=== PATIENT | female | born 1970 | race Caucasian/White ===

== ENCOUNTER 2021-02-04 02:32 | Inpatient (IN) | payer OTHER, SELFPAY ==
[2021-02-04] VITALS (61 sets, daily range): BP systolic 78–139; BP diastolic 39–93; PULSE 51–108; RESP 18–40; TEMP 36.8–37.2; O2SAT 37–99; BMI 39.8
--- NOTE | 2021-02-04 02:38 | XRR_ITS ---
PROCEDURE INFORMATION: Exam: XR Chest Exam date and time: 02/04/2021 2:38 AM Age: 50 years old Clinical indication: Shortness of breath; Patient HX: Patient arrived to er with spo2 of 30 percent. Unable to obtain further history. ; Additional info: SOB TECHNIQUE: Imaging protocol: XR of the chest. Views: 1 view. COMPARISON: No relevant prior studies available. FINDINGS: Lungs: Diffuse interstitial and airspace opacities which may be secondary to edema or COVID-19. Pleural spaces: Unremarkable. No pleural effusion. No pneumothorax. Heart/Mediastinum: Unremarkable. No cardiomegaly. Bones/joints: Unremarkable. XR/XR chest 1V portable [id number] IMPRESSION: Diffuse interstitial and airspace opacities which may be secondary to edema or COVID-19. Radiation Dose CTDIVOL = (mGy): DLP = (mGy-cm)
--- NOTE | 2021-02-04 02:39 | ECG_ITS ---
[facility] Test Date: 2021-02-04 Pat Name: Debbie Martin Department: Room: [facility] Gender: Female Security Messenger: : [phone] Requested By: Francisco Nunez Order Number: [id number] Reading MD: YARELIS MEJIA Measurements Intervals Mobile Rate: 76 P: 15 WV: 129 QRS: -14 QRSD: 102 T: -2 QT: 407 QTc: 460 Interpretive Statements SINUS RHYTHM POSSIBLE ANTERIOR MYOCARDIAL INFARCTION , OF INDETERMINATE AGE [30 ms Q WAVE IN V3/V4, OR R < 0.2 mV IN V4] No previous ECG available for comparison Electronically Signed On 02-05-2021 0:01:21 CDT by YARELIS MEJIA [id number]
[2021-02-04 02:41] LABS: Glucose Point of Care 331 mg/dL (70-110)
--- NOTE | 2021-02-04 02:44 | ED_ITS ---
HPI - Altered Mental Status General: Chief Complaint: Altered Mental Status Stated Complaint: HIGH BLOOD SUGAR Time Seen by Provider: 02/04/21 02:32 Source: patient and EMS Mode of arrival: EMS Limitations: altered mental status History of Present Illness: HPI narrative: 50-year-old female who is here with EMS for altered mental status he states that she woke up at 1 AM altered thought it might be due to her diabetes as her blood sugars been running high and they just recently moved here from [place]. Patient here is able to respond she tells me her name not able to really answer any other questions patient is very cyanotic appearing EMS states that they never could really get a pulse ox on her because she is combative patient has been gave her 16 units of insulin roughly an hour ago. No known chest pain or injuries. is not here at this time to get any history. Patient initial pulse ox here is 37% with a good Pleth 0315 patient is now completely awake and able answer all my questions she is on BiPAP she states she has had a cough over the last week had increasing shortness of breath she was very hypoxic upon arrival. Review of Systems General: Reports: ROS unobtainable due to mental status Physical Exam Const: COMMON NORMALS: alert; negative for patient oriented x3 EXAM LIMITATIONS: altered mental status GENERAL APPEARANCE: ill appearing NUTRITIONAL APPEARANCE: obese HENMT: COMMON NORMALS: normocephalic and atraumatic HEAD & SCALP: normocephalic and atraumatic Eye: COMMON NORMALS: Equal, round and reactive pupils present and EOMs intact bilaterally PUPIL: Yes Equal, round and reactive pupils present Neck/C-Spine: COMMON NORMALS: full ROM and supple Chest: COMMONS NORMALS: normal inspection of the chest and normal palpation of entire chest wall Resp: EFFORT & INSPECTION: Yes tachypneic and Yes respiratory distress AUSCULTATION: rales OTHER: Oral cyanosis Cardio: COMMON NORMALS: regular rate, regular rhythm and No murmurs present (Cardio) RATE: regular rate RHYTHM: regular rhythm GI: COMMON NORMALS: Normal to inspection, nondistended, normoactive bowel sounds present, Soft to palpation, non-tender and no masses PALPATION: Yes Soft to palpation Extremity: COMMON NORMALS: normal to inspection and full ROM Neuro: COMMON NORMALS: moves all extremities; negative for patient oriented x3 SENSORIUM/ORIENTATION: Yes alert Psych: COMMON NORMALS: cooperative; negative for mental status grossly normal Skin: COMMON NORMALS: no rashes or lesions noted and no wounds GENERAL SKIN EXAM: no rashes or lesions noted Course Reevaluation(s): Reevaluation #1: Patient placed on nonrebreather then BiPAP pulse ox is now up to 90 she is now awake and alert answering all my questions she knows her name knows where she is from she does not remember what happened and does not have anything that happened tonight or how she got here. Time: 03:05 Vital Signs: Vital signs: Vital Signs Temperature 98.3 F 02/04/21 02:51 Pulse Rate 60 02/04/21 04:10 Respiratory Rate 28 H 02/04/21 04:10 Blood Pressure 94/44 02/04/21 04:10 Pulse Oximetry 88 L 02/04/21 04:10 MDM - Altered Mental Status MDM Narrative: Medical decision making narrative: Patient presents with severe hypoxia likely from Covid pneumonia patient's hypoxia is improving here on BiPAP. X-ray shows severe pneumonia spoke to her at length and recommended intubation at at this time as her pulse ox is in the low 90s on 100% BiPAP she is adamantly refusing intubation she states she does not want to be intubated unless she is on the verge of coding. Patient is hypotensive is well informed but have to start pressors I recommended a central line as she only has 2 small IVs she also refused central line placement at this time she states that she does not want a central line she knows what those are and would rather have it ran through IV I did explain her the risks of extravasation she still refused a central line as well. Spoke to hospitalist will admit to the ICU. Lab Data: Labs: Lab Results 02/04/21 02/04/21 02/04/21 02:36 02:50 02:50 WBC 8.0 10^3/uL 10^3/ uL (4.0-10.0) RBC 5.36 10^6/uL H 10 ^6/uL (4.1-5.3) Hgb 16.4 g/dL H g/dL (11.5-15.3) Hct 48.6 % H % (37.0-47.0) MCV 90.7 fl fl (81-99) MCH 30.6 pg pg (28.0-34.0) MCHC 33.7 g/dL g/dL (30.0-36.0) RDW 13.4 % % (12.1-15.1) Plt Count 343 10^3/cmm 10^3 /cmm (130-400) MPV 10.9 fL H fL (7.4-10.4) Neut % (Auto) 79.8 % % Lymph % (Auto) 14.6 % % Cherry % (Auto) 3.2 % % Eos % (Auto) 0.0 % % Baso % (Auto) 0.2 % % Neut # (Auto) 6.41 10^3/uL 10^3 /uL (1.8-7.7) Lymph # (Auto) 1.2 10^3/uL 10^3/ uL (0.8-4.8) Cherry # (Auto) 0.3 10^3/uL 10^3/ uL (0.2-0.9) Eos # (Auto) 0.0 10^3/uL 10^3/ uL (0.0-0.8) Baso # (Auto) 0.0 10^3/uL 10^3/ uL (0.0-0.1) Nucleated RBC % (a uto) 0 % % Nucleated RBCs # 0.0 /100WBC /100W BC PT 13.00 SECONDS SEC ONDS (12.1-14.9) INR 0.96 (0.8-1.2) D-Dimer Specimen Type Sample Site ABG pH ABG pCO2 ABG pO2 ABG HCO3 ABG Base Excess Bam Test Hematocrit O2 Delivery Device FiO2 Graphic Design Assistant ID Sodium Potassium Chloride Carbon Dioxide Anion Gap BUN Creatinine GFR Calculation Glucose POC Glucose 331 mg/dL H mg/dL (70-110) Calculated Osmolal ity Lactate Calcium Magnesium Total Bilirubin AST ALT Alkaline Phosphata se Troponin T Baselin e C-Reactive Protein NT-Pro-B Natriuret Pep Total Protein Albumin Globulin TSH Urine Color Urine Appearance Urine pH Ur Specific Gravit y Urine Protein Urine Glucose (UA) Urine Ketones Urine Blood Urine Nitrate Urine Bilirubin Urine Urobilinogen Ur Leukocyte Danae ase Salicylates Urine Opiates Scre en Acetaminophen Ur Barbiturates Sc reen Ur Phencyclidine S crn Ur Amphetamines Sc reen U Benzodiazepines Scrn Urine Cocaine Scre en U Marijuana (THC) Screen Ethyl Alcohol Serum Ketones SARS-CoV-2 Ag (Rap id) 02/04/21 02/04/21 02/04/21 02:50 02:50 02:50 WBC RBC Hgb Hct MCV MCH MCHC RDW Plt Count MPV Neut % (Auto) Lymph % (Auto) Cherry % (Auto) Eos % (Auto) Baso % (Auto) Neut # (Auto) Lymph # (Auto) Cherry # (Auto) Eos # (Auto) Baso # (Auto) Nucleated RBC % (a uto) Nucleated RBCs # PT INR D-Dimer Specimen Type Sample Site ABG pH ABG pCO2 ABG pO2 ABG HCO3 ABG Base Excess Bam Test Hematocrit O2 Delivery Device FiO2 Graphic Design Assistant ID Sodium 140 mmol/L mmol/L (136-145) Potassium 3.7 mmol/L mmol/L (3.5-5.1) Chloride 94 mmol/L L mmol/ L (98-107) Carbon Dioxide 14 mmol/L L mmol/ L (22-29) Anion Gap 35.7 H (5-19) BUN 15 mg/dL mg/dL (6-20) Creatinine 1.0 mg/dL H mg/dL (0.5-0.9) GFR Calculation 58.5 mL/min L mL/ min (90-130) Glucose 334 mg/dL H mg/dL (65-115) POC Glucose Calculated Osmolal ity 304 mOsm/kg H mOs m/kg (285-295) Lactate Calcium 8.6 mg/dL mg/dL (8.5-10.5) Magnesium 2.2 mg/dL mg/dL (1.7-2.3) Total Bilirubin 0.4 mg/dL mg/dL (0.15-1.2) AST 72 U/L H U/L (0-32) ALT 27 U/L U/L (0-33) Alkaline Phosphata se 110 IU/L H IU/L (35-105) Troponin T Baselin e 16 ng/L H ng/L (0-10) C-Reactive Protein NT-Pro-B Natriuret Pep Total Protein 6.9 g/dL g/dL (6.6-8.7) Albumin 3.4 g/dL L g/dL (3.5-5.2) Globulin 3.5 g/dL g/dL (1.3-4.6) TSH 0.80 uIU/mL uIU/m L (0.27-4.20) Urine Color Urine Appearance Urine pH Ur Specific Gravit y Urine Protein Urine Glucose (UA) Urine Ketones Urine Blood Urine Nitrate Urine Bilirubin Urine Urobilinogen Ur Leukocyte Danae ase Salicylates < 0.3 mg/dL L mg/ dL (3-10) Urine Opiates Scre en Acetaminophen < 5.0 ug/mL L ug/ mL (10-30) Ur Barbiturates Sc reen Ur Phencyclidine S crn Ur Amphetamines Sc reen U Benzodiazepines Scrn Urine Cocaine Scre en U Marijuana (THC) Screen Ethyl Alcohol < 10 mg/dL mg/dL (0-10) Serum Ketones Negative (Negative) SARS-CoV-2 Ag (Rap id) 02/04/21 02/04/21 02/04/21 02:50 02:50 02:50 WBC RBC Hgb Hct MCV MCH MCHC RDW Plt Count MPV Neut % (Auto) Lymph % (Auto) Cherry % (Auto) Eos % (Auto) Baso % (Auto) Neut # (Auto) Lymph # (Auto) Cherry # (Auto) Eos # (Auto) Baso # (Auto) Nucleated RBC % (a uto) Nucleated RBCs # PT INR D-Dimer 1.30 ug/mIFEU H u g/mIFEU (0-0.59) Specimen Type Sample Site ABG pH ABG pCO2 ABG pO2 ABG HCO3 ABG Base Excess Bam Test Hematocrit O2 Delivery Device FiO2 Graphic Design Assistant ID Sodium Potassium Chloride Carbon Dioxide Anion Gap BUN Creatinine GFR Calculation Glucose POC Glucose Calculated Osmolal ity Lactate 12.6 mmol/L H* mm ol/L (0.5-2.2) Calcium Magnesium Total Bilirubin AST ALT Alkaline Phosphata se Troponin T Baselin e C-Reactive Protein 121.1 mg/L H mg/L (0.0-4.9) NT-Pro-B Natriuret Pep 2089 pg/mL H pg/m L (0-125) Total Protein Albumin Globulin TSH Urine Color Urine Appearance Urine pH Ur Specific Gravit y Urine Protein Urine Glucose (UA) Urine Ketones Urine Blood Urine Nitrate Urine Bilirubin Urine Urobilinogen Ur Leukocyte Danae ase Salicylates Urine Opiates Scre en Acetaminophen Ur Barbiturates Sc reen Ur Phencyclidine S crn Ur Amphetamines Sc reen U Benzodiazepines Scrn Urine Cocaine Scre en U Marijuana (THC) Screen Ethyl Alcohol Serum Ketones SARS-CoV-2 Ag (Rap id) 02/04/21 02/04/21 02/04/21 02:50 03:05 03:15 WBC RBC Hgb Hct MCV MCH MCHC RDW Plt Count MPV Neut % (Auto) Lymph % (Auto) Cherry % (Auto) Eos % (Auto) Baso % (Auto) Neut # (Auto) Lymph # (Auto) Cherry # (Auto) Eos # (Auto) Baso # (Auto) Nucleated RBC % (a uto) Nucleated RBCs # PT INR D-Dimer Specimen Type Arterial Sample Site Radial, right ABG pH 7.34 L (7.35-7.45) ABG pCO2 31.2 mmHg L mmHg (35-45) ABG pO2 54.9 mmHg L mmHg (80.0-100.0) ABG HCO3 16.9 mmol/L L mmo l/L (22-26) ABG Base Excess -7.5 mmol/L L mmo l/L (-2.0-2.0) Bam Test Pos Hematocrit 49.8 % H % (37-47) O2 Delivery Device Bipap FiO2 100.0 % % Graphic Design Assistant ID [id number] Sodium Potassium Chloride Carbon Dioxide Anion Gap BUN Creatinine GFR Calculation Glucose POC Glucose Calculated Osmolal ity Lactate Calcium Magnesium Total Bilirubin AST ALT Alkaline Phosphata se Troponin T Baselin e C-Reactive Protein NT-Pro-B Natriuret Pep Total Protein Albumin Globulin TSH Urine Color Yellow (Yellow) Urine Appearance Clear (CLEAR) Urine pH 5 (5-7) Ur Specific Gravit y 1.015 (1.005-1.030) Urine Protein Neg (Negative) Urine Glucose (UA) 4+ H (Normal) Urine Ketones 1+ H (Negative) Urine Blood Neg (Negative) Urine Nitrate Negative (Negative) Urine Bilirubin Neg (Negative) Urine Urobilinogen Norm mg/dL mg/dL (Negative) Ur Leukocyte Danae ase Negative (Negative) Salicylates Urine Opiates Scre en Acetaminophen Ur Barbiturates Sc reen Ur Phencyclidine S crn Ur Amphetamines Sc reen U Benzodiazepines Scrn Urine Cocaine Scre en U Marijuana (THC) Screen Ethyl Alcohol Serum Ketones SARS-CoV-2 Ag (Rap id) Positive H (Negative) 02/04/21 03:15 WBC RBC Hgb Hct MCV MCH MCHC RDW Plt Count MPV Neut % (Auto) Lymph % (Auto) Cherry % (Auto) Eos % (Auto) Baso % (Auto) Neut # (Auto) Lymph # (Auto) Cherry # (Auto) Eos # (Auto) Baso # (Auto) Nucleated RBC % (a uto) Nucleated RBCs # PT INR D-Dimer Specimen Type Sample Site ABG pH ABG pCO2 ABG pO2 ABG HCO3 ABG Base Excess Bam Test Hematocrit O2 Delivery Device FiO2 Graphic Design Assistant ID Sodium Potassium Chloride Carbon Dioxide Anion Gap BUN Creatinine GFR Calculation Glucose POC Glucose Calculated Osmolal ity Lactate Calcium Magnesium Total Bilirubin AST ALT Alkaline Phosphata se Troponin T Baselin e C-Reactive Protein NT-Pro-B Natriuret Pep Total Protein Albumin Globulin TSH Urine Color Urine Appearance Urine pH Ur Specific Gravit y Urine Protein Urine Glucose (UA) Urine Ketones Urine Blood Urine Nitrate Urine Bilirubin Urine Urobilinogen Ur Leukocyte Danae ase Salicylates Urine Opiates Scre en Negative ng/mL ng /mL (Negative) Acetaminophen Ur Barbiturates Sc reen Negative ng/mL ng /mL (Negative) Ur Phencyclidine S crn Negative ng/mL ng /mL (Negative) Ur Amphetamines Sc reen Negative ng/mL ng /mL (Negative) U Benzodiazepines Scrn Negative ng/mL ng /mL (Negative) Urine Cocaine Scre en Negative ng/mL ng /mL (Negative) U Marijuana (THC) Screen Positive ng/mL H ng/mL (Negative) Ethyl Alcohol Serum Ketones SARS-CoV-2 Ag (Rap id) Imaging Data^: CXR: Attestation: I personally reviewed and interpreted this imaging study as follows: My impression: Severe multilobar pneumonia consistent with Covid pneumonia EKG Data^: EKG 1: Attestation: I personally reviewed and interpreted this EKG as follows: EKG interpretation date: 02/04/21 EKG interpretation time: 03:04 Interpretation: nsr hr [address] or t wave abnormalities qrs 102 qtc 438 Critical Care Time Critical Care Time: Critical Care Time: Yes Total Critical Care Time: 36 Attestation: The high probability of a clinically significant, sudden or life threatening deterioration of the patient's [] system(s) required my full and direct attention, intervention and personal management. The critical care time is as shown. This time is in addition to time spent performing any reported procedures but includes the following: [x] Data and vital sign review and interpretation [x] Patient assessment, examination and intervention [x] Documentation [x] Medication orders and management Coding Level of Care Code ED Side Splitter for Chg Fwd Exam Comprehensive
[2021-02-04 02:58] LABS: Basophils % 0.2 %; Hematocrit 48.6 % (37.0-47.0); Hemoglobin 16.4 g/dL (11.5-15.3); Lymphocytes # 1.2 10^3/uL (0.8-4.8); Lymphocytes % 14.6 %; Mean Corpuscular HGB Conc 33.7 g/dL (30.0-36.0); Mean Corpuscular Hemoglobin 30.6 pg (28.0-34.0); Mean Corpuscular Volume 90.7 fl (81-99); Mean Platelet Volume 10.9 fL (7.4-10.4); Monocytes # 0.3 10^3/uL (0.2-0.9); Monocytes % 3.2 %; Neutrophils # 6.41 10^3/uL (1.8-7.7); Neutrophils % 79.8 %; Nucleated Red Blood Cells % 0 %; Platelet Count 343 10^3/cmm (130-400); Red Blood Count 5.36 10^6/uL (4.1-5.3); Red Cell Distribution Width 13.4 % (12.1-15.1)
[2021-02-04] MEDS: sodium chloride 0.9% 1,000 ML 999 ML IV (03:00)
[2021-02-04 03:10] LABS: Ketone (Acetest) Serum Negative (Negative)
[2021-02-04 03:15] LABS: INR 0.96 (0.8-1.2)
[2021-02-04] MEDS: dexamethasone 10 mg/mL INJ IVP (03:15)
[2021-02-04 03:18] LABS: ABG PCO2 31.2 mmHg (35-45); ABG PH Result 7.34 (7.35-7.45); Arterial Blood Gas Hematocrit 49.8 % (37-47); Base Excess ABG -7.5 mmol/L (-2.0-2.0); Blood Gas Allen Test Pos; Blood Gas Sample Site Radial, right; Blood Gas Sample Type Arterial; HCO3 ABG 16.9 mmol/L (22-26); Oxygen Device BIPAP; PO2 ABG 54.9 mmHg (80.0-100.0)
[2021-02-04 03:25] LABS: Troponin(5th) Baseline 16 ng/L (0-10)
[2021-02-04 03:34] LABS: Alanine Aminotransferase 27 U/L (0-33); Albumin Level 3.4 g/dL (3.5-5.2); Alkaline Phosphatase 110 IU/L (35-105); Anion Gap 35.7 (5-19); Aspartate Amino Transferase 72 U/L (0-32); Blood Urea Nitrogen 15 mg/dL (6-20); Calcium 8.6 mg/dL (8.5-10.5); Carbon Dioxide 14 mmol/L (22-29); Chloride 94 mmol/L (98-107); Globulin 3.5 g/dL (1.3-4.6); Glomerular Filtration Rate 58.5 mL/min (90-130); Glucose 334 mg/dL (65-115); Magnesium 2.2 mg/dL (1.7-2.3); Osmolality Calculated 304 mOsm/kg (285-295); Potassium 3.7 mmol/L (3.5-5.1); Sodium 140 mmol/L (136-145); Total Bilirubin 0.4 mg/dL (0.15-1.2); Total Protein 6.9 g/dL (6.6-8.7)
[2021-02-04 03:34] LABS: Add Urine Microscopic? NO; Charge for UA Resulting for Rev
[2021-02-04 03:41] LABS: Acetaminophen < 5.0 ug/mL (10-30); Alcohol Level < 10 mg/dL (0-10); Salicylate < 0.3 mg/dL (3-10)
[2021-02-04 03:42] LABS: Lactate (Lactic Acid level) 12.6 mmol/L (0.5-2.2)
[2021-02-04 03:42] LABS: Glucose Urine UA 4+ (Normal); Protein Urine Neg (Negative); Specific Gravity, Urine 1.015 (1.005-1.030); Urine Appearance Clear (CLEAR); Urine Color Yellow (Yellow); pH Urine 5 (5-7)
[2021-02-04 03:43] LABS: Bilirubin Urine Neg (Negative); Blood Urine Neg (Negative); Ketones Urine 1+ (Negative); Leukocyte Esterase Urine Negative (Negative); Nitrate Urine Negative (Negative); Urobilinogen Urine Norm (Negative)
[2021-02-04 03:45] LABS: Amphetamines Screen Urine Negative (Negative); Barbiturates Screen Urine Negative (Negative); Benzodiazepines Screen Urine Negative (Negative); Cocaine Screen Urine Negative (Negative); Opiate Screen Urine Negative (Negative); PCP Screen Urine Negative (Negative); THC Screen Urine Positive (Negative)
[2021-02-04] MEDS: sodium chloride 0.9% 500 ML 999 ML IV ×2 (03:46→04:30)
[2021-02-04 03:54] LABS: SARS Covid-2 Antigen Positive (Negative)
[2021-02-04 03:59] LABS: C Reactive Protein 121.1 mg/L (0.0-4.9); NT Pro B Type Natriuretic Pept 2089 pg/mL (0-125)
--- NOTE | 2021-02-04 04:50 | P.HP_ITS ---
Providers/Chief Complaint Admitting Physician: Owen Brizuela Chief Complaint: HIGH BLOOD SUGAR History of Present Illness KYLE ROSENBERG is a 50 year old female with past medical history of morbid obesity, diabetes, unvaccinated for COVID-19 who was brought to emergency room due to altered mental status and high sugar level. On presentation her oxygen saturation was in 30s, and severe respiratory distress and hypotensive. Chest x-ray revealed bilateral pneumonia very suspicious for COVID-19. COVID-19 testing came back positive. The patient also was found to have lactic anion gap acidosis, acute kidney injury, and blood sugar level of 330. The patient was confused and combative. She refused central line placement and intubation. BiPAP was initiated with FiO2 of 100%. Her oxygenation improved. Currently her saturation is 90. Norepinephrine was initiated through peripheral line. The patient also received 2 boluses of normal saline. Mental status normalized. Currently she is feeling a little better. She is oriented, awake, but still in significant distress. She states that her symptoms started since last . She reports progressively worsening shortness of breath and cough. Denies chest pain, chills, hemoptysis, nausea or vomiting, diarrhea. Denies similar episodes in the past. She is an ex-smoker. She recently moved from [place]. Review of Systems General: Reports: ROS unobtainable due to medical condition (BiPAP and difficulty with communication) Medications/Allergies Allergies Allergy/AdvReac Type Severity Reaction Status Date / Time buspirone [From BuSpar] Allergy ADR-Agitate Verified 02/04/21 03:20 d codeine Allergy ADR-Muscle Verified 02/04/21 03:20 Pain prochlorperazine Allergy ADR-Agitate Verified 02/04/21 03:20 [From Compazine] d Vitals/I&O/Wt Last Vital Signs Temp 98.3 F 02/04/21 02:51 Pulse 59 L 02/04/21 04:40 Resp 28 H 02/04/21 04:40 BP 84/41 02/04/21 04:40 Pulse Ox 90 02/04/21 04:40 02/03/21 02/03/21 02/04/21 14:59 22:59 06:59 Intake Total 1522.86 / 1522.86 Balance 1522.86 / 1522.86 Weight last 48 hrs Weight 102.058 kg Physical Exam Narrative: EXAM NARRATIVE: The patient is in moderate distress secondary to shortness of breath and BiPAP mask. Reports feeling thirsty. Awake alert and oriented. Skin is warm and dry. Dry mucous membranes. Eyes PERRL, extraocular muscles are intact Neck supple. No JVD Lungs bilaterally decreased breath sounds. Coarse breath sounds and bilateral crackles are present. Tachypnea. S1, S2, regular Abdomen soft, nontender, bowel sounds are present Extremities. Bilateral pedal edema. No cyanosis no calf tenderness bilaterally Moves all extremities. No facial asymmetry. Normal speech. Urinary Catheter Management^: Yo: Cath Placed During This Visit: yes Urinary Catheter Date of Insertion: 02/04/21 Urinary Catheter Time of Insertion: 03:15 Data : 02/04/21 02:50 02/04/21 02:50 Other Labs: Laboratory Results WBC 8.0 10^3/uL (4.0-10.0) 02/04/21 02:50 RBC 5.36 10^6/uL (4.1-5.3) H 02/04/21 02:50 Hgb 16.4 g/dL (11.5-15.3) H 02/04/21 02:50 Hct 48.6 % (37.0-47.0) H 02/04/21 02:50 MCV 90.7 fl (81-99) 02/04/21 02:50 MCH 30.6 pg (28.0-34.0) 02/04/21 02:50 MCHC 33.7 g/dL (30.0-36.0) 02/04/21 02:50 RDW 13.4 % (12.1-15.1) 02/04/21 02:50 Plt Count 343 10^3/cmm (130-400) 02/04/21 02:50 MPV 10.9 fL (7.4-10.4) H 02/04/21 02:50 Neut % (Auto) 79.8 % 02/04/21 02:50 Lymph % (Auto) 14.6 % 02/04/21 02:50 [place] % (Auto) 3.2 % 02/04/21 02:50 Eos % (Auto) 0.0 % 02/04/21 02:50 Baso % (Auto) 0.2 % 02/04/21 02:50 Neut # (Auto) 6.41 10^3/uL (1.8-7.7) 02/04/21 02:50 Lymph # (Auto) 1.2 10^3/uL (0.8-4.8) 02/04/21 02:50 [place] # (Auto) 0.3 10^3/uL (0.2-0.9) 02/04/21 02:50 Eos # (Auto) 0.0 10^3/uL (0.0-0.8) 02/04/21 02:50 Baso # (Auto) 0.0 10^3/uL (0.0-0.1) 02/04/21 02:50 Nucleated RBC % (auto) 0 % 02/04/21 02:50 Nucleated RBCs # 0.0 /100WBC 02/04/21 02:50 PT 13.00 SECONDS (12.1-14.9) 02/04/21 02:50 INR 0.96 (0.8-1.2) 02/04/21 02:50 D-Dimer 1.30 ug/mIFEU (0-0.59) H 02/04/21 02:50 Specimen Type Arterial 02/04/21 03:05 Sample Site Radial, right 02/04/21 03:05 ABG pH 7.34 (7.35-7.45) L 02/04/21 03:05 ABG pCO2 31.2 mmHg (35-45) L 02/04/21 03:05 ABG pO2 54.9 mmHg (80.0-100.0) L 02/04/21 03:05 ABG HCO3 16.9 mmol/L (22-26) L 02/04/21 03:05 ABG Base Excess -7.5 mmol/L (-2.0-2.0) L 02/04/21 03:05 Bam Test Pos 02/04/21 03:05 Hematocrit 49.8 % (37-47) H 02/04/21 03:05 O2 Delivery Device Bipap 02/04/21 03:05 FiO2 100.0 % 02/04/21 03:05 Air Conditioning Insulation Installer ID [email or web address] 02/04/21 03:05 Sodium 140 mmol/L (136-145) 02/04/21 02:50 Potassium 3.7 mmol/L (3.5-5.1) 02/04/21 02:50 Chloride 94 mmol/L (98-107) L 02/04/21 02:50 Carbon Dioxide 14 mmol/L (22-29) L 02/04/21 02:50 Anion Gap 35.7 (5-19) H 02/04/21 02:50 BUN 15 mg/dL (6-20) 02/04/21 02:50 Creatinine 1.0 mg/dL (0.5-0.9) H 02/04/21 02:50 GFR Calculation 58.5 mL/min (90-130) L 02/04/21 02:50 Glucose 334 mg/dL (65-115) H 02/04/21 02:50 POC Glucose 331 mg/dL (70-110) H 02/04/21 02:36 Calculated Osmolality 304 mOsm/kg (285-295) H 02/04/21 02:50 Lactate 12.6 mmol/L (0.5-2.2) H* 02/04/21 02:50 Calcium 8.6 mg/dL (8.5-10.5) 02/04/21 02:50 Magnesium 2.2 mg/dL (1.7-2.3) 02/04/21 02:50 Total Bilirubin 0.4 mg/dL (0.15-1.2) 02/04/21 02:50 AST 72 U/L (0-32) H 02/04/21 02:50 ALT 27 U/L (0-33) 02/04/21 02:50 Alkaline Phosphatase 110 IU/L (35-105) H 02/04/21 02:50 Troponin T Baseline 16 ng/L (0-10) H 02/04/21 02:50 C-Reactive Protein 121.1 mg/L (0.0-4.9) H 02/04/21 02:50 NT-Pro-B Natriuret Pep 2089 pg/mL (0-125) H 02/04/21 02:50 Total Protein 6.9 g/dL (6.6-8.7) 02/04/21 02:50 Albumin 3.4 g/dL (3.5-5.2) L 02/04/21 02:50 Globulin 3.5 g/dL (1.3-4.6) 02/04/21 02:50 TSH 0.80 uIU/mL (0.27-4.20) 02/04/21 02:50 Urine Color Yellow (Yellow) 02/04/21 03:15 Urine Appearance Clear (CLEAR) 02/04/21 03:15 Urine pH 5 (5-7) 02/04/21 03:15 Ur Specific [place] 1.015 (1.005-1.030) 02/04/21 03:15 Urine Protein Neg (Negative) 02/04/21 03:15 Urine Glucose (UA) 4+ (Normal) H 02/04/21 03:15 Urine Ketones 1+ (Negative) H 02/04/21 03:15 Urine Blood Neg (Negative) 02/04/21 03:15 Urine Nitrate Negative (Negative) 02/04/21 03:15 Urine Bilirubin Neg (Negative) 02/04/21 03:15 Urine Urobilinogen Norm mg/dL (Negative) 02/04/21 03:15 Ur Leukocyte Esterase Negative (Negative) 02/04/21 03:15 Salicylates < 0.3 mg/dL (3-10) L 02/04/21 02:50 Urine Opiates Screen Negative ng/mL (Negative) 02/04/21 03:15 Acetaminophen < 5.0 ug/mL (10-30) L 02/04/21 02:50 Ur Barbiturates Screen Negative ng/mL (Negative) 02/04/21 03:15 Ur Phencyclidine Scrn Negative ng/mL (Negative) 02/04/21 03:15 Ur Amphetamines Screen Negative ng/mL (Negative) 02/04/21 03:15 U Benzodiazepines Scrn Negative ng/mL (Negative) 02/04/21 03:15 Urine Cocaine Screen Negative ng/mL (Negative) 02/04/21 03:15 U Marijuana (THC) Screen Positive ng/mL (Negative) H 02/04/21 03:15 Ethyl Alcohol < 10 mg/dL (0-10) 02/04/21 02:50 Serum Ketones Negative (Negative) 02/04/21 02:50 SARS-CoV-2 Ag (Rapid) Positive (Negative) H 02/04/21 02:50 Micro: Microbiology 02/04/21 03:50 Blood Culture - Preliminary Blood SPECIMEN COLLECTED 02/04/21 03:35 Blood Culture - Preliminary Blood SPECIMEN COLLECTED A&P Assessment and plan (1) Acute respiratory failure with hypoxia: We will continue BiPAP. We will repeat her ABGs. If there is no s ignificant improvement will consider intubation after discussions with the patient or with her . Status: Acute (2) Severe sepsis with septic shock: We will check her procalcitonin level. For now we will cover her with vancomycin, Zosyn and azithromycin. Will consider de-escalating her antibiotics if there is no evidence of bacterial component. We will continue norepinephrine. We will ask for PICC line placement since she refused central line. We will continue IV fluids with close monitoring for any fluid overload. We will reassess her in the morning. We will repeat her labs in the morning. Status: Acute (3) Pneumonia due to COVID-19 virus: We will start the patient on remdesivir, Solu-Medrol, Tocilizumab, v itamins. Will monitor chest x-ray, CRP, D-dimer Status: Acute (4) Lactic acidosis: As above Status: Acute (5) Acute kidney injury: As above Status: Acute (6) Diabetes: Will use NPH with Solu-Medrol and will cover her with insulin sliding scale. We will adjust the doses depending on glycemia level Status: Acute (7) Acute metabolic encephalopathy due to hypoglycemia: Resolving. Status: Acute Additional A&P Information 50 year old female with past medical history of morbid obesity, diabetes, unvaccinated for COVID-19 who was brought to emergency room due to altered mental status. The patient was found to have severe hypoxia. Oxygen saturation at 30s on presentation. Testing in the emergency room revealed bilateral severe pneumonia probably due to COVID-19. The patient is also in severe septic shock with acute metabolic, lactic acidosis. The patient refused central line and intubation. Currently on BiPAP with improved oxygenation. Prognosis is guarde d. I had a long discussion with the patient regarding possible negative outcomes. She changed her mind. In case if she does not improve with BiPAP she is okay with intubation and mechanical ventilation. She is also okay with CPR. In case if she is unable to make medical decisions her will be her healthcare proxy. However today he was unable to stay. He spoke with ER physician and nursing staff. CODE STATUS. Full code. DVT prophylaxis. Lovenox full dose. GI prophylaxis. Famotidine. Attestations Medical Necessity Statement*: The patient is being admitted in critical condition to ICU. I expect that the patient will spend more than 2 midnights in the hospital. Coding Level of Care Code Acute Chronic Disease Epidemiologist for Jarad Subramanian Diagnoses Acute respiratory failure with hypoxia J96.01 Severe sepsis with septic shock A41.9; R65.21 Pneumonia due to COVID-19 virus U07.1; J12.82 Lactic acidosis E87.2 Acute kidney injury N17.9 Diabetes E11.9 Acute metabolic encephalopathy due to hypoglycemia G93.41; E16.2
[2021-02-04] MEDS: remdesivir 200 MG in sodium chloride 0.9% (100 ml) 60 ML 100 MG IV (05:00)
[2021-02-04 05:31] LABS: Troponin 5 2HR 20.22 ng/L (0-10); Troponin 5 2HR Delta 4.22 ABS# (0-10)
[2021-02-04 06:16] LABS: Lactic Sepsis W/Reflex 4.1 mmol/L (0.5-2.2)
--- NOTE | 2021-02-04 06:25 | PC.NURSE ---
Pt sitting up in bed, tolerating Bi-pap without difficulty. RT at bedside; FiO2 decreased to 90%. Pt smiled and stated thank you and gave staff a thumbs up sign.
[2021-02-04] MEDS: TRAMadol 50 mg Tablet PO (06:34)
--- NOTE | 2021-02-04 07:30 | PC.NURSE ---
To floor Pt brought to floor by ER staff via [place]. Pt brought on non rebreather. PT was able to move from gurney to bed with help of ICU staff. Pt is alert and oriented and able to give history. Pt just moved here from [place]. She was hospitalized in December for an extended period of time for sepsis and shingles. Pt had originally stated to ER staff that she did not want intubation. She verbalized that she is now okay with being intubated. She was able to speak to her on the phone with nursing staff present to share with him her wishes. Pt and have been educated on visiting policy.
[2021-02-04 07:37] LABS: Reflex Lactate Order REFLEX LACTIC ORDERD
[2021-02-04] MEDS: azithromycin 500 MG in sodium chloride 0.9% 250 ML 250 MG IV (08:32)
[2021-02-04] MEDS: enoxaparin 100 mg/mL Syringe SUBCUT (08:35)
[2021-02-04] MEDS: famotidine 20 mg/2 mL INJ IVP ×2 (08:35→19:48)
--- NOTE | 2021-02-04 08:39 | ECG_ITS ---
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1970 Requested By: Francisco Nunez Order Number: [id number] Reading MD: YARELIS MEJIA Measurements Intervals [place] Rate: 59 P: 15 MA: 129 QRS: -8 QRSD: 101 T: -20 QT: 433 QTc: 429 Interpretive Statements SINUS BRADYCARDIA LOW QRS VOLTAGE IN PRECORDIAL LEADS [QRS DEFLECTION < 1.0 mV IN CHEST LEADS] Compared to ECG 02/04/2021 03:03:15 Low QRS voltage now present Sinus rhythm no longer present Myocardial infarct finding no longer present Electronically Signed On 02-05-2021 0:03:43 CDT by YARELIS MEJIA [email or web address]
[2021-02-04 09:01] LABS: Glucose Point of Care 355 mg/dL (70-110)
[2021-02-04] MEDS: insulin lispro 100 unit/1 mL SUBCUT (09:17)
[2021-02-04] MEDS: cholecalciferol (vitamin D3) 1,000 unit Tablet 2000 UNIT PO (09:21)
[2021-02-04] MEDS: piperacillin-tazobactam 3.375 GM in sodium chloride 0.9% (plus) 50 ML IV ×2 (09:22→17:38)
[2021-02-04] MEDS: ascorbic acid 500 mg Tablet 1000 MG PO (09:22)
[2021-02-04] MEDS: zinc gluconate 50 mg Tablet PO (09:22)
[2021-02-04 09:43] LABS: Lactic Acid level (Lactate) 2.3 mmol/L (0.5-2.2)
[2021-02-04 09:51] LABS: Anion Gap 22.1 (5-19); Blood Urea Nitrogen 20 mg/dL (6-20); Carbon Dioxide 21 mmol/L (22-29); Chloride 100 mmol/L (98-107); Glomerular Filtration Rate 75.6 mL/min (90-130); Glucose 334 mg/dL (65-115); Osmolality Calculated 304 mOsm/kg (285-295); Potassium 4.1 mmol/L (3.5-5.1); Sodium 139 mmol/L (136-145)
--- NOTE | 2021-02-04 10:04 | PC.CHAP ---
Pastoral Care Encounter/Spiritual Assessment Type of Contact [] Declined vehicle technician visit [] Patient/Family/Request visit [] Outpatient visit [] Follow-up visit [] Physician referral [] Code/Alert [x] Routine visit [] Staff referral [] Actively dying [] Patient sleeping [] Family support [] [] Out of room [] Palliative care [] [x] Receiving care in room [] Pre-surgical visit [] Trauma [] Long length of stay [x] ICU visit [] Other: Relational/Emotional Strength [] Patient feels connected with others/family/visitors/staff [] Distress [] Loneliness/isolation [] Abandonment Spirituality of Patient [] Person of Annalise [] Attends Evangelical of their Annalise [] Believes in Prayer [] Reads Bible or Episcopal materials [] There are Spiritual issues to be addressed Grocery Department Manager Interventions [x] Prayer [] Active listening [] Non-anxious presence [] Spiritual/emotional support [] Crisis/trauma care [] Spiritual counseling [] Bereavement support [] Provided bereavement packet [] Provided Bible/devotional materials [] Provided toy/stuffed animal, coloring book to patient or family member [] Provided Communion [] Anointing/Addison [] Salvation [x] Completed spiritual assessment [] Other: Impact on Illness or Injury [] Angry [] Fearful [] Anxious [] Often cries [] Exhaustion [] Unable to work [] Unable to attend mormonism [] Unable to walk/stand [] Unable to read [] Unable to drive [] Unable to eat/drink [] Unable to sleep [] Unable to be with family [] Patient intubated [] Other: Summary Time spent with patient
[2021-02-04 10:19] LABS: Procalcitonin 0.25 ng/mL (0-0.5)
--- NOTE | 2021-02-04 10:43 | USCV_ITS ---
Debbie Martin Age: 50 Gender: F : 1970 Exam Date: 02/04/2021 14:06 Ordering Phys: Robert Allen MD Technologist: Santino Burgess [place] [facility] [place] BP: 108 / 77 HR: 56 Rhythm: Sinus Technical Quality: Fair MEASUREMENTS (Male / Female) Normal Values 2D ECHO LV Diastolic Diameter PLAX 2.9 cm 4.2 - 5.9 / 3.9 - 5.3 cm LV Systolic Diameter PLAX 1.7 cm IVS Diastolic Thickness 1.0 cm 0.6 - 1.0 / 0.6 - 0.9 cm IVS Systolic Thickness 1.3 cm LVPW Diastolic Thickness 1.1 cm 0.6 - 1.0 / 0.6 - 0.9 cm LVPW Systolic Thickness 1.1 cm LVOT Diameter 2.1 cm LV Ejection Fraction 2D Teich 68.3 % LV Ejection Fraction MOD 2C 56.0 % LV Ejection Fraction 2C AL 57.0 % LA Diameter 3.6 cm LA Width 3.9 cm LA Height 5.0 cm RA Width 3.8 cm RA Height 4.2 cm Aorta at Sinotubular Diameter 2.1 cm DOPPLER AV Peak Velocity 129.0 cm/s LVOT Peak Velocity 86.0 cm/s AV Area Cont Eq vti 2.0 cm squared AV Area Cont Eq pk 2.2 cm squared MV Area PHT 5.0 cm squared Mitral E to A Ratio 1.0 MV E' Velocity 39.5 cm/s Mitral E to MV E' Ratio 9.1 Mitral E to LV E' Lateral Ratio 8.5 Mitral E to LV E' Septal Ratio 9.9 TR Peak Velocity 121.0 cm/s TR Peak Gradient 5.9 mmHg TV Peak E Velocity 94.0 cm/s Right Atrial Pressure 3.0 mmHg Pulmonary Artery Systolic Pressu 8.9 mmHg FINDINGS Left Ventricle Normal left ventricular cavity size. Normal left ventricular systolic function. Left ventricular ejection fraction is estimated at 55 %. Grade I/IV diastolic dysfunction (abnormal relaxation filling pattern), normal to mildly elevated filling pressures. Right Ventricle The right ventricle is normal in size and function. Right Atrium The right atrium is normal in size. Left Atrium The left atrium is normal in size. Mitral Valve Moderately thickened mitral valve. Moderate mitral annular calcification. No mitral valve stenosis. Trace mitral valve regurgitation. Aortic Valve Moderate aortic valve calcification. No aortic valve stenosis. No aortic valve regurgitation. Tricuspid Valve Structurally normal tricuspid valve without significant stenosis or regurgitation. Pulmonary artery systolic pressure is normal. Pulmonic Valve Structurally normal pulmonic valve without significant stenosis. There is no pulmonic regurgitation. Pericardium Normal pericardium without effusion. Aorta Normal ascending aorta dimension. CONCLUSIONS 1-Normal left ventricular cavity size. Normal left ventricular systolic function. Left ventricular ejection fraction is estimated at 55 %. Grade I/IV diastolic dysfunction (abnormal relaxation filling pattern), normal to mildly elevated filling pressures. 2-Moderately thickened mitral valve. Moderate mitral annular calcification. No mitral valve stenosis. Trace mitral valve regurgitation. 4-There is no pericardial effusion. 5-Pulmonary artery systolic pressure is within normal limits. 6-Right atrial pressure is around 5 mm of mercury. 7-There are no prior echocardiogram studies to compare. Jamie Titus MD (Electronically Signed) Final Date: 06 February 2021 15:59 S
[2021-02-04] MEDS: FUROsemide 10 mg/mL SDV 4mL 40 MG IVP (11:17)
[2021-02-04 11:34] LABS: Glucose Point of Care 271 mg/dL (70-110)
[2021-02-04] MEDS: midazolam 1 mg/mL INJ 2 mL 2 MG IVP (11:36)
[2021-02-04] MEDS: succinylcholine 20 mg/mL SDV 10mL 150 MG IVP (11:36)
[2021-02-04] MEDS: propofol 1,000 MG/100 ML INJ 9.19 MG IV (11:49)
--- NOTE | 2021-02-04 12:08 | USCV_ITS ---
Debbie Martin Age: 50 Gender: F : 1970 Exam Date: 02/04/2021 14:19 Ordering Phys: Robert Allen MD Technologist: Santino Burgess Exam Location: [facility] – [place] Indication: SOB HISTORY: SOB PROCEDURES: Bilaterally, the common femoral, superficial femoral, profunda femoral, popliteal, posterior tibial, greater saphenous veins, and the peroneal trunk were identified and interrogated in the standard fashion. FINDINGS: Normal 2-D Doppler and augmentation and compressibility throughout the lower extremity venous structures. Additional imaging through the proximal calf veins also reveals no thrombus. Limited evaluation of the greater saphenous vein is patent with no thrombus. CONCLUSIONS No DVT bilateral lower extremities. Dr. Gayle Reyes DO (Electronically Signed) Final Date: 04 February 2021 15:42 S
[2021-02-04] MEDS: insulin regular-human 250 UNIT in sodium chloride 0.9% 250 ML IV (12:46)
[2021-02-04] MEDS: vancomycin 1,500 MG/300 ML PIGGYBACK 200 MG IV (12:47)
[2021-02-04 13:46] LABS: Glucose Point of Care 237 mg/dL (70-110)
--- NOTE | 2021-02-04 15:44 | XR_ITS ---
WS: [id number] PORTABLE CHEST HISTORY: e.t. tube placement and o.g. tube placement. COMPARISON: 02/04/2021 Endotracheal tube is just above the bart should be retracted another centimeter. Nasogastric tube e xtends below the GE junction. Extensive bilateral pulmonary opacifications are similar to the prior study with no improvement. No p leural effusion or pneumothorax. Cardiac size: Mildly enlarged cardiac silhouette. Mediastinum/Aorta: Normal mediastinum. No osseous abnormality seen. XR/XR chest 1V portable [id number] IMPRESSION: 1. Endotracheal tube terminates above the bart but should be retracted 1.0 c entimeter for more optimal positioning. 2. Nasogastric tube in good position. 3. Diffuse bilateral opacifications consistent with pneumonia, no improvement.
--- NOTE | 2021-02-04 15:50 | PC.NURSE ---
Pt intubated Pt intubated by Dr Florence with the help of RT, Dr Harmon and nursing. Meds given for inbutation Ordered by Dr Harmon Fentanyl 50mcg Succinylcholine 150mg etomidate 30mg Ordered by Dr Florence Rocc 120mg Propofol 150mg
[2021-02-04] MEDS: rocuronium 10 mg/mL INJ 5mL 100 MG (16:09)
[2021-02-04] MEDS: cisatracurium 100 MG in sodium chloride 0.9% 50 ML 6.12 MG IV (16:10)
[2021-02-04 16:18] LABS: ABG PCO2 47.8 mmHg (35-45); ABG PH Result 7.33 (7.35-7.45); Alveolar-Arterial Oxygen Gradi 76.2 mmHg (5-10); Arterial Blood Gas Hematocrit 50.5 % (37-47); Base Excess ABG -1.2 mmol/L (-2.0-2.0); Blood Gas Allen Test Pos; Blood Gas Operator Identificat CAK; Blood Gas Sample Site Radial, left; Blood Gas Sample Type Arterial; Blood Gas Tidal Volume 0.38; Carboxyhemoglobin 0.7 %THgb (0.4-20.1); HCO3 ABG 25.3 mmol/L (22-26); HGB O2 Sat 92.2 % (95-100); Ionized Calcium Level - ABG 1.2 mmol/L (1.1-1.4); Methemoglobin 0.7 % (0.4-1.5); Oxygen Device VENT; Oxygen Saturation ABG 93.5; PO2 ABG 73.8 mmHg (80.0-100.0); Potassium Level - ABG 3.1 mmol/L (3.5-5.0); Total Hemoglobin 16.5 g/dL (12-16)
--- NOTE | 2021-02-04 17:01 | PC.PHAR ---
PTS HARJEET VERIFIED PTS MEDICATIONS
--- NOTE | 2021-02-04 17:28 | ANES.PROC ---
Anesthesia Procedures Procedure/Date: 02/04/21 Intubation: Time Out Performed: No Consent: requested by attending/covering physician and emergency procedure Sedative (amount): other (propofol 200 mg) Paralytic (amount): rocuronium (1.2 mg/kg) Laryngoscope: Henri (glidescope MAC 4) Assist Device Used: fiber optic device Tube Placement Confirmation: visualized tube passing through cords, equal breath sounds bilaterally and color change noted Patient Tolerated Procedure: well Intubation Complications: none
[2021-02-04 17:43] LABS: Glucose Point of Care 194 mg/dL (70-110)
--- NOTE | 2021-02-04 18:28 | XRR_ITS ---
PROCEDURE INFORMATION: Exam: XR Chest Exam date and time: 02/04/2021 6:28 PM Age: 50 years old Clinical indication: Other vascular access device placement or adjustment; Central line, non-tunnelled; Additional info: Post central line TECHNIQUE: Imaging protocol: XR of the chest. Views: 1 view. Total images: 1 COMPARISON: CR XR chest 1V portable [id number] 02/04/2021 3:48 PM FINDINGS: Tubes, catheters and devices: A left internal jugular central venous catheter is present, with its tip overlying the region of the right atrium. An endotracheal tube is present, terminating above the bart by 2.5 cm. Enteric tube seen entering the stomach with tip not visualized. Lungs: Bilateral pulmonary opacities are again noted with the right-sided opacities showing interval improvement. Pleural spaces: Unremarkable. No pleural effusion. No pneumothorax. Heart/Mediastinum: Heart size is stable when compared to the prior exam. Bones/joints: Osseous structures are unchanged from the prior exam. XR/XR chest 1V portable [id number] IMPRESSION: 1. A left internal jugular central venous catheter is present, with its tip overlying the region of the right atrium. 2. An endotracheal tube is present, terminating above the bart by 2.5 cm. 3. Bilateral pulmonary opacities are again noted with the right-sided opacities showing interval improvement. Radiation Dose CTDIVOL = (mGy): DLP = (mGy-cm)
--- NOTE | 2021-02-04 19:00 | PM.CONSULT ---
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 In the emergency department the patient was hypoxic with an oxygen saturation in the 30s, she was hypotensive. Chest x-ray revealed diffuse bilateral infiltrate. She tested positive for COVID-19. Her symptoms started last which has been progressively getting worse. The patient was found to have blood sugar in the 300s, she was hypotensive received 2 L normal saline bolus and started on peripheral Levophed. Her mental status improved after fluid boluses. Eventually, the patient was saturating in the 90s on BiPAP 100%. This morning, her oxygen saturation was in the 70s. She received IV Lasix with subsequent improvement in her oxygen saturation. However, the patient continued to have frequent desaturation in the 70s with 100% oxygen. Her inflammatory markers are elevated with a CRP more than 120. I had a conversation with her and with the patient and we decided to proceed with intubation and lung protective mechanical ventilation. The patient received a dose of Actemra today. The patient was intubated later today. She also received a left internal jugular vein central line. Review of Systems Narrative: Unable to assess because of clinical condition Meds/Allergies Home Medications and Allergies Home Medications Medication Instructions Recorded Confirmed Last Taken Type albuterol sulfate [ProAir HFA] 2 puff INHALATION QID PRN 02/04/21 02/04/21 Unknown History amlodipine 5 mg PO DAILY 02/04/21 02/04/21 Unknown History aspirin [Aspir-81] 81 mg PO DAILY 02/04/21 02/04/21 Unknown History cetirizine [Zyrtec] 10 mg PO DAILY 02/04/21 02/04/21 Unknown History ertugliflozin [Steglatro] 15 mg PO QAM 02/04/21 02/04/21 Unknown History fluticasone propionate [Flonase] 1 spray INTRANASAL EVERY OTHER DAY 02/04/21 02/04/21 Unknown History PRN gabapentin See Rx Instructions .ROUTE .COMPLEX 02/04/21 02/04/21 Unknown History insulin glargine U-300 conc 75 unit SUBCUT BID 02/04/21 02/04/21 Unknown History [Shreya Max U-300 SoloStar] insulin lispro [Admelog SoloStar 20 unit SUBCUT TID 02/04/21 02/04/21 Unknown History U-100 Insulin] lisinopril 40 mg PO DAILY 02/04/21 02/04/21 Unknown History melatonin 5 mg PO BEDTIME PRN 02/04/21 02/04/21 Unknown History metformin 500 mg PO BID 02/04/21 02/04/21 Unknown History metoprolol succinate 100 mg PO DAILY 02/04/21 02/04/21 Unknown History montelukast [Singulair] 10 mg PO DAILY 02/04/21 02/04/21 Unknown History nystatin [Nystop] 1 applic TOPICAL TID PRN 02/04/21 02/04/21 Unknown History ondansetron HCl [Zofran] 4 mg PO Q6H PRN 02/04/21 02/04/21 Unknown History oxycodone 5 mg PO Q6H PRN MDD 4 TABS 02/04/21 02/04/21 Unknown History potassium chloride 20 meq PO BID 02/04/21 02/04/21 Unknown History sertraline [Zoloft] 75 mg PO DAILY 02/04/21 02/04/21 Unknown History sumatriptan succinate 6 mg SUBCUT DAILY PRN 02/04/21 02/04/21 Unknown History tizanidine 4 mg PO Q8H 02/04/21 02/04/21 Unknown History topiramate 50 mg PO BID 02/04/21 02/04/21 Unknown History trazodone 200 mg PO BEDTIME 02/04/21 02/04/21 Unknown History Allergies Allergy/AdvReac Type Severity Reaction Status Date / Time buspirone [From BuSpar] Allergy ADR-Agitate Verified 02/04/21 03:20 d codeine Allergy ADR-Muscle Verified 02/04/21 03:20 Pain prochlorperazine Allergy ADR-Agitate Verified 02/04/21 03:20 [From Compazine] d Current Medications Current Medications Generic Name Dose Route Start Last Admin Trade Name Freq PRN Reason Stop Dose Admin Famotidine 20 mg 02/04/21 08:00 02/04/21 08:35 Famotidine 20 Mg/2 Ml Inj IVP 20 mg Q12H HERSON Administration Norepinephrine Bitartrate 4 mg 254 mls @ 0 mls/hr 02/04/21 03:45 02/04/21 13:29 / Dextrose IV 8 mcg/min .Q0M HERSON 30.48 mls/hr Administration Protocol Per Protocol Azithromycin 500 mg/ Sodium 250 mls @ 250 mls/hr 02/04/21 08:00 02/04/21 18:54 Chloride IV Infused Q24H HERSON Infusion Protocol Piperacillin Sod/Tazobactam 50 mls @ 12.5 mls/hr 02/04/21 09:00 02/04/21 17:38 Sod 3.375 gm/ Sodium Chloride IV 12.5 mls/hr Q8H HERSON Administration Protocol Insulin Human Regular 250 unit 252.5 mls @ 0 mls/hr 02/04/21 10:45 02/04/21 18:21 / Sodium Chloride IV 4.02 unit/hr .Q0M HERSON 4.06 mls/hr Titration Protocol Per Protocol Propofol 1,000 mg in 100 mls @ 0 mls/hr 02/04/21 11:00 02/04/21 11:49 Diprivan IV 15 mcg/kg/min .Q0M HERSON 9.19 mls/hr Administration Protocol Per Protocol Fentanyl 1,000 mcg/ Sodium 100 mls @ 0 mls/hr 02/04/21 11:00 02/04/21 18:59 Chloride IV 175 mcg/hr .Q0M HERSON 17.5 mls/hr Titration Protocol Per Protocol Cisatracurium Besylate 100 mg/ 100 mls @ 0 mls/hr 02/04/21 14:45 02/04/21 16:10 Sodium Chloride IV 1 mcg/kg/min .Q0M HERSON 6.12 mls/hr Administration Protocol Per Protocol Insulin Human Lispro 0 unit 02/04/21 08:00 02/04/21 17:37 Insulin Lispro 100 Unit/1 Ml SUBCUT Not Given WM&BEDTIME [facility] Protocol Vitals/I&O/Wt Last Vital Signs Temp 98.9 F 02/04/21 18:00 Pulse 68 02/04/21 18:00 Resp 20 H 02/04/21 18:00 BP 121/84 02/04/21 18:00 Pulse Ox 92 02/04/21 18:00 02/04/21 02/04/21 02/04/21 06:59 14:59 22:59 Intake Total 1648.265 / 1648.265 216.829 / 735.253 6863.75 / 1300.579 Output Total 1400 / 1400 2200 / 2200 400 / 2600 Balance 248.265 / 248.265 -1982.171 / -1982.171 683.75 / -1299.421 Weight last 48 hrs Weight 225 lb Weight 225 lb Physical Exam Narrative: EXAM NARRATIVE: General: The patient was intubated and sedated Neck: Unable to assess jugular venous distention Respiratory: Auscultation: Reduced breath sound bilaterally, crackles at bilateral lung bases Cardiovascular: Regular rate and rhythm, S1-S2 present, no murmur, bilateral peripheral edema. Abdomen: Soft, distended from obesity, positive bowel sound Musculoskeletal: No obvious joint deformity Skin: No rash Neuro: Patient is intubated and sedated Urinary Catheter Management^: Yo: Cath Placed During This Visit: yes Reason for Continuing Indwelling Catheter: Accurate Measurement of Urinary Output in Critically Ill Patients Urinary Catheter Date of Insertion: 02/04/21 Urinary Catheter Time of Insertion: 03:15 Data Micro: Micro: Microbiology 02/04/21 03:50 Blood Culture - Pr eliminary Blood SPECIMEN [facility] 02/04/21 03:35 Blood Culture - Pr eliminary Blood SPECIMEN [facility] Other Data: Attestation for Other Data: I personally reviewed and interpreted the following: Other data: I have reviewed her laboratory, [place] and radiologic data. The patient has mild metabolic acidosis. The blood sugar is getting better. The procalcitonin level was normal. A&P Assessment and plan (1) Acute respiratory distress syndrome (ARDS) due to 2019 novel coronavirus: This is a 50-year-old lady with a past history of diabetes mellitus, hypertension, obstructive sleep apnea who presented to the hospital with severe COVID-19. The patient has ARDS. She underwent intubation for mechanical ventilation. The PF ratio is 73. The patient is currently receiving remdesivir, dexamethasone and she received a dose of Actemra today. The patient is going to undergo paralysis and prone positioning. For the time being, we will continue with Zosyn and azithromycin. There is no significant evidence of a secondary bacterial infection at this point. Status: Acute (2) Diabetic ketoacidosis: The patient is currently on an insulin drip. Her bicarb level is getting better. We will continue the insulin drip. Status: Acute (3) Shock: This is likely multifactorial. The patient was likely dehydrated, septic when she came in. Currently there is likely contribution from vasodilation in the setting of sedation. We will continue with Levophed. The patient will need close monitoring of input and output. Status: Acute Coding Level of Care Code Acute Processing Manager for [facility] Diagnoses Acute respiratory distress syndrome (ARDS) due to 2019 novel coronavirus U07.1; J80 Diabetic ketoacidosis E11.10 Shock R57.9 Time Spent (min) 47
[2021-02-04] MEDS: tocilizumab 800 MG in sodium chloride 0.9% (100 ml) 100 ML 100 MG IV (19:11)
--- NOTE | 2021-02-04 19:14 | PM.PN ---
Subjective Subjective: Interval history: Patient was seen this morning, she is currently on 100% FiO2, 50 L, she was taken off BiPAP so I can speak to her, she tells me that she is originally from [place], she moved to [place], she actually drove with her and 2 dogs to [place], she started to feel unwell on , with fatigue, malaise, shortness of breath and cough, denies a history of CVA, no history of CAD, does report a history of bilateral extremity edema, she does report a history of type 2 diabetes mellitus, is on high doses of Toujeo 75 units twice daily, with insulin 20 units 3 times daily, tells me that is not unusual for her for her blood sugars to be in the high 500s, denies a history of DKA, -I discussed patient's CODE STATUS in detail, nurse Chloé Araujo respiratory therapist present, she is agreeable for intubation if absolutely necessary, agreeable for elective intubation if absolutely necessary, she is agreeable for CPR, she is agreeable for central line placement, discussed risk and benefits of all options, she voiced understanding, all questions answered, agreed to proceed Vitals/I&O/Wt Last Vital Signs Temp 98.9 F 02/04/21 18:00 Pulse 68 02/04/21 18:00 Resp 20 H 02/04/21 18:00 BP 121/84 02/04/21 18:00 Pulse Ox 92 02/04/21 18:00 02/04/21 02/04/21 02/04/21 06:59 14:59 22:59 Intake Total 1648.265 / 1648.265 216.829 / 789.827 1960.75 / 1300.579 Output Total 1400 / 1400 2200 / 2200 400 / 2600 Balance 248.265 / 248.265 -1983.171 / -1983.171 683.75 / -1299.421 Weight last 48 hrs Weight 102.058 kg Weight 102.058 kg Physical Exam Const: COMMON NORMALS: no acute distress and patient oriented x3 Resp: COMMON NORMALS: normal respiratory effort, No retractions and No use of accessory muscles EFFORT & INSPECTION: Yes audible wheezes Cardio: COMMON NORMALS: regular rate, regular rhythm, S1 normal heart sound present and S2 normal heart sound present RATE: regular rate RHYTHM: regular rhythm HEART SOUNDS: S1 normal heart sound present and S2 normal heart sound present GI: COMMON NORMALS: Normal to inspection, nondistended, normoactive bowel sounds present, Soft to palpation and non-tender PALPATION: Yes Soft to palpation Extremity: COMMON NORMALS: no pedal edema Neuro: COMMON NORMALS: patient oriented x3 Urinary Catheter Management^: Yo: Cath Placed During This Visit: yes Reason for Continuing Indwelling Catheter: Accurate Measurement of Urinary Output in Critically Ill Patients Urinary Catheter Date of Insertion: 02/04/21 Urinary Catheter Time of Insertion: 03:15 Data : 02/04/21 02:50 02/04/21 09:13 Micro: Microbiology 02/04/21 03:50 Blood Culture - Preliminary Blood SPECIMEN COLLECTED 02/04/21 03:35 Blood Culture - Preliminary Blood SPECIMEN COLLECTED A&P Assessment and plan (1) Acute respiratory failure with hypoxia: -Secondary to COVID-19 pneumonia, acute respiratory distress syndrome, possible secondary bacterial pneumonia -Continue BiPAP therapy -Continue remdesivir -Status post 1 dose Actemra -Continue Decadron -Continue broad-spectrum antibiotic therapy for secondary bacterial pneumonia prophylaxis, vancomycin, Zosyn, Levaquin -Sputum cultures, blood cultures, urine bacterial antigens -Incentive spirometer, flutter valve -Vitamin C, zinc, vitamin D - monitor respiratory status closely -High risk of intubation mechanical ventilation in the next 24 hours -CT angiogram could not be performed given respiratory failure, did drive from [place] to [place], no calf pain, no calf swelling, no hemoptysis, but does carry risks of pulmonary embolism -Currently in septic shock, continue Levophed, PICC line to be placed, maintain MAP greater than 65 -Continue therapeutic Lovenox -Bilateral lower extremity ultrasound to evaluate for DVT, if negative, will switch to Lovenox 40 twice daily -Consult pulmonary critical care -Full code Status: Acute (2) Severe sepsis with septic shock: Status: Acute (3) Pneumonia due to COVID-19 virus: Status: Acute (4) Lactic acidosis: As above Status: Acute (5) Acute kidney injury: As above Status: Acute (6) Diabetes: Will use NPH with Solu-Medrol and will cover her with insulin sliding scale. We will adjust the doses depending on glycemia level Status: Acute (7) Acute metabolic encephalopathy due to hypoglycemia: Resolving. Status: Acute (8) Acute respiratory distress syndrome: Status: Acute (9) Diabetic ketoacidosis: Status: Acute (10) Acute respiratory distress syndrome (ARDS) due to 2019 novel coronavirus: Status: Acute (11) Shock: Status: Acute Additional A&P Information 50 year old female with past medical history of morbid obesity, diabetes, unvaccinated for COVID-19 who was brought to emergency room due to altered mental status. The patient was found to have severe hypoxia. Oxygen saturation at 30s on presentation. Testing in the emergency room revealed bilateral severe pneumonia probably due to COVID-19. The patient is also in severe septic shock with acute metabolic, lactic acidosis. CODE STATUS. Full code. DVT prophylaxis. Lovenox full dose. GI prophylaxis. Famotidine. Attestations Medical Necessity Statement*: Patient requires hospitalization, inpatient, greater than 2 midnights, for acute hypoxic respiratory failure, acute respiratory distress syndrome, septic shock, secondary to COVID-19 pneumonia Coding Level of Care Code Acute Legal Recovery Specialist for [facility] Diagnoses Acute respiratory failure with hypoxia J96.01 Severe sepsis with septic shock A41.9; R65.21 Pneumonia due to COVID-19 virus U07.1; J12.82 Lactic acidosis E87.2 Acute kidney injury N17.9 Diabetes E11.9 Acute metabolic encephalopathy due to hypoglycemia G93.41; E16.2 Acute respiratory distress syndrome J80 Diabetic ketoacidosis E11.10 Acute respiratory distress syndrome (ARDS) due to 2019 novel coronavirus U07.1; J80 Shock R57.9
--- NOTE | 2021-02-04 19:16 | P.PCN_ITS ---
Procedure/Consent Time out: Time Out Performed: Yes Consent: Consent for Procedure: Consent obtained from patient Procedure Narrative: Name of the Procedure: Left Internal Jugular Central venous catheter placement under ultrasound guidance. Indication: Access for vasopressor. Anesthesiia: Lidocaine 1%, 5 ml Description of the procedure: The left IJ vein was identified with the Ultrasound from collapsibility and lack of pulsatility. The site was prepared using sterile technique. The skin and subcuteneous tissue was anesthetized using lidocaine. The introducer needle was advanced under US guidance till flash back was noted. Dark, non pulsatile blood noted. Using seldinger technique the CVC was put in.Blood return was noted in all ports. Catheter was secured with suture and covered with transparent d ressing. Complications: None X-ray: Central line tip was in the right atrium. Acute Procedures Epistaxis Control: Time out performed: Yes
[2021-02-04] MEDS: enoxaparin 40 mg/0.4 mL Syringe SUBCUT (19:48)
[2021-02-04] MEDS: propofol 1,000 MG/100 ML INJ 27.56 MG IV (21:54)
[2021-02-04 23:16] LABS: Glucose Point of Care 149 mg/dL (70-110)
[2021-02-04 23:31] LABS: Blood Urea Nitrogen 24 mg/dL (6-20); Carbon Dioxide 25 mmol/L (22-29); Chloride 103 mmol/L (98-107); Glucose 169 mg/dL (65-115); Magnesium 2.2 mg/dL (1.7-2.3); Osmolality Calculated 306 mOsm/kg (285-295); Phosphorus 2.4 mg/dL (2.5-4.5); Sodium 144 mmol/L (136-145)
[2021-02-04 23:33] LABS: Anion Gap 19.3 (5-19); Potassium 3.3 mmol/L (3.5-5.1)
[2021-02-05] VITALS (56 sets, daily range): BP systolic 100–124; BP diastolic 58–75; PULSE 50–63; RESP 20; TEMP 36.4–36.7; O2SAT 94–100; BMI 39.8
[2021-02-05] MEDS: piperacillin-tazobactam 3.375 GM in sodium chloride 0.9% (plus) 50 ML IV ×3 (00:20→17:11)
[2021-02-05 00:36] LABS: Glucose Point of Care 163 mg/dL (70-110)
[2021-02-05 00:36] LABS: Glucose Point of Care 199 mg/dL (70-110)
[2021-02-05 00:36] LABS: Glucose Point of Care 138 mg/dL (70-110)
[2021-02-05 00:36] LABS: Glucose Point of Care 147 mg/dL (70-110)
[2021-02-05 00:36] LABS: Glucose Point of Care 198 mg/dL (70-110)
[2021-02-05] MEDS: propofol 1,000 MG/100 ML INJ 27.56 MG IV ×7 (01:13→23:00)
[2021-02-05 04:32] LABS: ABG PCO2 42.4 mmHg (35-45); ABG PH Result 7.41 (7.35-7.45); Arterial Blood Gas Hematocrit 44.7 % (37-47); Base Excess ABG 2.2 mmol/L (-2.0-2.0); Blood Gas Allen Test Pos; Blood Gas Sample Site Radial, right; Blood Gas Sample Type Arterial; Blood Gas Tidal Volume 0.38; HCO3 ABG 27.1 mmol/L (22-26); Oxygen Device VENT
[2021-02-05] MEDS: remdesivir 100 MG in sodium chloride 0.9% (100 ml) 100 ML IV (05:24)
[2021-02-05 05:26] LABS: Basophils % 0.4 %; Hematocrit 42.7 % (37.0-47.0); Hemoglobin 14.1 g/dL (11.5-15.3); Lymphocytes # 1.3 10^3/uL (0.8-4.8); Mean Corpuscular Hemoglobin 30.5 pg (28.0-34.0); Mean Corpuscular Volume 92.2 fl (81-99); Mean Platelet Volume 11.2 fL (7.4-10.4); Monocytes # 0.4 10^3/uL (0.2-0.9); Monocytes % 4.6 %; Neutrophils # 6.53 10^3/uL (1.8-7.7); Neutrophils % 77.9 %; Nucleated Red Blood Cells % 0.5 %; Platelet Count 339 10^3/cmm (130-400); Red Blood Count 4.63 10^6/uL (4.1-5.3); White Blood Count 8.4 10^3/uL (4.0-10.0)
[2021-02-05 06:00] LABS: Alanine Aminotransferase 25 U/L (0-33); Albumin Level 2.8 g/dL (3.5-5.2); Alkaline Phosphatase 76 IU/L (35-105); Aspartate Amino Transferase 40 U/L (0-32); Blood Urea Nitrogen 21 mg/dL (6-20); C Reactive Protein 97.6 mg/L (0.0-4.9); Calcium 8.2 mg/dL (8.5-10.5); Carbon Dioxide 24 mmol/L (22-29); Chloride 103 mmol/L (98-107); Globulin 3.6 g/dL (1.3-4.6); Glomerular Filtration Rate 75.6 mL/min (90-130); Glucose 145 mg/dL (65-115); Magnesium 2.4 mg/dL (1.7-2.3); Osmolality Calculated 304 mOsm/kg (285-295); Phosphorus 2.4 mg/dL (2.5-4.5); Sodium 144 mmol/L (136-145); Total Bilirubin 0.3 mg/dL (0.15-1.2); Total Protein 6.4 g/dL (6.6-8.7)
[2021-02-05] MEDS: enoxaparin 40 mg/0.4 mL Syringe SUBCUT ×2 (06:05→18:15)
[2021-02-05 06:06] LABS: INR 1.04 (0.8-1.2)
[2021-02-05] MEDS: dexamethasone 10 mg/mL INJ 6 MG IVP (06:06)
[2021-02-05 06:07] LABS: Anion Gap 20.1 (5-19); D Dimer 1.48 ug/mIFEU (0-0.59); Potassium 3.1 mmol/L (3.5-5.1)
[2021-02-05 06:08] LABS: NT Pro B Type Natriuretic Pept 945 pg/mL (0-125); Procalcitonin 0.74 ng/mL (0-0.5)
[2021-02-05 06:11] LABS: Glucose Point of Care 141 mg/dL (70-110)
[2021-02-05 06:11] LABS: Glucose Point of Care 137 mg/dL (70-110)
[2021-02-05 06:11] LABS: Glucose Point of Care 141 mg/dL (70-110)
[2021-02-05 06:11] LABS: Glucose Point of Care 154 mg/dL (70-110)
[2021-02-05 06:11] LABS: Glucose Point of Care 133 mg/dL (70-110)
[2021-02-05 06:11] LABS: Glucose Point of Care 129 mg/dL (70-110)
--- NOTE | 2021-02-05 06:19 | PC.NURSE ---
TOF 2200 - 4 0000 - 3 0200 - 3 0400 - 2 0600 - 2
[2021-02-05 06:22] LABS: Creatine Phosphokinase 114 U/L (26-192)
--- NOTE | 2021-02-05 07:00 | XRR_ITS ---
PROCEDURE INFORMATION: Exam: XR Chest Exam date and time: 02/05/2021 7:00 AM Age: 50 years old Clinical indication: Shortness of breath; Additional info: SOB TECHNIQUE: Imaging protocol: XR of the chest. Views: 1 view. COMPARISON: CR (CHEST, ) 02/04/2021 6:29 PM FINDINGS: Tubes, catheters and devices: The ETT and left IJ central venous catheter appear stable in position. A naso/orogastric tube is again noted; however, a 2nd naso/orogastric tube marker is also seen in the neck and chest region which may be an additional tube or possibly the previously seen tube traveling cranially in the esophagus. Lungs: The right lung opacities have mildly improved. The left lung opacities are grossly unchanged, which may be related to pulmonary edema. Pleural spaces: Unremarkable. No pleural effusion. No pneumothorax. Heart: The heart is normal in size. Bones/joints: Unremarkable. XR/XR chest 1V portable [id number] IMPRESSION: 1. Slight improvement of the right lung opacities. Otherwise, no significant change in the lung findings. 2. Stable ETT and left IJ central venous catheter. A 2nd naso/orogastric tube versus malpositioned previously seen tube (see above). Correlate clinically and consider abdominal radiographs for further assessment. Radiation Dose CTDIVOL = (mGy): DLP = (mGy-cm)
[2021-02-05 07:35] LABS: Glucose Point of Care 146 mg/dL (70-110)
[2021-02-05] MEDS: famotidine 20 mg/2 mL INJ IVP ×2 (08:24→19:31)
[2021-02-05] MEDS: azithromycin 500 MG in sodium chloride 0.9% 250 ML 250 MG IV (08:24)
[2021-02-05 08:56] LABS: Glucose Point of Care 152 mg/dL (70-110)
[2021-02-05 09:22] LABS: Glucose Point of Care 135 mg/dL (70-110)
[2021-02-05 10:10] LABS: Glucose Point of Care 146 mg/dL (70-110)
--- NOTE | 2021-02-05 12:07 | PC.NURSE ---
Continuous glucose monitor was removed from patients left upper arm.
[2021-02-05 12:17] LABS: Glucose Point of Care 152 mg/dL (70-110)
[2021-02-05] MEDS: cisatracurium 100 MG in sodium chloride 0.9% 50 ML 6.12 MG IV (13:00)
--- NOTE | 2021-02-05 14:28 | P.PN_ITS ---
Subjective Subjective: Interval history: Yesterday afternoon, patient had episodes of significant hypoxia on BiPAP, was intubated placed on mechanical ventilation, by anesthesia and pulmonary critical care team, overnight she was prone and paralyzed, This morning she was examined, she is prone, paralyzed, remains on Levophed, insulin drip, Versed and propofol for sedation, Vitals/I&O/Wt Last Vital Signs Temp 97.6 F 02/05/21 09:30 Pulse 60 02/05/21 12:00 Resp 20 H 02/05/21 13:50 BP 105/66 02/05/21 12:00 Pulse Ox 98 02/05/21 13:50 02/04/21 02/05/21 02/05/21 22:59 06:59 14:59 Intake Total 1732.866 / 1949.695 598.381 / 2548.076 733.633 / 733.633 Output Total 400 / 2600 1200 / 3800 Balance 1332.866 / -650.305 -601.619 / -1251.924 733.633 / 733.633 Weight last 48 hrs Weight 102.058 kg Weight 102.058 kg Weight 102.058 kg Physical Exam Narrative: EXAM NARRATIVE: Intubated, sedated, mechanically ventilated, on paralytics Resp: COMMON NORMALS: normal respiratory effort, No retractions, No use of accessory muscles and clear to auscultation bilaterally AUSCULTATION: clear to auscultation bilaterally Cardio: COMMON NORMALS: regular rate, regular rhythm, S1 normal heart sound present and S2 normal heart sound present RATE: regular rate RHYTHM: regular rhythm HEART SOUNDS: S1 normal heart sound present and S2 normal heart sound present GI: COMMON NORMALS: Normal to inspection, nondistended, normoactive bowel sounds present, Soft to palpation and non-tender PALPATION: Yes Soft to palpation OTHER: Morbidly obese Extremity: COMMON NORMALS: no pedal edema Urinary Catheter Management^: Yo: Cath Placed During This Visit: yes Reason for Continuing Indwelling Catheter: Accurate Measurement of Urinary Output in Critically Ill Patients Urinary Catheter Date of Insertion: 02/04/21 Urinary Catheter Time of Insertion: 03:15 Data : 02/05/21 04:20 02/05/21 04:20 Micro: Microbiology 02/04/21 18:30 Gram Stain - Final Sputum - Endotracheal Tube Aspirate 02/04/21 03:50 Blood Culture - Preliminary Blood NEGATIVE TO DATE 02/04/21 03:35 Blood Culture - Preliminary Blood NEGATIVE TO DATE A&P Assessment and plan (1) Acute respiratory failure with hypoxia: -Secondary to COVID-19 pneumonia, acute respiratory distress syndrome, possible secondary bacterial pneumonia -With septic shock -With hyperglycemia/DKA Plan: -Continue intubation, mechanical ventilation -ABG pH 7.41, PCO2 42.4, PO2 194, bicarb 27.1, on 75%, tidal volume 380, PEEP of 14 -Currently prone, paralyzed Nimbex 16 hours -Currently Levophed, central line placed, maintain MAP ~65 -Continue insulin drip, goal 1 40-1 80 -Supine, start trickle tube feedings -Propofol fentanyl for sedation -Continue remdesivir -Status post 1 dose Actemra -Continue Decadron -Continue broad-spectrum antibiotic therapy for secondary bacterial pneumonia prophylaxis, Zosyn, azithromycin -Sputum cultures, blood cultures, urine bacterial antigens -Incentive spirometer, flutter valve -Vitamin C, zinc, vitamin D - monitor respiratory status closely -Replace electrolytes, potassium, magnesium, phosphorus -Central line in place -Lovenox 40 mg twice daily -Pepcid for GI prophylaxis -Chlorhexidine vap prophylaxis -Consult pulmonary critical care -Full code Status: Acute (2) Severe sepsis with septic shock: Status: Acute (3) Pneumonia due to COVID-19 virus: Status: Acute (4) Lactic acidosis: As above Status: Acute (5) Acute kidney injury: As above Status: Acute (6) Diabetes: Will use NPH with Solu-Medrol and will cover her with insulin sliding scale. We will adjust the doses depending on glycemia level Status: Acute (7) Acute metabolic encephalopathy due to hypoglycemia: Resolving. Status: Acute (8) Acute respiratory distress syndrome: Status: Acute (9) Diabetic ketoacidosis: Status: Acute (10) Acute respiratory distress syndrome (ARDS) due to 2019 novel coronavirus: Status: Acute (11) Shock: Status: Acute Additional A&P Information is. CODE STATUS. Full code. DVT prophylaxis. Lovenox full dose. GI prophylaxis. Famotidine. Attestations Medical Necessity Statement*: Patient course hospitalization for acute respiratory failure secondary to COVID-19 pneumonia Coding Level of Care Code Acute [employer] [facility] for [facility] Diagnoses Acute respiratory failure with hypoxia J96.01 Severe sepsis with septic shock A41.9; R65.21 Pneumonia due to COVID-19 virus U07.1; J12.82 Lactic acidosis E87.2 Acute kidney injury N17.9 Diabetes E11.9 Acute metabolic encephalopathy due to hypoglycemia G93.41; E16.2 Acute respiratory distress syndrome J80 Diabetic ketoacidosis E11.10 Acute respiratory distress syndrome (ARDS) due to 2019 novel coronavirus U07.1; J80 Shock R57.9
--- NOTE | 2021-02-05 15:30 | PM.PN ---
Subjective Subjective: Interval history: The patient was seen and examined. She was intubated, sedated, paralyzed in prone position. Her oxygen requirement had come to 45% in prone position. Her urine output has remained good. The patient is approximately 1.5 L fluid positive in the past 24 hours. Her potassium was 3.1 and she received potassium IV. Medications: Reviewed: Yes Vitals/I&O/Wt Last Vital Signs Temp 97.6 F 02/05/21 09:30 Pulse 57 L 02/05/21 14:00 Resp 20 H 02/05/21 13:50 BP 101/58 02/05/21 14:30 Pulse Ox 98 02/05/21 14:00 02/05/21 02/05/21 02/05/21 06:59 14:59 22:59 Intake Total 598.381 / 2548.076 733.633 / 733.633 Output Total 1200 / 3800 Balance -601.619 / -1251.924 733.633 / 733.633 Weight last 48 hrs Weight 225 lb Weight 225 lb Weight 225 lb Physical Exam Narrative: EXAM NARRATIVE: General: The patient was intubated, sedated, paralyzed and in prone position Neck: Unable to assess jugular venous distention Respiratory: Auscultation: Reduced breath sound bilaterally posteriorly, minimal crackles Cardiovascular: Regular rate and rhythm, S1-S2 present, no murmur, bilateral peripheral edema. Abdomen: Positive bowel sounds Musculoskeletal: No obvious joint deformity Skin: No rash Neuro: Patient is intubated and sedated Urinary Catheter Management^: Yo: Cath Placed During This Visit: yes Reason for Continuing Indwelling Catheter: Accurate Measurement of Urinary Output in Critically Ill Patients Urinary Catheter Date of Insertion: 02/04/21 Urinary Catheter Time of Insertion: 03:15 Data : 02/05/21 04:20 02/05/21 04:20 Micro: Microbiology 02/04/21 18:30 Gram Stain - Final Sputum - Endotracheal Tube Aspirate 02/04/21 03:50 Blood Culture - Preliminary Blood NEGATIVE TO DATE 02/04/21 03:35 Blood Culture - Preliminary Blood NEGATIVE TO DATE Attestation for Other Data: I personally reviewed and interpreted the following: Other data: I have reviewed the patient's laboratory, microbiologic and radiologic data. No leukocytosis. Mild hypokalemia. Acidosis has essentially resolved. Blood sugar is much better controlled. A&P Assessment and plan (1) Acute respiratory distress syndrome (ARDS) due to 2019 novel coronavirus: This is a 50-year-old lady with a past history of diabetes mellitus, hypertension, obstructive sleep apnea who is in ARDS secondary to SARS-CoV-2 pneumonia. Her oxygenation has improved significantly with prone positioning. The patient was on 45% FiO2. The patient is currently receiving remdesivir, dexamethasone and she received a dose of Actemra on January 04. If the patient does not require more than 60% FiO2 after she is supine we would not need to continue with prone positioning. In that case, we will get rid of the Versed as soon as possible. However, if the patient requires more than 60% we will proceed with 1 more session of prone positioning. The patient is empirically covered with Zosyn and azithromycin. The patient is going to receive 40 mg of IV Lasix one-time. We will replete electrolytes. Status: Acute (2) Diabetic ketoacidosis: This is resolved completely. The bicarb level is normal. The patient is on minimal dose of IV insulin with good blood sugar control. Status: Acute (3) Shock: Shock is resolved. We will continue the supportive therapy for the time being. Status: Acute Attestations Medical Necessity Statement*: Will defer to the primary team Coding Level of Care Code Acute Substance Abuse Nurse for [facility] Diagnoses Acute respiratory distress syndrome (ARDS) due to 2019 novel coronavirus U07.1; J80 Diabetic ketoacidosis E11.10 Shock R57.9 Time Spent (min) 33
[2021-02-05 16:29] LABS: Glucose Point of Care 136 mg/dL (70-110)
[2021-02-05 16:58] LABS: Anion Gap 21.3 (5-19); Blood Urea Nitrogen 23 mg/dL (6-20); Calcium 8.4 mg/dL (8.5-10.5); Carbon Dioxide 24 mmol/L (22-29); Chloride 103 mmol/L (98-107); Glomerular Filtration Rate 88.2 mL/min (90-130); Glucose 147 mg/dL (65-115); Osmolality Calculated 306 mOsm/kg (285-295); Potassium 3.3 mmol/L (3.5-5.1); Sodium 145 mmol/L (136-145)
[2021-02-05 17:06] LABS: Glucose Point of Care 166 mg/dL (70-110)
[2021-02-05] MEDS: FUROsemide 10 mg/mL SDV 4mL 40 MG IVP (17:10)
[2021-02-05] MEDS: chlorhexidine gluconate 0.12% Btl 473 mL 15 ML MUCOUS MEM (17:11)
[2021-02-05 18:10] LABS: Glucose Point of Care 153 mg/dL (70-110)
--- NOTE | 2021-02-05 18:20 | PC.NURSE ---
Patient was placed in supine position at 1500. Fio2 increased to 65. informed and updated multiple times throughout the shift.
--- NOTE | 2021-02-05 18:22 | PC.NURSE ---
Patients heart rate has been in low 50's to upper 50's. aware. No new orders. Versed titrated down.
--- NOTE | 2021-02-05 18:23 | PC.NURSE ---
Patient had episode of oxygen levels ranging from 68-80 and was coughing. Versed titrated back up and running at 4 even though in MAY it is infused.
[2021-02-05] MEDS: lidocaine 1% 5 ML in potassium chloride premix 100 ML 25 ML IV (18:43)
[2021-02-05 20:17] LABS: Glucose Point of Care 141 mg/dL (70-110)
[2021-02-05 20:58] LABS: Glucose Point of Care 141 mg/dL (70-110)
[2021-02-05 23:09] LABS: Glucose Point of Care 146 mg/dL (70-110)
[2021-02-06] VITALS (54 sets, daily range): BP systolic 98–169; BP diastolic 62–88; PULSE 48–63; RESP 20; TEMP 36.4–37.3; O2SAT 92–100
[2021-02-06 00:12] LABS: Glucose Point of Care 138 mg/dL (70-110)
[2021-02-06] MEDS: piperacillin-tazobactam 3.375 GM in sodium chloride 0.9% (plus) 50 ML IV ×3 (01:14→17:15)
[2021-02-06] MEDS: propofol 1,000 MG/100 ML INJ 24.49 MG IV ×3 (01:18→09:16)
[2021-02-06 01:37] LABS: Glucose Point of Care 126 mg/dL (70-110)
[2021-02-06 02:00] LABS: Glucose Point of Care 137 mg/dL (70-110)
[2021-02-06 02:13] LABS: Glucose Point of Care 131 mg/dL (70-110)
[2021-02-06 03:27] LABS: Glucose Point of Care 135 mg/dL (70-110)
[2021-02-06] MEDS: cisatracurium 100 MG in sodium chloride 0.9% 50 ML 11.02 MG IV (03:35)
[2021-02-06 03:46] LABS: Basophils % 0.4 %; Hematocrit 42.6 % (37.0-47.0); Hemoglobin 14.2 g/dL (11.5-15.3); Lymphocytes % 13.2 %; Mean Corpuscular HGB Conc 33.3 g/dL (30.0-36.0); Mean Corpuscular Hemoglobin 31.3 pg (28.0-34.0); Mean Corpuscular Volume 93.8 fl (81-99); Monocytes # 0.4 10^3/uL (0.2-0.9); Monocytes % 5.2 %; Neutrophils # 5.78 10^3/uL (1.8-7.7); Neutrophils % 77.1 %; Nucleated Red Blood Cells % 0.4 %; Platelet Count 320 10^3/cmm (130-400); Red Blood Count 4.54 10^6/uL (4.1-5.3); Red Cell Distribution Width 14.2 % (12.1-15.1); White Blood Count 7.5 10^3/uL (4.0-10.0)
[2021-02-06 04:01] LABS: Lactate (Lactic Acid level) 1.2 mmol/L (0.5-2.2)
[2021-02-06 04:12] LABS: Alanine Aminotransferase 17 U/L (0-33); Albumin Level 2.7 g/dL (3.5-5.2); Alkaline Phosphatase 76 IU/L (35-105); Aspartate Amino Transferase 40 U/L (0-32); Blood Urea Nitrogen 27 mg/dL (6-20); C Reactive Protein 47.6 mg/L (0.0-4.9); Calcium 8.4 mg/dL (8.5-10.5); Carbon Dioxide 27 mmol/L (22-29); Chloride 107 mmol/L (98-107); Globulin 3.3 g/dL (1.3-4.6); Glomerular Filtration Rate 88.2 mL/min (90-130); Glucose 140 mg/dL (65-115); Osmolality Calculated 317 mOsm/kg (285-295); Phosphorus 2.9 mg/dL (2.5-4.5); Sodium 150 mmol/L (136-145); Total Bilirubin 0.3 mg/dL (0.15-1.2)
[2021-02-06 04:12] LABS: Glucose Point of Care 139 mg/dL (70-110)
[2021-02-06 04:17] LABS: NT Pro B Type Natriuretic Pept 307 pg/mL (0-125); Procalcitonin 0.38 ng/mL (0-0.5)
[2021-02-06 04:21] LABS: INR 0.98 (0.8-1.2)
[2021-02-06 04:23] LABS: D Dimer 1.87 ug/mIFEU (0-0.59)
[2021-02-06 04:54] LABS: Anion Gap 19.7 (5-19); Potassium 3.7 mmol/L (3.5-5.1)
[2021-02-06 05:07] LABS: Creatine Phosphokinase 2437 U/L (26-192)
[2021-02-06 05:11] LABS: Glucose Point of Care 145 mg/dL (70-110)
--- NOTE | 2021-02-06 05:31 | PC.NURSE ---
TOF 2100 - 4 2300 - 4 0100 - 3 0200 - 2 0400 - 1 0530 - 2
[2021-02-06] MEDS: sodium chloride 0.9% 1,000 ML 75 ML IV (05:35)
[2021-02-06] MEDS: remdesivir 100 MG in sodium chloride 0.9% (100 ml) 100 ML IV (05:35)
[2021-02-06 05:56] LABS: Glucose Point of Care 150 mg/dL (70-110)
[2021-02-06] MEDS: enoxaparin 40 mg/0.4 mL Syringe SUBCUT ×2 (06:00→08:47)
[2021-02-06] MEDS: dexamethasone 10 mg/mL INJ 6 MG IVP (06:00)
[2021-02-06 07:20] LABS: Glucose Point of Care 147 mg/dL (70-110)
[2021-02-06 08:04] LABS: Glucose Point of Care 126 mg/dL (70-110)
[2021-02-06] MEDS: azithromycin 500 MG in sodium chloride 0.9% 250 ML 250 MG IV (08:47)
[2021-02-06] MEDS: famotidine 20 mg/2 mL INJ IVP ×2 (08:47→23:22)
[2021-02-06] MEDS: chlorhexidine gluconate 0.12% Btl 473 mL 15 ML MUCOUS MEM ×2 (09:16→18:43)
[2021-02-06 09:20] LABS: Glucose Point of Care 135 mg/dL (70-110)
[2021-02-06 11:24] LABS: Glucose Point of Care 157 mg/dL (70-110)
[2021-02-06 11:24] LABS: Glucose Point of Care 165 mg/dL (70-110)
[2021-02-06 11:57] LABS: Alanine Aminotransferase 16 U/L (0-33); Albumin Level 2.7 g/dL (3.5-5.2); Alkaline Phosphatase 69 IU/L (35-105); Anion Gap 15.6 (5-19); Aspartate Amino Transferase 34 U/L (0-32); Blood Urea Nitrogen 27 mg/dL (6-20); Calcium 8.2 mg/dL (8.5-10.5); Carbon Dioxide 27 mmol/L (22-29); Chloride 109 mmol/L (98-107); Glomerular Filtration Rate 105.4 mL/min (90-130); Glucose 162 mg/dL (65-115); Osmolality Calculated 315 mOsm/kg (285-295); Potassium 3.6 mmol/L (3.5-5.1); Sodium 148 mmol/L (136-145); Total Bilirubin 0.2 mg/dL (0.15-1.2); Total Protein 5.7 g/dL (6.6-8.7)
[2021-02-06 12:25] LABS: Glucose Point of Care 160 mg/dL (70-110)
[2021-02-06] MEDS: cisatracurium 100 MG in sodium chloride 0.9% 50 ML 9.19 MG IV (13:35)
[2021-02-06 13:36] LABS: Glucose Point of Care 160 mg/dL (70-110)
[2021-02-06 14:35] LABS: Glucose Point of Care 153 mg/dL (70-110)
[2021-02-06 14:49] LABS: Anion Gap 17.6 (5-19); Blood Urea Nitrogen 27 mg/dL (6-20); Calcium 8.2 mg/dL (8.5-10.5); Carbon Dioxide 26 mmol/L (22-29); Chloride 109 mmol/L (98-107); Glomerular Filtration Rate 105.4 mL/min (90-130); Glucose 161 mg/dL (65-115); Osmolality Calculated 317 mOsm/kg (285-295); Potassium 3.6 mmol/L (3.5-5.1); Sodium 149 mmol/L (136-145); Triglycerides 851 mg/dL (0-150)
[2021-02-06 15:16] LABS: LDL Cholesterol Direct 97 mg/dL (0-100)
[2021-02-06 15:34] LABS: Glucose Point of Care 146 mg/dL (70-110)
[2021-02-06 16:40] LABS: Glucose Point of Care 158 mg/dL (70-110)
--- NOTE | 2021-02-06 16:46 | PM.PN ---
Subjective Subjective: Interval history: Patient was seen this morning, currently prone positioning, overnight her tube feeds were stopped due to increased residuals, she has had a small bowel movement this morning, afebrile overnight, remains off pressors, on 60% FiO2, currently in second session of proning Vitals/I&O/Wt Last Vital Signs Temp 98.2 F 02/06/21 12:00 Pulse 53 L 02/06/21 14:30 Resp 20 H 02/06/21 12:00 BP 121/69 02/06/21 14:30 Pulse Ox 96 02/06/21 14:30 02/06/21 02/06/21 02/06/21 06:59 14:59 22:59 Intake Total 415.39 / 415.39 350 / 765.39 Output Total Balance 415.39 / 415.39 350 / 765.39 Weight last 48 hrs Weight 102.058 kg Physical Exam Narrative: EXAM NARRATIVE: Intubated, sedated, mechanically ventilated, on paralytics Const: COMMON NORMALS: no acute distress Resp: COMMON NORMALS: normal respiratory effort, No retractions, No use of accessory muscles and clear to auscultation bilaterally AUSCULTATION: clear to auscultation bilaterally Cardio: COMMON NORMALS: regular rate, regular rhythm, S1 normal heart sound present and S2 normal heart sound present RATE: regular rate RHYTHM: regular rhythm HEART SOUNDS: S1 normal heart sound present and S2 normal heart sound present GI: COMMON NORMALS: Normal to inspection, nondistended, normoactive bowel sounds present, Soft to palpation and non-tender PALPATION: Yes Soft to palpation OTHER: Morbidly obese Extremity: COMMON NORMALS: no pedal edema Urinary Catheter Management^: Yo: Cath Placed During This Visit: yes Reason for Continuing Indwelling Catheter: Accurate Measurement of Urinary Output in Critically Ill Patients Urinary Catheter Date of Insertion: 02/04/21 Urinary Catheter Time of Insertion: 03:15 Data : 02/06/21 02:41 02/06/21 14:00 Micro: Microbiology 02/04/21 18:30 Gram Stain - Final Sputum - Endotracheal Tube Aspirate Sputum Culture - Preliminary Staphylococcus species A&P Assessment and plan (1) Acute respiratory failure with hypoxia: -Secondary to COVID-19 pneumonia, acute respiratory distress syndrome, possible secondary bacterial pneumonia -With septic shock -With hyperglycemia/DKA Plan: -Continue intubation, mechanical ventilation -Second session of proning -ABG pH 7.41, PO2 124, bicarb 27.1, PCO2 42.4 on 75% FiO2, tidal volume 380, PEEP of 14 -Sodium 149, receiving normal saline -Rhabdomyolysis, CPK 2437, normal saline -Currently prone, paralyzed Nimbex 16 hours -Currently Levophed, central line placed, maintain MAP ~65 -Continue insulin drip, goal 1 40-1 80 -Supine, start trickle tube feedings -Propofol fentanyl for sedation -Continue remdesivir -Status post 1 dose Actemra -Continue Decadron -Continue broad-spectrum antibiotic therapy for secondary bacterial pneumonia prophylaxis, Zosyn, azithromycin -Sputum cultures, blood cultures, urine bacterial antigens -Incentive spirometer, flutter valve -Vitamin C, zinc, vitamin D - monitor respiratory status closely -Replace electrolytes, potassium, magnesium, phosphorus -Central line in place -Lovenox 40 mg twice daily -Pepcid for GI prophylaxis -Chlorhexidine vap prophylaxis -Consult pulmonary critical care -Full code Status: Acute (2) Severe sepsis with septic shock: Status: Acute (3) Pneumonia due to COVID-19 virus: Status: Acute (4) Lactic acidosis: As above Status: Acute (5) Acute kidney injury: As above Status: Acute (6) Diabetes: Will use NPH with Solu-Medrol and will cover her with insulin sliding scale. We will adjust the doses depending on glycemia level Status: Acute (7) Acute metabolic encephalopathy due to hypoglycemia: Resolving. Status: Acute (8) Acute respiratory distress syndrome: Status: Acute (9) Diabetic ketoacidosis: Status: Acute (10) Acute respiratory distress syndrome (ARDS) due to 2019 novel coronavirus: Status: Acute (11) Shock: Status: Acute Additional A&P Information is. CODE STATUS. Full code. DVT prophylaxis. Lovenox GI prophylaxis. Famotidine. 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
--- NOTE | 2021-02-06 17:00 | PC.NURSE ---
Patient was supined at 1630. Tolerated well and Fio2 was titrated down to 45%. updated throughout shift.
--- NOTE | 2021-02-06 17:12 | XRR_ITS ---
PROCEDURE INFORMATION: Exam: XR Chest Exam date and time: 02/06/2021 5:12 PM Age: 50 years old Clinical indication: Shortness of breath; Additional info: Respiratory failure TECHNIQUE: Imaging protocol: XR of the chest. Views: 1 view. Total images: 1 COMPARISON: 1. CR (CHEST, ) 02/04/2021 6:29:12 PM 2. CR (CHEST, ) 02/05/2021 3:32 PM FINDINGS: Tubes, catheters and devices: Endotracheal tube in satisfactory position tip above the bart. Nasogastric tube tip below the diaphragm out of the field of view. Left internal jugular central venous catheter tip atrial caval junction. EKG leads. Lungs: Slight interval improvement diffuse ground-glass interstitial lung disease left lung with suspected subtle consolidation in the left lung base. Bilateral ground-glass interstitial lung disease of presumed active interstitial pneumonitis and/or interstitial edema. Pleural spaces: No visible pleural effusion. No pneumothorax. Heart/Mediastinum: Cardiac structures and configuration with mild cardiomegaly and left ventricular prominence. Arteriosclerosis. Bones/joints: Degenerative disease of the visualized spine. Soft tissues: Heavy body habitus. XR/XR chest 1V portable [id number] IMPRESSION: 1. Slight interval improvement diffuse ground-glass interstitial lung disease left lung with suspected subtle consolidation in the left lung base. 2. Bilateral ground-glass interstitial lung disease of presumed active interstitial pneumonitis and/or interstitial edema. Radiation Dose CTDIVOL = (mGy): DLP = (mGy-cm)
--- NOTE | 2021-02-06 17:13 | P.PN_ITS ---
Subjective Subjective: Interval history: The patient was seen and examined. She is currently in prone position, paralyzed. Yesterday, her oxygen requirement went up after she was supine. Turns out her paralytics were discontinued and the patient was coughing and lost her lung volume. Medications: Reviewed: Yes Vitals/I&O/Wt Last Vital Signs Temp 98.2 F 02/06/21 12:00 Pulse 53 L 02/06/21 14:30 Resp 20 H 02/06/21 12:00 BP 121/69 02/06/21 14:30 Pulse Ox 96 02/06/21 14:30 02/06/21 02/06/21 02/06/21 06:59 14:59 22:59 Intake Total 415.39 / 415.39 350 / 765.39 Output Total Balance 415.39 / 415.39 350 / 765.39 Weight last 48 hrs Weight 225 lb Physical Exam Narrative: EXAM NARRATIVE: General: The patient was intubated, sedated, paralyzed and in prone position Neck: Unable to assess jugular venous distention Respiratory: Auscultation: Reduced breath sound bilaterally posteriorly, minimal crackles Cardiovascular: Regular rate and rhythm, S1-S2 present, no murmur, bilateral peripheral edema. Abdomen: Positive bowel sounds Musculoskeletal: No obvious joint deformity Skin: No rash Neuro: Patient is intubated and sedated Urinary Catheter Management^: Yo: Cath Placed During This Visit: yes Reason for Continuing Indwelling Catheter: Accurate Measurement of Urinary Output in Critically Ill Patients Urinary Catheter Date of Insertion: 02/04/21 Urinary Catheter Time of Insertion: 03:15 Data : 02/06/21 02:41 02/06/21 14:00 Micro: Microbiology 02/04/21 18:30 Gram Stain - Final Sputum - Endotracheal Tube Aspirate Sputum Culture - Preliminary Staphylococcus species Attestation for Other Data: I personally reviewed and interpreted the following: Other data: I have reviewed the patient's laboratory, microbiologic radiologic data. The patient has developed mild hyper natremia. The endotracheal aspirate culture is positive for staph species. A&P Assessment and plan (1) Acute respiratory distress syndrome (ARDS) due to 2019 novel coronavirus: This is a 50-year-old lady with a past history of diabetes mellitus, hypertension, obstructive sleep apnea who is in ARDS secondary to SARS-CoV-2 pneumonia. She is currently on 60% oxygen. We will keep the patient paralyzed when she is supine today. Her triglyceride level is more than 800. We are going to discontinue the propofol and continue with fentanyl and Versed. The patient will need to be proned if the oxygen requirement continues to be more than 60%. The chest x-ray yesterday showed some improvement in the infiltrate in the right lung. I am going to obtain a chest x-ray today. The patient is growing staph from ET tube aspirate. I am going to add linezolid in addition to the Zosyn and discontinue azithromycin. Status: Acute (2) Diabetic ketoacidosis: This is resolved completely. The bicarb level is normal. The patient is on minimal dose of IV insulin with good blood sugar control. Status: Acute (3) Shock: Shock is resolved. We will continue the supportive therapy for the time being. Status: Acute (4) Hyponatremia: We will start the patient on free water flush. Status: Acute Attestations Medical Necessity Statement*: Will defer to the primary team Coding Level of Care Code Acute Dehydrating Press Operator for [facility]nn Diagnoses Acute respiratory distress syndrome (ARDS) due to 2019 novel coronavirus U07.1; J80 Diabetic ketoacidosis E11.10 Shock R57.9 Hyponatremia E87.1 Time Spent (min) 41
[2021-02-06 17:16] LABS: Glucose Point of Care 165 mg/dL (70-110)
[2021-02-06 18:28] LABS: Glucose Point of Care 156 mg/dL (70-110)
[2021-02-06] MEDS: linezolid premix 600 MG/300 ML PREMIX 300 MG IV (18:42)
--- NOTE | 2021-02-06 19:01 | PC.NURSE ---
Shift Note Frequent safety and comfort rounds continue. Orders and/or nursing care completed as indicated. Patient monitored for response to intervention and treatment(s). Education provided includes ventilator compliance. understood.
[2021-02-06 20:21] LABS: Glucose Point of Care 193 mg/dL (70-110)
[2021-02-06 21:20] LABS: Glucose Point of Care 159 mg/dL (70-110)
[2021-02-06 23:03] LABS: Glucose Point of Care 168 mg/dL (70-110)
[2021-02-06 23:35] LABS: Glucose Point of Care 174 mg/dL (70-110)
[2021-02-07] VITALS (62 sets, daily range): BP systolic 119–158; BP diastolic 66–88; PULSE 47–82; RESP 18–20; TEMP 36.7–36.9; O2SAT 81–98; BMI 45.7
[2021-02-07 00:18] LABS: Glucose Point of Care 136 mg/dL (70-110)
[2021-02-07] MEDS: piperacillin-tazobactam 3.375 GM in sodium chloride 0.9% (plus) 50 ML IV ×2 (02:06→08:05)
[2021-02-07 02:14] LABS: Glucose Point of Care 131 mg/dL (70-110)
[2021-02-07 02:32] LABS: Glucose Point of Care 134 mg/dL (70-110)
[2021-02-07] MEDS: cisatracurium 100 MG in sodium chloride 0.9% 50 ML 6.12 MG IV (02:44)
[2021-02-07 04:12] LABS: Glucose Point of Care 144 mg/dL (70-110)
[2021-02-07 05:09] LABS: Glucose Point of Care 145 mg/dL (70-110)
[2021-02-07 05:09] LABS: Glucose Point of Care 107 mg/dL (70-110)
[2021-02-07 05:21] LABS: Basophils # 0.1 10^3/uL (0.0-0.1); Basophils % 0.7 %; Hematocrit 44.4 % (37.0-47.0); Hemoglobin 14.4 g/dL (11.5-15.3); Lymphocytes # 1.1 10^3/uL (0.8-4.8); Lymphocytes % 16.5 %; Mean Corpuscular HGB Conc 32.4 g/dL (30.0-36.0); Mean Corpuscular Hemoglobin 30.4 pg (28.0-34.0); Mean Corpuscular Volume 93.9 fl (81-99); Mean Platelet Volume 10.4 fL (7.4-10.4); Monocytes # 0.6 10^3/uL (0.2-0.9); Monocytes % 8.6 %; Neutrophils # 4.74 10^3/uL (1.8-7.7); Nucleated Red Blood Cells % 0.3 %; Platelet Count 282 10^3/cmm (130-400); Red Blood Count 4.73 10^6/uL (4.1-5.3); Red Cell Distribution Width 13.9 % (12.1-15.1); White Blood Count 6.9 10^3/uL (4.0-10.0)
[2021-02-07 05:22] LABS: ABG PCO2 44.6 mmHg (35-45); ABG PH Result 7.42 (7.35-7.45); Arterial Blood Gas Hematocrit 46.5 % (37-47); Base Excess ABG 3.8 mmol/L (-2.0-2.0); Blood Gas Allen Test Pos; Blood Gas Sample Site Radial, left; Blood Gas Sample Type Arterial; Oxygen Device VENT; PO2 ABG 95.5 mmHg (80.0-100.0)
[2021-02-07 05:23] LABS: Blood Gas Tidal Volume 0.38
[2021-02-07] MEDS: remdesivir 100 MG in sodium chloride 0.9% (100 ml) 100 ML IV (05:31)
[2021-02-07] MEDS: linezolid premix 600 MG/300 ML PREMIX 300 MG IV ×2 (05:32→17:20)
[2021-02-07 05:41] LABS: Alanine Aminotransferase 15 U/L (0-33); Albumin Level 2.9 g/dL (3.5-5.2); Alkaline Phosphatase 65 IU/L (35-105); Anion Gap 17.3 (5-19); Aspartate Amino Transferase 25 U/L (0-32); Blood Urea Nitrogen 29 mg/dL (6-20); C Reactive Protein 23.3 mg/L (0.0-4.9); Calcium 8.6 mg/dL (8.5-10.5); Carbon Dioxide 27 mmol/L (22-29); Chloride 109 mmol/L (98-107); Globulin 3.2 g/dL (1.3-4.6); Glomerular Filtration Rate 105.4 mL/min (90-130); Glucose 131 mg/dL (65-115); Magnesium 2.1 mg/dL (1.7-2.3); Osmolality Calculated 318 mOsm/kg (285-295); Phosphorus 3.4 mg/dL (2.5-4.5); Potassium 3.3 mmol/L (3.5-5.1); Sodium 150 mmol/L (136-145); Total Bilirubin 0.3 mg/dL (0.15-1.2); Total Protein 6.1 g/dL (6.6-8.7)
[2021-02-07 05:43] LABS: Lactate (Lactic Acid level) 1.2 mmol/L (0.5-2.2)
[2021-02-07 05:51] LABS: NT Pro B Type Natriuretic Pept 235 pg/mL (0-125); Procalcitonin 0.21 ng/mL (0-0.5)
[2021-02-07 06:06] LABS: Glucose Point of Care 126 mg/dL (70-110)
[2021-02-07 06:17] LABS: Glucose Point of Care 162 mg/dL (70-110)
[2021-02-07 06:22] LABS: Creatine Phosphokinase 1052 U/L (26-192)
[2021-02-07 06:46] LABS: INR 0.99 (0.8-1.2)
[2021-02-07 06:48] LABS: D Dimer 3.13 ug/mIFEU (0-0.59)
--- NOTE | 2021-02-07 07:00 | PC.NURSE ---
BIS/TOF Monitoring Time BIS TOF 0030 60 4 0200 45 4 0400 40 3 0600 45 4
[2021-02-07 07:12] LABS: Glucose Point of Care 155 mg/dL (70-110)
[2021-02-07 07:44] LABS: Neutrophils % 74.2 %
[2021-02-07 07:45] LABS: Slide Review Slide Review Perform
--- NOTE | 2021-02-07 07:49 | PC.NURSE ---
Shift Note Frequent safety and comfort rounds continue. Orders and/or nursing care completed as indicated. Patient monitored for response to intervention and treatment(s). Education provided includes sedation medication. Patient needs further reinforcement. No wounds or skin issues noted at this time. Patient remains unresponsive to painful/verbal stimuli. Vent settings are as follows: VC-AC, FiO2-40%, VT-380, rate-18, PEEP-14. Patient proned at 0030. Yo catheter drained 1200 mls out overnight of yellow/green urine. Patient on Nimbex, please see previous note for BIS/TOF monitoring. Will continue to monitor.
[2021-02-07] MEDS: famotidine 20 mg/2 mL INJ IVP ×2 (08:04→19:37)
[2021-02-07] MEDS: dexamethasone 10 mg/mL INJ 6 MG IVP (08:04)
[2021-02-07] MEDS: enoxaparin 40 mg/0.4 mL Syringe SUBCUT ×2 (08:05→18:37)
[2021-02-07] MEDS: chlorhexidine gluconate 0.12% Btl 473 mL 15 ML MUCOUS MEM ×2 (08:26→17:21)
[2021-02-07 08:36] LABS: Glucose Point of Care 153 mg/dL (70-110)
--- NOTE | 2021-02-07 09:48 | PC.CHAP ---
Pastoral Care Encounter/Spiritual Assessment Type of Contact [] Declined instructional technology facilitator visit [] Patient/Family/Request visit [] Outpatient visit [] Follow-up visit [] Physician referral [] Code/Alert [x] Routine visit [] Staff referral [] Actively dying [x] Patient sleeping [] Family support [] [] Out of room [] Palliative care [] [] Receiving care in room [] Pre-surgical visit [] Trauma [] Long length of stay [x] ICU visit [x] Other: on tummy Relational/Emotional Strength [] Patient feels connected with others/family/visitors/staff [] Distress [] Loneliness/isolation [] Abandonment Spirituality of Patient [] Person of Annalise [] Attends Hinduism of their Annalise [] Believes in Prayer [] Reads Bible or Catholic materials [] There are Spiritual issues to be addressed Lens Coater Interventions [x] Prayer [] Active listening [] Non-anxious presence [] Spiritual/emotional support [] Crisis/trauma care [] Spiritual counseling [] Bereavement support [] Provided bereavement packet [] Provided Bible/devotional materials [] Provided toy/stuffed animal, coloring book to patient or family member [] Provided Communion [] Anointing/[place] [] Salvation [x] Completed spiritual assessment [] Other: Impact on Illness or Injury [] Angry [] Fearful [] Anxious [] Often cries [] Exhaustion [] Unable to work [] Unable to attend anabaptism [] Unable to walk/stand [] Unable to read [] Unable to drive [] Unable to eat/drink [] Unable to sleep [] Unable to be with family [] Patient intubated [] Other: Summary Time spent with patient
[2021-02-07 09:54] LABS: Glucose Point of Care 132 mg/dL (70-110)
--- NOTE | 2021-02-07 10:40 | P.PN_ITS ---
Subjective Subjective: Interval history: Intubated, sedated, paralyzed, proned, mechanically ventilated. Vitals/I&O/Wt Last Vital Signs Temp 98.2 F 02/07/21 04:00 Pulse 56 L 02/07/21 10:00 Resp 18 02/07/21 10:08 BP 143/84 02/07/21 10:00 Pulse Ox 96 02/07/21 10:08 02/06/21 02/07/21 02/07/21 22:59 06:59 14:59 Intake Total 931.339 / 1346.729 728.468 / 2075.197 Output Total 550 / 550 1200 / 1750 Balance 381.339 / 796.729 -471.532 / 325.197 Weight last 48 hrs Weight 117.197 kg Physical Exam Narrative: EXAM NARRATIVE: Intubated, sedated, paralyzed, proned, mechanically ventilated. Const: COMMON NORMALS: no acute distress NUTRITIONAL APPEARANCE: obese morbidly obese HENMT: COMMON NORMALS: oropharynx normal Neck/C-Spine: COMMON NORMALS: no JVD Resp: COMMON NORMALS: clear to auscultation bilaterally AUSCULTATION: clear to auscultation bilaterally Cardio: COMMON NORMALS: no JVD, regular rhythm and No murmurs present (Cardio) RATE: bradycardic RHYTHM: regular rhythm Extremity: COMMON NORMALS: no joint enlargement and no pedal edema Skin: COMMON NORMALS: no rashes or lesions noted GENERAL SKIN EXAM: no rashes or lesions noted Urinary Catheter Management^: Yo: Cath Placed During This Visit: yes Reason for Continuing Indwelling Catheter: Accurate Measurement of Urinary Output in Critically Ill Patients Urinary Catheter Date of Insertion: 02/04/21 Urinary Catheter Time of Insertion: 03:15 Data : 02/07/21 05:03 02/07/21 05:03 Micro: Microbiology 02/04/21 18:30 Gram Stain - Final Sputum - Endotracheal Tube Aspirate Sputum Culture - Preliminary Staphylococcus species A&P Assessment and plan (1) Acute respiratory failure with hypoxia: She is sedated, paralyzed, intubated, prone, mechanically ventilated. Oxygenation is improving. Monitor oxygenation after she is applying again, depending on condition may or may not need additional proning. Septic shock resolved. D-dimer with some increase. Continue Lovenox. Recheck level. Hyperglycemia/DKA improving. Metabolic acidosis improved. Bicarb improved. Anion gap better. Transition to subcutaneous insulin. Sliding scale. Monitor glucose. Propofol was stopped due to hypertriglyceridemia. -Continue remdesivir -Status post 1 dose Actemra -Continue Decadron Sputum culture growing Staphylococcus species. -Continue broad-spectrum antibiotic therapy with Zosyn, linezolid -Sputum cultures, blood cultures, urine bacterial antigens Supportive care. -Central line in place -Lovenox 40 mg twice daily -Pepcid for GI prophylaxis -Chlorhexidine vap prophylaxis -Consult pulmonary critical care -Full code Status: Acute (2) Severe sepsis with septic shock: Status: Acute (3) Pneumonia due to COVID-19 virus: Status: Acute (4) Hypernatremia: Will change infusion base to D5. Continue to monitor sodium. Status: Acute (5) Lactic acidosis: As above Status: Acute (6) Acute kidney injury: As above Status: Acute (7) Diabetes: Will use NPH with Solu-Medrol and will cover her with insulin sliding scale. We will adjust the doses depending on glycemia level Status: Acute (8) Acute metabolic encephalopathy due to hypoglycemia: Resolving. Status: Acute (9) Acute respiratory distress syndrome: Status: Acute (10) Diabetic ketoacidosis: Status: Acute (11) Acute respiratory distress syndrome (ARDS) due to 2019 novel coronavirus: Status: Acute (12) Shock: Status: Acute Additional A&P Information Rhabdomyolysis: Improving. CODE STATUS. Full code. DVT prophylaxis. Lovenox GI prophylaxis. Famotidine. Attestations Medical Necessity Statement*: Continue admission for assessment of management of hypoxic respite failure secondary to severe COVID-19. 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
[2021-02-07 11:48] LABS: Glucose Point of Care 155 mg/dL (70-110)
[2021-02-07] MEDS: insulin lispro 100 unit/1 mL SUBCUT ×3 (11:49→22:09)
--- NOTE | 2021-02-07 12:00 | PC.NURSE ---
Insulin drip was shut off this AM
[2021-02-07] MEDS: cisatracurium 100 MG in sodium chloride 0.9% 50 ML 9.19 MG IV (12:29)
[2021-02-07] MEDS: insulin glargine 100 units/1 mL 60 UNIT SUBCUT ×2 (13:20→22:17)
[2021-02-07 15:09] LABS: Erythrocyte Sedimentation Rate 28 mm/hr (0-15)
[2021-02-07 16:22] LABS: Glucose Point of Care 165 mg/dL (70-110)
--- NOTE | 2021-02-07 16:30 | PC.NURSE ---
Patient was placed in the supine position at 1630. Tolerated well
[2021-02-07] MEDS: piperacillin-tazobactam 3.375 GM in dextrose 5% (plus) 50 ML IV (17:19)
[2021-02-07 17:52] LABS: Sodium 152 mmol/L (136-145)
--- NOTE | 2021-02-07 18:25 | PC.NURSE ---
Nimbex was titrated off. Patient did not tolerate well. She began coughing and oxygen levels dropped to high 70's to low 80's. Dr. albarado gave order for precedex.Oxygen levels returned to mid 90's.
--- NOTE | 2021-02-07 20:04 | PM.PN ---
Subjective Subjective: Interval history: The patient was seen and examined. She underwent her third prone positioning yesterday. After being supine she was requiring 40 to 45% of oxygen. Medications: Reviewed: Yes Vitals/I&O/Wt Last Vital Signs Temp 98.0 F 02/07/21 10:30 Pulse 54 L 02/07/21 18:00 Resp 18 02/07/21 15:27 BP 149/72 02/07/21 18:00 Pulse Ox 86 L 02/07/21 18:00 02/07/21 02/07/21 02/07/21 06:59 14:59 22:59 Intake Total 728.468 / 2142.136 250.152 / 250.152 300.828 / 550.980 Output Total 1200 / 1750 850 / 850 Balance -471.532 / 392.136 250.152 / 250.152 -549.172 / -299.020 Weight last 48 hrs Weight 258 lb 6 oz Physical Exam Narrative: EXAM NARRATIVE: General: The patient was intubated, sedated Neck: Unable to assess jugular venous distention Respiratory: Auscultation: Reduced breath sound bilaterally posteriorly, minimal crackles Cardiovascular: Regular rate and rhythm, S1-S2 present, no murmur, bilateral peripheral edema. Abdomen: Soft, distended from obesity, positive bowel sounds Musculoskeletal: No obvious joint deformity Skin: No rash Neuro: Patient is intubated and sedated Urinary Catheter Management^: Yo: Cath Placed During This Visit: yes Reason for Continuing Indwelling Catheter: Accurate Measurement of Urinary Output in Critically Ill Patients Urinary Catheter Date of Insertion: 02/04/21 Urinary Catheter Time of Insertion: 03:15 Data : 02/07/21 05:03 02/07/21 17:16 Micro: Microbiology 02/04/21 18:30 Gram Stain - Final Sputum - Endotracheal Tube Aspirate Sputum Culture - Final Staphylococcus aureus Attestation for Other Data: I personally reviewed and interpreted the following: Other data: I have reviewed the patient's laboratory microbiologic and neurologic data. A&P Assessment and plan (1) Acute respiratory distress syndrome (ARDS) due to 2019 novel coronavirus: This is a 50-year-old lady with a past history of diabetes mellitus, hypertension, obstructive sleep apnea who is in ARDS secondary to SARS-CoV-2 pneumonia. The patient is supine now. She had 3 sessions of prone positioning. We are going to titrate her sedation optimally so that she can be extubated tomorrow. Status: Acute (2) Diabetic ketoacidosis: This is resolved completely. The bicarb level is normal. The patient was switched to long-acting insulin. Status: Acute (3) Shock: Shock is resolved. We will continue the supportive therapy for the time being. Status: Acute (4) Hypernatremia: Going to increase the fever flush to 400 every 6 hours. Status: Acute Attestations Medical Necessity Statement*: Will defer to the primary team Coding Level of Care Code Acute Site Engineer for [facility] Fwd Diagnoses Acute respiratory distress syndrome (ARDS) due to 2019 novel coronavirus U07.1; J80 Diabetic ketoacidosis E11.10 Shock R57.9 Hypernatremia E87.0 Time Spent (min) 33
[2021-02-07 20:16] LABS: Glucose Point of Care 161 mg/dL (70-110)
[2021-02-07] MEDS: dexmedetomidine 400 MCG in sodium chloride 0.9% (100 ml) 100 ML IV (21:20)
[2021-02-07 22:09] LABS: Glucose Point of Care 192 mg/dL (70-110)
[2021-02-08] VITALS (60 sets, daily range): BP systolic 113–176; BP diastolic 64–139; PULSE 46–126; RESP 15–36; TEMP 36.6–37.2; O2SAT 80–98
[2021-02-08] MEDS: piperacillin-tazobactam 3.375 GM in dextrose 5% (plus) 50 ML IV ×4 (00:31→23:17)
[2021-02-08 03:00] LABS: Hematocrit 40.7 % (37.0-47.0); Hemoglobin 13.9 g/dL (11.5-15.3); Mean Corpuscular HGB Conc 34.2 g/dL (30.0-36.0); Mean Corpuscular Volume 90.6 fl (81-99); Mean Platelet Volume 10.4 fL (7.4-10.4); Platelet Count 261 10^3/cmm (130-400); Red Blood Count 4.49 10^6/uL (4.1-5.3); Red Cell Distribution Width 13.8 % (12.1-15.1)
[2021-02-08 03:12] LABS: D Dimer 3.02 ug/mIFEU (0-0.59)
[2021-02-08 03:28] LABS: Alanine Aminotransferase 24 U/L (0-33); Albumin Level 2.8 g/dL (3.5-5.2); Alkaline Phosphatase 83 IU/L (35-105); Anion Gap 15.4 (5-19); Aspartate Amino Transferase 46 U/L (0-32); Blood Urea Nitrogen 26 mg/dL (6-20); C Reactive Protein 13.6 mg/L (0.0-4.9); Calcium 8.5 mg/dL (8.5-10.5); Carbon Dioxide 30 mmol/L (22-29); Chloride 109 mmol/L (98-107); Glomerular Filtration Rate 130.1 mL/min (90-130); Glucose 115 mg/dL (65-115); Osmolality Calculated 318 mOsm/kg (285-295); Potassium 3.4 mmol/L (3.5-5.1); Sodium 151 mmol/L (136-145); Total Bilirubin 0.6 mg/dL (0.15-1.2); Total Protein 5.8 g/dL (6.6-8.7)
[2021-02-08 03:36] LABS: Add RBC Morph No; Slide Review Slide Review Perform
[2021-02-08 03:37] LABS: Absolute Neutrophil 5.7 10^3/cmm (1.4-6.5); Absolute Segmented Neutrophil 5.3 10/cmm (1.6-7.1); Band Neutrophils Absolute 0.4 10^3/cmm (0.0-1.2); Eosinophils 0 %; Lymphocytes 11 %; Lymphocytes Absolute 1.5 10^3/cmm (1.2-3.4); Monocytes Absolute 0.3 10^3/cmm (0.1-0.6); Platelet Estimate Normal (Normal); Segmented Neutrophils 66 %
[2021-02-08 03:38] LABS: Total Cells Counted 100 (0-100)
[2021-02-08 04:21] LABS: ABG PCO2 51.1 mmHg (35-45); ABG PH Result 7.41 (7.35-7.45); Arterial Blood Gas Hematocrit 55.6 % (37-47); Base Excess ABG 6.2 mmol/L (-2.0-2.0); Blood Gas Allen Test Pos; Blood Gas Sample Site Radial, right; Blood Gas Sample Type Arterial; HCO3 ABG 32.6 mmol/L (22-26); Oxygen Device VENT; PO2 ABG 57.1 mmHg (80.0-100.0)
[2021-02-08 04:22] LABS: Blood Gas Tidal Volume 0.38
[2021-02-08 04:33] LABS: Glucose Point of Care 116 mg/dL (70-110)
[2021-02-08] MEDS: linezolid premix 600 MG/300 ML PREMIX 300 MG IV (05:02)
[2021-02-08] MEDS: remdesivir 100 MG in sodium chloride 0.9% (100 ml) 100 ML IV (05:11)
[2021-02-08] MEDS: dexamethasone 10 mg/mL INJ 6 MG IVP (06:00)
[2021-02-08] MEDS: enoxaparin 40 mg/0.4 mL Syringe SUBCUT ×2 (06:00→18:04)
--- NOTE | 2021-02-08 06:19 | XR_ITS ---
WS: [id number] PORTABLE CHEST HISTORY: confirm tube placement COMPARISON: 02/06/2021 Nasogastric and endotracheal tubes are in good position. LEFT central line in good position with tip in the distal SVC. Mild decreased lung volumes. Diffuse haziness and reticular opacifications over both lungs. No improv ement. No pleural effusion or pneumothorax. Cardiac size: Normal. Mediastinum/Aorta: Normal mediastinum. No osseous abnormality seen. XR/XR chest 1V portable [id number] IMPRESSION: 1. Satisfactory placement of the endotracheal tube and the nasogastric tube. 2. Diffuse bilateral pulmonary interstitial opacifications. Unchanged.
--- NOTE | 2021-02-08 06:23 | PC.NURSE ---
Shift Note Frequent safety and comfort rounds continue. Pt repositioned and oral cares preformed q 2 hours. Orders and nursing care completed as indicated. Dr. Harmon asked to try to titrate the versed off and start precedex, but pts heart rate did not tolerate. Dr. Harmon notified and said to hold precedex and continue with versed to keep patient comfortable. Patient monitored for response to intervention and treatment. Education provided includes precedex. verbalized understanding and updated on pt status.
[2021-02-08 06:39] LABS: Glucose Point of Care 131 mg/dL (70-110)
[2021-02-08] MEDS: famotidine 20 mg/2 mL INJ IVP ×2 (09:27→20:04)
[2021-02-08] MEDS: chlorhexidine gluconate 0.12% Btl 473 mL 15 ML MUCOUS MEM ×2 (09:42→18:04)
[2021-02-08] MEDS: insulin glargine 100 units/1 mL 60 UNIT SUBCUT (09:52)
[2021-02-08 09:57] LABS: Glucose Point of Care 108 mg/dL (70-110)
--- NOTE | 2021-02-08 10:34 | P.PN_ITS ---
Subjective Subjective: Interval history: Intubated, sedated, mechanically ventilated. Vitals/I&O/Wt Last Vital Signs Temp 97.9 F 02/08/21 08:00 Pulse 54 L 02/08/21 10:00 Resp 15 02/08/21 09:11 BP 135/76 02/08/21 10:00 Pulse Ox 92 02/08/21 10:00 02/07/21 02/08/21 02/08/21 22:59 06:59 14:59 Intake Total 458.962 / 709.114 686.046 / 1395.160 Output Total 850 / 850 850 / 1700 Balance -391.038 / -140.886 -163.954 / -304.840 Weight last 48 hrs Weight 121.291 kg Weight 117.197 kg Physical Exam Narrative: EXAM NARRATIVE: Intubated, sedated, paralyzed, proned, mechanically ventilated. Const: COMMON NORMALS: no acute distress NUTRITIONAL APPEARANCE: obese morbidly obese HENMT: COMMON NORMALS: oropharynx normal Neck/C-Spine: COMMON NORMALS: no JVD Resp: COMMON NORMALS: clear to auscultation bilaterally AUSCULTATION: clear to auscultation bilaterally Cardio: COMMON NORMALS: no JVD, regular rhythm and No murmurs present (Cardio) RATE: bradycardic RHYTHM: regular rhythm GI: COMMON NORMALS: Normal to inspection, nondistended, normoactive bowel sounds present, Soft to palpation and non-tender PALPATION: Yes Soft to palpation Extremity: COMMON NORMALS: no joint enlargement and no pedal edema Neuro: COMMON NORMALS: moves all extremities Skin: COMMON NORMALS: no rashes or lesions noted GENERAL SKIN EXAM: no rashes or lesions noted Urinary Catheter Management^: Yo: Cath Placed During This Visit: yes Reason for Continuing Indwelling Catheter: Accurate Measurement of Urinary Output in Critically Ill Patients Urinary Catheter Date of Insertion: 02/04/21 Urinary Catheter Time of Insertion: 03:15 Data : 02/08/21 02:50 02/08/21 02:50 Micro: Microbiology 02/04/21 18:30 Gram Stain - Final Sputum - Endotracheal Tube Aspirate Sputum Culture - Final Staphylococcus aureus A&P Assessment and plan (1) Acute respiratory failure with hypoxia: Wean sedation. Planned extubation. Oxygenation is improving. Septic shock resolved. D-dimer with increased to around 3. Continue Lovenox. Recheck level. Hyperglycemia/DKA improving. Metabolic acidosis improved. Bicarb improved. Anion gap better. Transition to subcutaneous insulin. Sliding scale. Monitor glucose. Propofol was stopped due to hypertriglyceridemia. -Completed remdesivir -Status post 1 dose Actemra -Continue Decadron Sputum culture growing Staphylococcus aureus. -Continue broad-spectrum antibiotic therapy with Zosyn, linezolid -Sputum cultures, blood cultures, urine bacterial antigens Supportive care. -Central line in place -Lovenox 40 mg twice daily -Pepcid for GI prophylaxis -Chlorhexidine vap prophylaxis -Consult pulmonary critical care -Full code Status: Acute (2) Severe sepsis with septic shock: Status: Acute (3) Pneumonia due to COVID-19 virus: Status: Acute (4) Hypernatremia: Frontal, Versed, Zosyn fluid base changed to D5W. Weaning of sedation. Fluid flushes were increased. Recheck sodium again today. Status: Acute (5) Lactic acidosis: As above Status: Acute (6) Acute kidney injury: As above Status: Acute (7) Diabetes: Lantus, sliding scale Status: Acute (8) Acute metabolic encephalopathy due to hypoglycemia: Resolving. Status: Acute (9) Acute respiratory distress syndrome: Status: Acute (10) Diabetic ketoacidosis: Resolved Status: Acute (11) Acute respiratory distress syndrome (ARDS) due to 2019 novel coronavirus: Status: Acute (12) Shock: Status: Acute Additional A&P Information Rhabdomyolysis: Improving. CODE STATUS. Full code. DVT prophylaxis. Lovenox GI prophylaxis. Famotidine. Attestations Medical Necessity Statement*: Continue admission for management of hypoxic respiratory failure secondary to severe COVID-19. Coding Level of Care Code Acute Etcher Photoengraving for [facility] Fwd Exam Comprehensive Diagnoses Acute respiratory failure with hypoxia J96.01 Severe sepsis with septic shock A41.9; R65.21 Pneumonia due to COVID-19 virus U07.1; J12.82 Hypernatremia E87.0 Lactic acidosis E87.2 Acute kidney injury N17.9 Diabetes E11.9 Acute metabolic encephalopathy due to hypoglycemia G93.41; E16.2 Acute respiratory distress syndrome J80 Diabetic ketoacidosis E11.10 Acute respiratory distress syndrome (ARDS) due to 2019 novel coronavirus U07.1; J80 Shock R57.9
--- NOTE | 2021-02-08 10:40 | P.PN_ITS ---
Subjective Subjective: Interval history: The patient was seen and examined. She is resting comfortably but easily arousable. Her oxygen requirement is at 40%. The plan is to extubate her today. Chest x-ray this morning is significantly better compared to when she was intubated. Medications: Reviewed: Yes Vitals/I&O/Wt Last Vital Signs Temp 97.9 F 02/08/21 08:00 Pulse 54 L 02/08/21 10:00 Resp 15 02/08/21 09:11 BP 135/76 02/08/21 10:00 Pulse Ox 92 02/08/21 10:00 02/07/21 02/08/21 02/08/21 22:59 06:59 14:59 Intake Total 458.962 / 709.114 686.046 / 1395.160 Output Total 850 / 850 850 / 1700 Balance -391.038 / -140.886 -163.954 / -304.840 Weight last 48 hrs Weight 267 lb 6.4 oz Weight 258 lb 6 oz Physical Exam Narrative: EXAM NARRATIVE: The patient was intubated, sedated, easily arousable Neck: Unable to assess jugular venous distention Respiratory: Auscultation: Reduced breath sound bilaterally posteriorly, minimal crackles Cardiovascular: Regular rate and rhythm, S1-S2 present, no murmur, bilateral peripheral edema. Abdomen: Soft, distended from obesity, positive bowel sounds Musculoskeletal: No obvious joint deformity Skin: No rash Neuro: Moving all extremities Urinary Catheter Management^: Yo: Cath Placed During This Visit: yes Reason for Continuing Indwelling Catheter: Accurate Measurement of Urinary Output in Critically Ill Patients Urinary Catheter Date of Insertion: 02/04/21 Urinary Catheter Time of Insertion: 03:15 Data : 02/08/21 02:50 02/08/21 02:50 Micro: Microbiology 02/04/21 18:30 Gram Stain - Final Sputum - Endotracheal Tube Aspirate Sputum Culture - Final Staphylococcus aureus Attestation for Other Data: I personally reviewed and interpreted the following: Other data: The endotracheal tube aspirate is growing MSSA. A&P Assessment and plan (1) Acute respiratory distress syndrome (ARDS) due to 2019 novel coronavirus: This is a 50-year-old lady with a past history of diabetes mellitus, hypertension, obstructive sleep apnea who is in ARDS secondary to SARS-CoV-2 pneumonia. The patient is supine now. She had 3 sessions of prone positioning. The patient was on 40% oxygen overnight. The plan is to extubate her today. When the sedation is reduced the patient will likely have cough and loss of functional residual capacity, will likely result in hypoxia. This is not a contraindication to extubation. This is essentially expected. Despite that, the plan is to extubate her to high flow. Her endotracheal aspirate culture is positive for MSSA. I am going to discontinue the linezolid and continue with Zosyn. Status: Acute (2) Diabetic ketoacidosis: This is resolved completely. The bicarb level is normal. The patient was switched to long-acting insulin. Status: Acute (3) Shock: Shock is resolved. We will continue the supportive therapy for the time being. Status: Acute (4) Hypernatremia: The patient is on free water flush 400 cc every 6 hours. Her serum sodium is 151. Once the patient is extubated all her medications will be modified accordingly. Status: Acute Attestations Medical Necessity Statement*: Will defer to the primary team Coding Level of Care Code Acute Speech Therapist for [facility] Diagnoses Acute respiratory distress syndrome (ARDS) due to 2019 novel coronavirus U07.1; J80 Diabetic ketoacidosis E11.10 Shock R57.9 Hypernatremia E87.0 Time Spent (min) 33
[2021-02-08 12:09] LABS: Glucose Point of Care 112 mg/dL (70-110)
--- NOTE | 2021-02-08 16:00 | PC.NURSE ---
All sedation was titrated off this shift. Patient is able to open eyes but not follow any commands. She intermittently shakes head back and forth and has large amounts of secretions. has been updated throughout shift.
[2021-02-08 17:13] LABS: Glucose Point of Care 99 mg/dL (70-110)
[2021-02-08 17:19] LABS: Sodium 149 mmol/L (136-145)
[2021-02-08] MEDS: haloperidol inj 5 mg/mL INJ 1 mL IM (18:04)
--- NOTE | 2021-02-08 19:08 | PC.NURSE ---
Sedation turned back on due to continued restlessness and inability to follow commands.
[2021-02-08] MEDS: propofol 1,000 MG/100 ML INJ 3.64 MG IV (20:31)
--- NOTE | 2021-02-08 21:02 | PC.NURSE ---
Pt was weaned off sedation throughout the day. Pt became more agitated, pulling at restraints and attempting to push the tube out of her mouth. Dr. Harmon notifed and propofol was ordered, see MAR.
[2021-02-08 22:34] LABS: Glucose Point of Care 69 mg/dL (70-110)
--- NOTE | 2021-02-08 23:05 | PC.NURSE ---
Pt had blood sugar of 69. Dr. Brizuela notified and ordered to hold Lantus, follow hypoglycemic protocol and restart tube feeds at 10ml/hr and increase rate by 10 ml/shift. Dr. Brizuela also notified that tube feedings were stopped originally for high residuals.
[2021-02-08] MEDS: dextrose 50% syringe 50 mL 25 ML IVP (23:12)
[2021-02-08] MEDS: dextrose 5 % 500 ML 100 ML IV (23:16)
[2021-02-09] VITALS (66 sets, daily range): BP systolic 111–194; BP diastolic 59–92; PULSE 45–83; RESP 16–29; TEMP 36.6–38.3; O2SAT 77–98
[2021-02-09] MEDS: propofol 1,000 MG/100 ML INJ 35 MG IV (00:44)
[2021-02-09 00:52] LABS: Glucose Point of Care 103 mg/dL (70-110)
[2021-02-09 02:16] LABS: Basophils % 0.5 %; Eosinophils # 0.1 10^3/uL (0.0-0.8); Eosinophils % 0.6 %; Hematocrit 42.7 % (37.0-47.0); Lymphocytes # 1.5 10^3/uL (0.8-4.8); Lymphocytes % 17.3 %; Mean Corpuscular HGB Conc 32.8 g/dL (30.0-36.0); Mean Corpuscular Hemoglobin 30.8 pg (28.0-34.0); Mean Corpuscular Volume 94.1 fl (81-99); Mean Platelet Volume 10.3 fL (7.4-10.4); Monocytes # 0.4 10^3/uL (0.2-0.9); Monocytes % 4.7 %; Neutrophils # 6.16 10^3/uL (1.8-7.7); Nucleated Red Blood Cells % 0 %; Platelet Count 277 10^3/cmm (130-400); Red Blood Count 4.54 10^6/uL (4.1-5.3); Red Cell Distribution Width 14.1 % (12.1-15.1); White Blood Count 8.6 10^3/uL (4.0-10.0)
[2021-02-09 02:34] LABS: Alanine Aminotransferase 26 U/L (0-33); Albumin Level 2.7 g/dL (3.5-5.2); Alkaline Phosphatase 79 IU/L (35-105); Anion Gap 11.6 (5-19); Aspartate Amino Transferase 41 U/L (0-32); Blood Urea Nitrogen 20 mg/dL (6-20); Calcium 8.4 mg/dL (8.5-10.5); Carbon Dioxide 32 mmol/L (22-29); Chloride 108 mmol/L (98-107); Globulin 2.8 g/dL (1.3-4.6); Glomerular Filtration Rate 168.3 mL/min (90-130); Glucose 114 mg/dL (65-115); Magnesium 1.9 mg/dL (1.7-2.3); Osmolality Calculated 311 mOsm/kg (285-295); Sodium 149 mmol/L (136-145); Total Bilirubin 0.3 mg/dL (0.15-1.2); Total Protein 5.5 g/dL (6.6-8.7)
[2021-02-09 02:36] LABS: Potassium 2.6 mmol/L (3.5-5.1)
[2021-02-09] MEDS: lidocaine 1% 5 ML in potassium chloride premix 100 ML 25 ML IV ×2 (03:50→09:07)
[2021-02-09 04:28] LABS: Glucose Point of Care 143 mg/dL (70-110)
[2021-02-09] MEDS: propofol 1,000 MG/100 ML INJ 30 MG IV (04:38)
--- NOTE | 2021-02-09 05:24 | PC.NURSE ---
Shift Note Frequent safety and comfort rounds continue. Pt agitation decreased after Propofol drip was started. Pt blood sugar was <70 and hypoglycemic protocol was followed. Dr. Brizuela also restarted tube feeding. Orders and nursing care completed as indicated. Patient monitored for response to intervention and treatment. Education provided to includes propofol and fentanyl. verbalized understanding.
[2021-02-09] MEDS: insulin lispro 100 unit/1 mL SUBCUT (05:48)
[2021-02-09] MEDS: dexamethasone 10 mg/mL INJ 6 MG IVP (06:00)
[2021-02-09] MEDS: enoxaparin 40 mg/0.4 mL Syringe SUBCUT ×2 (06:00→18:21)
[2021-02-09 08:10] LABS: Anion Gap 10.1 (5-19); Blood Urea Nitrogen 21 mg/dL (6-20); Calcium 8.3 mg/dL (8.5-10.5); Carbon Dioxide 34 mmol/L (22-29); Chloride 109 mmol/L (98-107); Glomerular Filtration Rate 130.1 mL/min (90-130); Glucose 111 mg/dL (65-115); Osmolality Calculated 314 mOsm/kg (285-295); Potassium 3.1 mmol/L (3.5-5.1); Sodium 150 mmol/L (136-145)
[2021-02-09] MEDS: famotidine 20 mg/2 mL INJ IVP ×2 (09:07→20:19)
[2021-02-09] MEDS: propofol 1,000 MG/100 ML INJ 29.11 MG IV (09:07)
[2021-02-09] MEDS: piperacillin-tazobactam 3.375 GM in dextrose 5% (plus) 50 ML IV ×3 (09:09→23:57)
[2021-02-09 09:14] LABS: Triglycerides 1368 mg/dL (0-150)
[2021-02-09] MEDS: chlorhexidine gluconate 0.12% Btl 473 mL 15 ML MUCOUS MEM (09:23)
[2021-02-09 09:27] LABS: LDL Cholesterol Direct 92 mg/dL (0-100)
[2021-02-09 10:29] LABS: Glucose Point of Care 125 mg/dL (70-110)
--- NOTE | 2021-02-09 10:32 | PC.CHAP ---
Pastoral Care Encounter/Spiritual Assessment Type of Contact [] Declined fire and safety helper visit [] Patient/Family/Request visit [] Outpatient visit [] Follow-up visit [] Physician referral [] Code/Alert [x] Routine visit [] Staff referral [] Actively dying [] Patient sleeping [] Family support [] [] Out of room [] Palliative care [] [] Receiving care in room [] Pre-surgical visit [] Trauma [] Long length of stay [x] ICU visit [x] Other: isolated Relational/Emotional Strength [] Patient feels connected with others/family/visitors/staff [] Distress [] Loneliness/isolation [] Abandonment Spirituality of Patient [] Person of Annalise [] Attends Shinto of their Annalise [] Believes in Prayer [] Reads Bible or Buddhist materials [] There are Spiritual issues to be addressed Sock Boarder Interventions [x] Prayer [] Active listening [] Non-anxious presence [] Spiritual/emotional support [] Crisis/trauma care [] Spiritual counseling [] Bereavement support [] Provided bereavement packet [] Provided Bible/devotional materials [] Provided toy/stuffed animal, coloring book to patient or family member [] Provided Communion [] Anointing/[place] [] Salvation [x] Completed spiritual assessment [] Other: Impact on Illness or Injury [] Angry [] Fearful [] Anxious [] Often cries [] Exhaustion [] Unable to work [] Unable to attend sikh [] Unable to walk/stand [] Unable to read [] Unable to drive [] Unable to eat/drink [] Unable to sleep [] Unable to be with family [] Patient intubated [] Other: Summary Time spent with patient
--- NOTE | 2021-02-09 10:52 | PM.PN ---
Subjective Subjective: Interval history: Opens eyes, confused, does not answer questions, does not follow commands for me. Discussed with her , oxygenation overall has been gradually improving. Will be having difficulties with weaning down sedation. She has been intolerant of propofol due to worsening hypertriglyceridemia, intolerant of Precedex due to bradycardia, and having difficult time weaning off easily off of fentanyl. Intermittent episodes of cough, intermittent episodes of agitation last night. This morning episode normal appears to be somewhat calmer. Will resume attempts to wean down sedation with goal of extubation. Vitals/I&O/Wt Last Vital Signs Temp 97.9 F 02/09/21 07:30 Pulse 62 02/09/21 10:00 Resp 23 H 02/09/21 10:37 BP 146/77 02/09/21 10:00 Pulse Ox 95 02/09/21 10:37 02/08/21 02/09/21 02/09/21 22:59 06:59 14:59 Intake Total 113.295 / 266.879 861.371 / 1128.250 363.879 / 363.879 Output Total 600 / 1250 Balance 113.295 / -383.121 261.371 / -121.750 363.879 / 363.879 Weight last 48 hrs Weight 119.295 kg Weight 121.291 kg Physical Exam Const: COMMON NORMALS: no acute distress GENERAL APPEARANCE: patient mechanically ventilated NUTRITIONAL APPEARANCE: obese morbidly obese ORIENTATION/CONSCIOUSNESS: Yes confused OTHER: Opens eyes, not answering questions or following commands. HENMT: COMMON NORMALS: oropharynx normal Neck/C-Spine: COMMON NORMALS: no JVD Resp: COMMON NORMALS: clear to auscultation bilaterally AUSCULTATION: clear to auscultation bilaterally Cardio: COMMON NORMALS: no JVD, regular rhythm and No murmurs present (Cardio) RATE: bradycardic RHYTHM: regular rhythm GI: COMMON NORMALS: Normal to inspection, nondistended, normoactive bowel sounds present, Soft to palpation and non-tender PALPATION: Yes Soft to palpation Extremity: COMMON NORMALS: no joint enlargement and no pedal edema Neuro: COMMON NORMALS: moves all extremities Skin: COMMON NORMALS: no rashes or lesions noted GENERAL SKIN EXAM: no rashes or lesions noted Urinary Catheter Management^: Yo: Cath Placed During This Visit: yes Reason for Continuing Indwelling Catheter: Accurate Measurement of Urinary Output in Critically Ill Patients Urinary Catheter Date of Insertion: 02/04/21 Urinary Catheter Time of Insertion: 03:15 Data : 02/09/21 02:00 02/09/21 07:37 Micro: Microbiology 02/04/21 03:50 Blood Culture - Final Blood NO GROWTH AFTER 5 DAYS 02/04/21 03:35 Blood Culture - Final Blood NO GROWTH AFTER 5 DAYS A&P Assessment and plan (1) Acute respiratory failure with hypoxia: Acute encephalopathy following weaning sedation, with infection, hypoxia, critical illness, possible medication effect. Intermittent episodes of agitation with attempted wean of sedation last night was unable to wean off and extubated. reports she is severely claustrophobic as well. Intolerant of propofol, worsening triglycerides up to 1300, will need to wean off and discontinue. Generally not tolerant of Precedex well due to bradycardia. Consider valproic acid with persistent agitation. reports also history of brain tumor for which she was being followed in [place] prior to moving here. Discussed consideration of taking her for CT of the head. Resume home gabapentin, Topamax, sertraline, trazodone, tizanidine, Zyrtec. Cut down dose of Decadron. Continue antibiotic which should provide coverage in case staph aureus is pathogenic, although has not so far had symptoms of focal bacterial pneumonia. D-dimer with increased to around 3. Continue Lovenox prophylaxis. Recheck level. Hyperglycemia/DKA improving. Metabolic acidosis improved. Bicarb improved. Anion gap better. Transition to subcutaneous insulin. Sliding scale. Monitor glucose. Propofol was stopped due to hypertriglyceridemia. -Completed remdesivir -Status post 1 dose Actemra Sputum culture growing Staphylococcus aureus. -Continue broad-spectrum antibiotic therapy with Zosyn, linezolid -Central line in place -Lovenox 40 mg twice daily -Pepcid for GI prophylaxis -Chlorhexidine vap prophylaxis Status: Acute (2) Severe sepsis with septic shock: Status: Acute (3) Pneumonia due to COVID-19 virus: Status: Acute (4) Hypernatremia: With mild improvement. Effusions were possible with D5W. Water flushes were increased. Monitor sodium. Status: Acute (5) Lactic acidosis: As above Status: Acute (6) Acute kidney injury: As above Status: Acute (7) Diabetes: [place] sliding scale Status: Acute (8) Acute metabolic encephalopathy due to hypoglycemia: Resolving. Status: Acute (9) Acute respiratory distress syndrome: Status: Acute (10) Diabetic ketoacidosis: Resolved Status: Acute (11) Acute respiratory distress syndrome (ARDS) due to 2019 novel coronavirus: Status: Acute (12) Shock: Status: Acute Additional A&P Information Hypokalemia: Replaced, still low, additional replacement requested. Rhabdomyolysis: Improving. History of brain tumor: Hospital states she had been followed in [place] [facility] [place] Medical Necessity Statement*: Admission for weaning of mechanical ventilatory support and sedation with hypoxic respiratory severe COVID-19, recurrent agitation with weaning of sedation. Critical Care Time: The high probability of a clinically significant, sudden or life threatening deterioration of the patient's respiratory system(s) and agitation with weaning sedation required my full and direct attention, intervention and personal management. The critical care time is as shown. This time is in addition to time spent performing any reported procedures but includes the following: x Data and vital sign review and interpretation x Patient assessment, examination and intervention x Documentation x Medication orders and management Discussed with nursing staff, patient's . Critical Care Time (min): 48 Coding Level of Care Code Acute Welder/Fitter for [facility] Fwd Diagnoses Acute respiratory failure with hypoxia J96.01 Severe sepsis with septic shock A41.9; R65.21 Pneumonia due to COVID-19 virus U07.1; J12.82 Hypernatremia E87.0 Lactic acidosis E87.2 Acute kidney injury N17.9 Diabetes E11.9 Acute metabolic encephalopathy due to hypoglycemia G93.41; E16.2 Acute respiratory distress syndrome J80 Diabetic ketoacidosis E11.10 Acute respiratory distress syndrome (ARDS) due to 2019 novel coronavirus U07.1; J80 Shock R57.9
[2021-02-09] MEDS: dexmedetomidine 400 MCG in sodium chloride 0.9% (100 ml) 100 ML 12.19 MCG IV (13:10)
--- NOTE | 2021-02-09 13:49 | PM.PN ---
Subjective Subjective: Interval history: Patient was seen and examined. She is breathing on her own with good tidal volume FiO2 of 40%. Unfortunately, her mental status is not the greatest when she comes off of sedation. Overnight, the patient needed sedation with fentanyl and propofol with the goal of rapidly titrating his medications down and extubating her this morning. Her triglyceride level is 1300 despite the propofol being off for almost 72 hours. Medications: Reviewed: Yes Vitals/I&O/Wt Last Vital Signs Temp 97.9 F 02/09/21 07:30 Pulse 57 L 02/09/21 13:00 Resp 19 H 02/09/21 12:56 BP 123/62 02/09/21 13:00 Pulse Ox 88 L 02/09/21 13:00 02/08/21 02/09/21 02/09/21 22:59 06:59 14:59 Intake Total 113.295 / 266.879 861.371 / 1128.250 413.879 / 413.879 Output Total 600 / 1250 Balance 113.295 / -383.121 261.371 / -121.750 413.879 / 413.879 Weight last 48 hrs Weight 263 lb Weight 267 lb 6.4 oz Physical Exam Narrative: EXAM NARRATIVE: General: The patient was intubated, mildly sedated, easily arousable not following commands consistently Neck: Unable to assess jugular venous distention Respiratory: Auscultation: Reduced breath sound bilaterally posteriorly, minimal crackles Cardiovascular: Regular rate and rhythm, S1-S2 present, no murmur, bilateral peripheral edema. Abdomen: Soft, distended from obesity, positive bowel sounds Musculoskeletal: No obvious joint deformity Skin: No rash Neuro: Moving all extremities Urinary Catheter Management^: Yo: Cath Placed During This Visit: yes Reason for Continuing Indwelling Catheter: Accurate Measurement of Urinary Output in Critically Ill Patients Urinary Catheter Date of Insertion: 02/04/21 Urinary Catheter Time of Insertion: 03:15 Data : 02/09/21 02:00 02/09/21 07:37 Micro: Microbiology 02/04/21 03:50 Blood Culture - Final Blood NO GROWTH AFTER 5 DAYS 02/04/21 03:35 Blood Culture - Final Blood NO GROWTH AFTER 5 DAYS Attestation for Other Data: I personally reviewed and interpreted the following: Other data: I have reviewed her laboratory, microbiologic and radiologic data patient has mild hyponatremia with hypokalemia and evidence of metabolic alkalosis secondary to likely dehydration A&P Assessment and plan (1) Acute respiratory distress syndrome (ARDS) due to 2019 novel coronavirus: This is a 50-year-old lady with a past history of diabetes mellitus, hypertension, obstructive sleep apnea who is in ARDS secondary to SARS-CoV-2 pneumonia. She had 3 sessions of prone positioning. The patient is stable regarding the FiO2 requirement. Unfortunately, her mental status has not been the best when we try to come off of the sedation. I believe the patient is going to be need to be extubated. We will support her with BiPAP or high flow nasal cannula post extubation. I believe once the endotracheal tube is out her mental status will be better. Status: Acute (2) Diabetic ketoacidosis: This is resolved completely. The patient was switched to long-acting insulin. Status: Acute (3) Shock: Shock is resolved. We will continue the supportive therapy for the time being. Status: Acute (4) Hypernatremia: Her sodium is 150 today. The patient will need free water once she is extubated. She is likely will need an NG tube. Status: Acute Attestations Medical Necessity Statement*: Will defer to the primary team Coding Level of Care Code Acute Building Equipment Operator for agueda Subramanian Diagnoses Acute respiratory distress syndrome (ARDS) due to 2019 novel coronavirus U07.1; J80 Diabetic ketoacidosis E11.10 Shock R57.9 Hypernatremia E87.0 Time Spent (min) 37
[2021-02-09 17:01] LABS: Glucose Point of Care 119 mg/dL (70-110)
[2021-02-09] MEDS: haloperidol inj 5 mg/mL INJ 1 mL 10 MG IM (17:02)
[2021-02-09] MEDS: dexmedetomidine 400 MCG in sodium chloride 0.9% (100 ml) 100 ML 30.47 MCG IV (17:24)
[2021-02-09] MEDS: morphine 4 mg/mL SDV 1 mL 2 MG IVP (18:21)
[2021-02-09] MEDS: water for injection-sterile 10 ML 999 ML (18:21)
[2021-02-09] MEDS: OLANZapine 10 mg VIAL IM (18:22)
--- NOTE | 2021-02-09 19:55 | PC.NURSE ---
Addendum entered by Millicent Robles RN 02/09/21 20:27: Temperature rechecked, 99.2 axillary. Original Note: Temp 101 axillary, ice packs placed christin axillary and groin on patient, room temperature decreased, blankets removed.
--- NOTE | 2021-02-09 21:36 | PC.NURSE ---
Spoke to Dr Harmon at 538, updated on patient condition-remains on bipap /, FiO2 100%-patient O2 sat 93%, RR 22. Patient is sedated at this time on fent 25mcg/hr and 0.7mcg/kg/hr, also previously received 10mg zyprexa and 10mg haldol, 2mg morphine by day shift RN. Patient withdrawing to pain at this time but not following commands. Orders to continue titrating FiO2 and sedation. If patient becomes restless and agitated(screaming, increased respirations) may give 5mg of zyprexa one time dose. Please do not give any benzos.
[2021-02-09 21:55] LABS: Glucose Point of Care 89 mg/dL (70-110)
--- NOTE | 2021-02-09 21:59 | PC.NURSE ---
Santino() updated on current patient condition-remains on bipap, sedated at this time. Unable to follow commands at this time. Current vital signs-O2 sat 92%, BP 159/86.
[2021-02-09] MEDS: dexmedetomidine 400 MCG in sodium chloride 0.9% (100 ml) 100 ML 18.28 MCG IV (22:26)
--- NOTE | 2021-02-09 23:47 | PC.NURSE ---
At 2345 patient woke up, yelling help me , thrashing extremities while in soft limb bilateral wrist restraints. Patient was reoriented to situation, reassured of safety, redirected from pulling at lines. Patient able to follow commands at this time-wiggled toes, weak equal flitch hanger, opened eyes, state her name, and nod appropriately.
[2021-02-10] VITALS (58 sets, daily range): BP systolic 98–176; BP diastolic 48–109; PULSE 42–80; RESP 14–38; TEMP 36.7–37.7; O2SAT 52–100
--- NOTE | 2021-02-10 01:01 | PC.NURSE ---
Patient able to talk to her Santino() on the phone, able to converse with . Patient respirations decreased froms 40s to 25-30s bpm, nonlabored symmetrical breathing while talking to her . Patient is more agreeable to treatment(maintaining bipap on) after talking to her . Reassurance and reorientation provided by nurse and .
[2021-02-10] MEDS: OLANZapine 10 mg VIAL 5 MG IM (01:25)
--- NOTE | 2021-02-10 01:37 | PC.NURSE ---
Patient thrashing in bed, respirations 40bpm, patient yelling help me, I want to go home Patient attempting to take restraints and pull at bipap while kicking her legs. Administered zyprexa as ordered. Patient reassured and reoriented to situation.
[2021-02-10 03:05] LABS: Glucose Point of Care 86 mg/dL (70-110)
[2021-02-10] MEDS: dexmedetomidine 400 MCG in sodium chloride 0.9% (100 ml) 100 ML 24.38 MCG IV (03:21)
[2021-02-10 03:37] LABS: Basophils % 0.3 %; Eosinophils # 0.1 10^3/uL (0.0-0.8); Eosinophils % 1.3 %; Hematocrit 43.4 % (37.0-47.0); Hemoglobin 14.7 g/dL (11.5-15.3); Lymphocytes # 0.8 10^3/uL (0.8-4.8); Lymphocytes % 8.1 %; Mean Corpuscular HGB Conc 33.9 g/dL (30.0-36.0); Mean Corpuscular Volume 91.6 fl (81-99); Mean Platelet Volume 10.3 fL (7.4-10.4); Monocytes # 0.3 10^3/uL (0.2-0.9); Monocytes % 2.7 %; Neutrophils # 8.13 10^3/uL (1.8-7.7); Neutrophils % 85.5 %; Nucleated Red Blood Cells % 0 %; Platelet Count 183 10^3/cmm (130-400); Red Blood Count 4.74 10^6/uL (4.1-5.3); Red Cell Distribution Width 13.5 % (12.1-15.1); White Blood Count 9.5 10^3/uL (4.0-10.0)
[2021-02-10 04:16] LABS: Alanine Aminotransferase 24 U/L (0-33); Albumin Level 2.8 g/dL (3.5-5.2); Alkaline Phosphatase 94 IU/L (35-105); Anion Gap 13.1 (5-19); Aspartate Amino Transferase 48 U/L (0-32); Blood Urea Nitrogen 14 mg/dL (6-20); Calcium 8.1 mg/dL (8.5-10.5); Carbon Dioxide 31 mmol/L (22-29); Chloride 109 mmol/L (98-107); Globulin 2.5 g/dL (1.3-4.6); Glomerular Filtration Rate 130.1 mL/min (90-130); Glucose 94 mg/dL (65-115); Osmolality Calculated 310 mOsm/kg (285-295); Potassium 3.1 mmol/L (3.5-5.1); Sodium 150 mmol/L (136-145); Total Bilirubin 0.5 mg/dL (0.15-1.2); Total Protein 5.3 g/dL (6.6-8.7)
[2021-02-10 04:17] LABS: D Dimer 10.13 ug/mIFEU (0-0.59)
[2021-02-10] MEDS: enoxaparin 40 mg/0.4 mL Syringe SUBCUT ×2 (06:03→17:51)
[2021-02-10] MEDS: dexamethasone 10 mg/mL INJ 3 MG IVP (06:04)
--- NOTE | 2021-02-10 06:22 | NUR.SHIFT ---
FiO2 titrated to 85%, patient tolerating. Patient is agitated this morning, screaming Im going to punch your face if you dont let me out of here now while attempting to get out of her restraints and pull bipap off. Unable to maintain precedex titrated down, increased to help with agitation and restlessness.
--- NOTE | 2021-02-10 08:56 | P.PN_ITS ---
Subjective Subjective: Interval history: Today she is on BiPAP support, 80% FiO2, she wakes up to voice, denies any pain or discomfort. No chest pain or pressure. No abdominal discomfort or nausea. When asked if she has any needs, requests that she be released home. Discussing with her again as per above still elevated oxygen requirement, currently requirement for BiPAP support, it is unlikely that she would make it for very long at home on the oxygen that can be provided yet. Anticipate improvement, if she so far has gotten better, but it may be a slow process. She request that she still wants to go home. Asked her if she would want to discontinue care, she states yes, asking her if she understands that she may pass away discontinuing current care, she states that yes she understands that. She knows that she is in the hospital. Knows the year. Denies any recent depression. Asking her why she is here, replies pneumonia. Asking her whether she had discussed this with her , states he is that she has spoken with him today. Discussing with the nursing staff, she has been somewhat irritable and disagreeable through the night. Discussed with her , they did not speak today, spoke last night. He states that last night she was confused, however. Vitals/I&O/Wt Last Vital Signs Temp 98.9 F 02/10/21 04:00 Pulse 49 L 02/10/21 08:10 Resp 34 H 02/10/21 06:30 BP 133/78 02/10/21 06:30 Pulse Ox 92 02/10/21 08:10 02/09/21 02/10/21 02/10/21 22:59 06:59 14:59 Intake Total 255.651 / 820.005 213.007 / 1033.012 Output Total 700 / 700 650 / 1350 Balance -444.349 / 120.005 -436.993 / -316.988 Weight last 48 hrs Weight 118.047 kg Weight 119.295 kg Physical Exam Narrative: EXAM NARRATIVE: BiPAP Const: COMMON NORMALS: no acute distress NUTRITIONAL APPEARANCE: obese morbidly obese OTHER: Awakens to voice HENMT: COMMON NORMALS: oropharynx normal Neck/C-Spine: COMMON NORMALS: no JVD Resp: COMMON NORMALS: clear to auscultation bilaterally AUSCULTATION: clear to auscultation bilaterally Cardio: COMMON NORMALS: no JVD, regular rhythm and No murmurs present (Cardio) RATE: bradycardic RHYTHM: regular rhythm GI: COMMON NORMALS: Normal to inspection, nondistended, normoactive bowel sounds present, Soft to palpation and non-tender PALPATION: Yes Soft to palpation Extremity: COMMON NORMALS: no joint enlargement and no pedal edema Neuro: COMMON NORMALS: moves all extremities Skin: COMMON NORMALS: no rashes or lesions noted GENERAL SKIN EXAM: no rashes or lesions noted Urinary Catheter Management^: Yo: Cath Placed During This Visit: yes Reason for Continuing Indwelling Catheter: Accurate Measurement of Urinary Output in Critically Ill Patients Urinary Catheter Date of Insertion: 02/04/21 Urinary Catheter Time of Insertion: 03:15 Data : 02/10/21 03:25 02/10/21 03:25 Micro: Microbiology 02/04/21 03:50 Blood Culture - Final Blood NO GROWTH AFTER 5 DAYS 02/04/21 03:35 Blood Culture - Final Blood NO GROWTH AFTER 5 DAYS A&P Assessment and plan (1) Acute respiratory failure with hypoxia: Extubated yesterday. Continues on BiPAP support with FiO2 80% with full facemask. Last night she was confused. Today appears to be getting more lucid, requesting to return home. Discussed with her . Return to establish whether she truly understands the consequences as she likely would not make it long with discontinuation of aggressive respiratory support at this time. We will continue goals of care discussions. As per discussion with her as well he will be coming to visit with her today as well. As per discussion with him, if we are seeing that she truly understands her condition and consequences without any additional signs of confusion, and wants to proceed with transition to comfort care, we can make the arrangements. Continue reassessments, continue discussion. After discussion with her she is agreeable to stay in the hospital, but once off BiPAP. Discussed with him, earlier RT was having difficulty maintaining saturation above low 80s on 100% NRB. Discussed we may try combination heated high flow and NRB on top with doubled up devices although that still may not guarantee adequate oxygenation, but will try to accommodate. D-dimer elevated today up to 10. Will assess lower extremity duplex ultrasound. Had acute encephalopathy during weaning sedation. Intermittent episodes of agitation. Appears to be becoming more lucid. is coming to visit and support/spend time with her. reported she is severely claustrophobic as well. reports also history of brain tumor for which she was being followed in [place] prior to moving here. Resumed home gabapentin, Topamax, sertraline, trazodone, tizanidine, Zyrtec. Cut down dose of Decadron to 3mg. Continue antibiotic which should provide coverage in case staph aureus is pathogenic, although has not so far had symptoms of focal bacterial pneumonia. Hyperglycemia/DKA improving. Metabolic acidosis improved. Bicarb improved. Anion gap better. Off drip. Subcutaneous insulin. Sliding scale. Monitor glucose. Propofol was stopped due to hypertriglyceridemia. -Completed remdesivir -Status post 1 dose Actemra Sputum culture growing Staphylococcus aureus. -Continue broad-spectrum antibiotic therapy with Zosyn, linezolid -Central line in place -Lovenox 40 mg twice daily -Pepcid for GI prophylaxis Status: Acute (2) Severe sepsis with septic shock: Status: Acute (3) Pneumonia due to COVID-19 virus: Status: Acute (4) Hypernatremia: With mild improvement. Effusions were possible with D5W. Water flushes were increased. Monitor sodium. Status: Acute (5) Lactic acidosis: As above Status: Acute (6) Acute kidney injury: As above Status: Acute (7) Diabetes: Lantus, sliding scale Status: Acute (8) Acute metabolic encephalopathy due to hypoglycemia: Resolving. Status: Acute (9) Acute respiratory distress syndrome: Status: Acute (10) Diabetic ketoacidosis: Resolved Status: Acute (11) Acute respiratory distress syndrome (ARDS) due to 2019 novel coronavirus: Status: Acute (12) Shock: Status: Acute Additional A&P Information Hypokalemia: Requested replacement Rhabdomyolysis: Improving. History of brain tumor: Hospital states she had been followed in [place] Attestations Medical Necessity Statement*: Continue admission for assessment management of hypoxic respite failure secondary to severe COVID-19, continued mental status reassessment, continued goals of care discussions. Coding Level of Care Code Acute Band Tier for [facility] Diagnoses Acute respiratory failure with hypoxia J96.01 Severe sepsis with septic shock A41.9; R65.21 Pneumonia due to COVID-19 virus U07.1; J12.82 Hypernatremia E87.0 Lactic acidosis E87.2 Acute kidney injury N17.9 Diabetes E11.9 Acute metabolic encephalopathy due to hypoglycemia G93.41; E16.2 Acute respiratory distress syndrome J80 Diabetic ketoacidosis E11.10 Acute respiratory distress syndrome (ARDS) due to 2019 novel coronavirus U07.1; J80 Shock R57.9
--- NOTE | 2021-02-10 09:02 | USCV_ITS ---
Debbie Martin Age: 50 Gender: F : 1970 Exam Date: 02/10/2021 10:44 Ordering Phys: Reagan Fisher MD Technologist: KIKE Exam Location: [facility] [place] Indication: ELEVATED D DIMER AND COVID PROCEDURES: Venous duplex imaging was performed in bilateral lower extremities. The following venous structures were evaluated: common femoral vein, profunda vein, proximal portion of the greater saphenous vein, superficial femoral vein, and the popliteal vein. In addition, the posterior tibial and peroneal trunk were evaluated. Serial compression, augmentation maneuvers, and spectral Doppler flow evaluation were performed. FINDINGS: Normal 2-D Doppler and augmentation and compressibility throughout the lower extremity venous structures. Additional imaging through the proximal calf veins also reveals no thrombus. Limited evaluation of the greater saphenous vein is patent with no thrombus. CONCLUSIONS No DVT bilateral lower extremities. Dr. Gayle Reyes DO (Electronically Signed) Final Date: 10 February 2021 11:42 S
[2021-02-10] MEDS: famotidine 20 mg/2 mL INJ IVP ×2 (09:11→20:00)
[2021-02-10] MEDS: piperacillin-tazobactam 3.375 GM in dextrose 5% (plus) 50 ML IV ×2 (09:11→16:59)
[2021-02-10] MEDS: gabapentin 400 mg Capsule 800 MG PO ×2 (09:50→17:51)
[2021-02-10] MEDS: topiramate 25 mg Tablet 50 MG PO ×2 (09:51→17:50)
[2021-02-10] MEDS: cetirizine 10 mg Tablet PO (09:51)
[2021-02-10] MEDS: sertraline 50 mg Tablet 75 MG PO (09:51)
[2021-02-10] MEDS: potassium chloride premix 100 ML 25 MEQ IV (09:53)
--- NOTE | 2021-02-10 10:12 | PC.CHAP ---
Pastoral Care Encounter/Spiritual Assessment Type of Contact [] Declined security support analyst visit [] Patient/Family/Request visit [] Outpatient visit [] Follow-up visit [] Physician referral [] Code/Alert [x] Routine visit [] Staff referral [] Actively dying [] Patient sleeping [] Family support [] [] Out of room [] Palliative care [] [x] Receiving care in room [] Pre-surgical visit [] Trauma [] Long length of stay [x] ICU visit [x] Other: ox. 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 Operator Interventions [x] Prayer [] Active listening [] Non-anxious presence [] Spiritual/emotional support [] Crisis/trauma care [] Spiritual counseling [] Bereavement support [] Provided bereavement packet [] Provided Bible/devotional materials [] Provided toy/stuffed animal, coloring book to patient or family member [] Provided Communion [] Anointing/[place] [] Salvation [x] Completed spiritual assessment [] Other: Impact on Illness or Injury [] Angry [] Fearful [] Anxious [] Often cries [] Exhaustion [] Unable to work [] Unable to attend anabaptism [] Unable to walk/stand [] Unable to read [] Unable to drive [] Unable to eat/drink [] Unable to sleep [] Unable to be with family [] Patient intubated [] Other: Summary Time spent with patient
[2021-02-10 11:40] LABS: Glucose Point of Care 107 mg/dL (70-110)
[2021-02-10] MEDS: dexmedetomidine 400 MCG in sodium chloride 0.9% (100 ml) 100 ML 15.24 MCG IV (16:11)
[2021-02-10 16:49] LABS: Glucose Point of Care 122 mg/dL (70-110)
[2021-02-10] MEDS: tizanidine 4 mg Tablet PO (20:00)
[2021-02-10] MEDS: gabapentin 400 mg Capsule 1600 MG PO (20:00)
[2021-02-10] MEDS: trazodone 100 mg Tablet 200 MG PO (20:00)
--- NOTE | 2021-02-10 21:27 | PC.NURSE ---
Patient placed on NRB 15L and heated high flow 45L/80% at 1949, tolerating well. Patient following commands at that time. At 2044 patient removed all of her breathing devices(NRB and heated high flow), oxygen went down to 52%, RR 40-50, cyanotic face, labored with accessory muscles while trying to get out of bed. Patient immediately placed back on bipap 100%, oxygen sats slowly increased to >88. Patient reoriented, reeducated on importance of oxygen and keeping equipment on, reassured of safety, patient repositioned for comfort. Patient at this time O2 sat 98, RR 37, breathing nonlabored equal breaths at this time.
[2021-02-10 21:55] LABS: Glucose Point of Care 120 mg/dL (70-110)
[2021-02-11] VITALS (56 sets, daily range): BP systolic 102–153; BP diastolic 56–101; PULSE 45–121; RESP 0–48; TEMP 37.1–37.6; O2SAT 80–100
[2021-02-11] MEDS: piperacillin-tazobactam 3.375 GM in dextrose 5% (plus) 50 ML IV ×4 (00:08→23:13)
[2021-02-11] MEDS: dexmedetomidine 400 MCG in sodium chloride 0.9% (100 ml) 100 ML 15.24 MCG IV (00:09)
--- NOTE | 2021-02-11 00:32 | PC.NURSE ---
Patient states I dont want this anymore, I want you to take this mask off already Patient educated on importance of bipap and oxygen at this time, and taking it off her oxygen sats would drop dramatically. Patient states i dont care, I can Dr Brizuela notified of patient statements and wanting to change code status. Dr Brizuela states she can talk to Dr Fisher since they have previously communicated about code status in the morning No new orders placed at this time by Dr Brizuela.
[2021-02-11] MEDS: tizanidine 4 mg Tablet PO (03:42)
[2021-02-11 03:47] LABS: Glucose Point of Care 128 mg/dL (70-110)
[2021-02-11 03:51] LABS: Basophils % 0.3 %; Eosinophils # 0.2 10^3/uL (0.0-0.8); Hematocrit 43.9 % (37.0-47.0); Hemoglobin 15.3 g/dL (11.5-15.3); Lymphocytes # 0.7 10^3/uL (0.8-4.8); Lymphocytes % 6.1 %; Mean Corpuscular HGB Conc 34.9 g/dL (30.0-36.0); Monocytes # 0.3 10^3/uL (0.2-0.9); Monocytes % 2.7 %; Neutrophils # 10.23 10^3/uL (1.8-7.7); Neutrophils % 87.9 %; Nucleated Red Blood Cells % 0 %; Platelet Count 164 10^3/cmm (130-400); Red Blood Count 4.93 10^6/uL (4.1-5.3); Red Cell Distribution Width 13.4 % (12.1-15.1); White Blood Count 11.6 10^3/uL (4.0-10.0)
[2021-02-11 04:37] LABS: Alanine Aminotransferase 20 U/L (0-33); Albumin Level 2.8 g/dL (3.5-5.2); Alkaline Phosphatase 128 IU/L (35-105); Anion Gap 23.2 (5-19); Aspartate Amino Transferase 31 U/L (0-32); Carbon Dioxide 22 mmol/L (22-29); Chloride 104 mmol/L (98-107); Globulin 2.6 g/dL (1.3-4.6); Glucose 132 mg/dL (65-115); Potassium 3.2 mmol/L (3.5-5.1); Sodium 146 mmol/L (136-145); Total Protein 5.4 g/dL (6.6-8.7)
[2021-02-11 05:01] LABS: D Dimer >= 20.00 ug/mIFEU (0-0.59)
[2021-02-11 05:05] LABS: Blood Urea Nitrogen 15 mg/dL (6-20); Calcium 8.5 mg/dL (8.5-10.5); Glomerular Filtration Rate 130.1 mL/min (90-130); Osmolality Calculated 305 mOsm/kg (285-295); Total Bilirubin 0.6 mg/dL (0.15-1.2)
--- NOTE | 2021-02-11 05:41 | NUR.SHIFT ---
Patient had several episodes of agitation and removal of her bipap. When bipap removed patient oxygen sat would drop to 40-60%, increased respirations 40s-50s, cyanotic, and labored breathing. Patient made statements such as yelling DNR, DNR , DNR to nurse and get this off, dont need this Physician notified overnight of patient wishes to end treatment and change code status. No changes made by physician at this time. Precedex titrated as needed to tolerate bipap and for agitation. Santino() updated of patient conditions. Patient educated on importance of oxygen, medical devices, and medication.
[2021-02-11] MEDS: enoxaparin 40 mg/0.4 mL Syringe SUBCUT (06:00)
[2021-02-11] MEDS: dexamethasone 10 mg/mL INJ 3 MG IVP (06:00)
[2021-02-11] MEDS: dexmedetomidine 400 MCG in sodium chloride 0.9% (100 ml) 100 ML 30.47 MCG IV (06:01)
[2021-02-11] MEDS: famotidine 20 mg/2 mL INJ IVP ×2 (07:58→20:11)
[2021-02-11] MEDS: sertraline 50 mg Tablet 75 MG PO (08:18)
[2021-02-11] MEDS: gabapentin 400 mg Capsule 800 MG PO ×2 (08:18→17:16)
[2021-02-11] MEDS: topiramate 25 mg Tablet 50 MG PO ×2 (08:18→17:16)
[2021-02-11] MEDS: cetirizine 10 mg Tablet PO (08:18)
[2021-02-11] MEDS: chlorhexidine gluconate 0.12% Btl 473 mL 15 ML MUCOUS MEM ×2 (08:18→17:16)
[2021-02-11] MEDS: lidocaine 1% 5 ML in potassium chloride premix 100 ML 50 ML IV (09:04)
[2021-02-11 10:13] LABS: Glucose Point of Care 148 mg/dL (70-110)
[2021-02-11] MEDS: insulin lispro 100 unit/1 mL SUBCUT ×3 (10:17→22:37)
[2021-02-11] MEDS: insulin glargine 100 units/1 mL 60 UNIT SUBCUT ×2 (10:19→22:41)
--- NOTE | 2021-02-11 10:45 | XR_ITS ---
WS: [id number] Portable AP semiupright chest, 02/11/2021 Clinical Data: hypoxia Comparison: Portable chest, 02/08/2021. Findings: The endotracheal tube and nasogastric tube have been removed. The left internal jugular alea ous catheter remains in the same position. The heart is enlarged. The bilateral pulmonary opacities h ave not changed. Monitor leads are on the chest wall. XR/XR chest 1V portable [id number] Impression: 1. Removal of endotracheal tube and nasogastric tube. 2. No change in bilateral pulmonary opacities.
--- NOTE | 2021-02-11 11:24 | PM.PN ---
Subjective Subjective: Interval history: She had a difficult night. Oxygenation requirement increased. She pulled off her BiPAP mask also and desaturated. Was restarted on fentanyl infusion overnight. This morning lethargic during my visit on 100% BiPAP, saturation 86-88%. Fentanyl weaned off. Later waking up, on BiPAP, waking up, saturation increasing up to the high 90s. Cooperating with BiPAP. Vitals/I&O/Wt Last Vital Signs Temp 98.8 F 02/11/21 07:00 Pulse 50 L 02/11/21 11:21 Resp 32 H 02/11/21 09:00 BP 126/71 02/11/21 09:00 Pulse Ox 96 02/11/21 11:21 02/10/21 02/11/21 02/11/21 22:59 06:59 14:59 Intake Total 88.367 / 300.742 258.000 / 558.742 147.958 / 147.958 Output Total 600 / 600 650 / 1250 Balance -511.633 / -299.258 -392.000 / -691.258 147.958 / 147.958 Weight last 48 hrs Weight 118.529 kg Weight 118.047 kg Physical Exam Narrative: EXAM NARRATIVE: BiPAP Const: COMMON NORMALS: no acute distress GENERAL APPEARANCE: lethargic NUTRITIONAL APPEARANCE: obese morbidly obese ORIENTATION/CONSCIOUSNESS: Yes confused and Yes lethargic HENMT: COMMON NORMALS: oropharynx normal Neck/C-Spine: COMMON NORMALS: no JVD Resp: COMMON NORMALS: clear to auscultation bilaterally AUSCULTATION: clear to auscultation bilaterally Cardio: COMMON NORMALS: no JVD, regular rhythm and No murmurs present (Cardio) RATE: bradycardic RHYTHM: regular rhythm GI: COMMON NORMALS: Normal to inspection, nondistended, normoactive bowel sounds present, Soft to palpation and non-tender PALPATION: Yes Soft to palpation Extremity: COMMON NORMALS: no joint enlargement and no pedal edema Neuro: COMMON NORMALS: moves all extremities SENSORIUM/ORIENTATION: Yes lethargic Skin: COMMON NORMALS: no rashes or lesions noted GENERAL SKIN EXAM: no rashes or lesions noted Urinary Catheter Management^: Yo: Cath Placed During This Visit: yes Reason for Continuing Indwelling Catheter: Accurate Measurement of Urinary Output in Critically Ill Patients Urinary Catheter Date of Insertion: 02/04/21 Urinary Catheter Time of Insertion: 03:15 Data : 02/11/21 03:40 02/11/21 03:40 A&P Assessment and plan (1) Acute respiratory failure with hypoxia: Her difficult night, lower extractions morning. BiPAP on high percent oxygen. Saturations still soft. Lethargic overnight. Weaned off fentanyl. Discussed with her need for reintubation, mechanical inhalation given worsening respiratory condition, however, shortly for a conversation he spoke with ICU floor, and she has shown some improvement, on the same BiPAP settings, but waking up, saturating 97%, cooperating with BiPAP. He wants to hold off on reintubation for now. Discussed with him reintubation if needed would have to be done with anesthesia given difficult admission the last time. Discussed high risk of intubation with risk of desaturation, high risk of complication and . Discussed that we may still likely be looking for need for intubation with fluctuating course of illness and difficult course so far. He states understands and wants to proceed. Discussed also her prior statements about wanting to return home, not continue care, however, as per discussion previously, does not appear she was fully back to herself, does not appear she was fully comprehending her situation and consequences. states she was pretty confused last time they spoke also. He is going to come visit her spend time with her today as well. He understands that in case she were to be lucid, understanding her condition and consequences, and expressed wishes of discontinuation of care and switching to comfort we would proceed according to her wishes. We discussed also regarding potential need for tracheostomy and feeding tube in case of reintubation. We discussed also regarding increased D-dimer to very high values this morning. Discussed negative duplex yesterday, however, elevated risk of VTE in the setting of COVID-19. Discussed consideration of additional assessment, which at this time would not be safe trying to go to CT scanner. Discussed option of escalation to full dose anticoagulation. Clear at this time until additional assessment can be obtained. Discussed risk of bleeding, risk of bleeding also given brain tumor. would like to escalate therapy at this time empirically. Repeat chest x-ray. reported she is severely claustrophobic as well. reports also history of brain tumor for which she was being followed in [place] prior to moving here. Resumed home gabapentin, Topamax, sertraline, trazodone, tizanidine, Zyrtec. Cut down dose of Decadron to 3mg. Continue antibiotic which should provide coverage in case staph aureus is pathogenic, although has not so far had symptoms of focal bacterial pneumonia. No Propofol due to hypertriglyceridemia. -Completed remdesivir -Status post 1 dose Actemra Sputum culture growing Staphylococcus aureus. -Continue broad-spectrum antibiotic therapy with Zosyn, linezolid -Central line in place -Lovenox 40 mg twice daily -Pepcid for GI prophylaxis Status: Acute (2) Severe sepsis with septic shock: Status: Acute (3) Pneumonia due to COVID-19 virus: Status: Acute (4) Hypernatremia: Improving Monitor sodium. Status: Acute (5) Lactic acidosis: As above Status: Acute (6) Acute kidney injury: As above Status: Acute (7) Diabetes: Lantus, sliding scale Status: Acute (8) Acute metabolic encephalopathy due to hypoglycemia: Resolving. Status: Acute (9) Acute respiratory distress syndrome: Status: Acute (10) Diabetic ketoacidosis: Resolved Status: Acute (11) Acute respiratory distress syndrome (ARDS) due to 2019 novel coronavirus: Status: Acute (12) Shock: Status: Acute Additional A&P Information Hypokalemia: Requested additional replacement Rhabdomyolysis: Improving. History of brain tumor: Hospital states [facility] [place] [facility]cessity Statement*: Continue admission for care of hypoxic respiratory failure with severe covid-19. 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
[2021-02-11] MEDS: enoxaparin 60 mg/0.6 mL Syringe SUBCUT (11:49)
[2021-02-11] MEDS: dexmedetomidine 400 MCG in sodium chloride 0.9% (100 ml) 100 ML IV (13:38)
--- NOTE | 2021-02-11 14:40 | PC.NURSE ---
[address] Fisher. Reviewed medications, vital signs, activity, Neuro and respiratory status, and plan of care. Orders to decrease sedating medications in order to improve respiratory function in preparation for increasing activity, out of bed.
[2021-02-11 17:55] LABS: Glucose Point of Care 194 mg/dL (70-110)
--- NOTE | 2021-02-11 19:30 | PC.NURSE ---
Tizanidine Tizanidine held per shift report.
[2021-02-11] MEDS: gabapentin 400 mg Capsule 1600 MG PO (20:10)
[2021-02-11] MEDS: trazodone 100 mg Tablet 200 MG PO (20:11)
--- NOTE | 2021-02-11 20:30 | PC.NURSE ---
Desaturation/BIPAP Use At start of shift patient up to chair and stated wish to go back to bed. [id number] brought to unit to assist patient in transfer. Upon using machine, patient's oxygen saturation decreased rapidly, as low as 59%, while on oxymask and heated high flow. Patient transferred to bed and RT called to bedside. BIPAP use with 100% FIO2 initiated. Patient's oxygen saturation increased to high 90s. About 30 minutes later, RT titrated FIO2 down to 85%. Patient's oxygen saturation remains in low-mid 90s. All other vital signs stable.
[2021-02-11 22:34] LABS: Glucose Point of Care 183 mg/dL (70-110)
[2021-02-11] MEDS: enoxaparin 120 mg/0.8 mL Syringe SUBCUT (22:37)
--- NOTE | 2021-02-11 22:51 | PC.NURSE ---
Family Update , Lenard Martin, called and received update on patient status, including the need for BIPAP use. verbalized understanding. Patient notified of family call.
[2021-02-12] VITALS (72 sets, daily range): BP systolic 78–176; BP diastolic 42–117; PULSE 69–120; RESP 20–72; TEMP 36.9–38.7; O2SAT 44–96; BMI 47.8
[2021-02-12 03:47] LABS: Basophils % 0.2 %; Eosinophils # 0.2 10^3/uL (0.0-0.8); Eosinophils % 0.9 %; Hematocrit 44.4 % (37.0-47.0); Lymphocytes # 0.8 10^3/uL (0.8-4.8); Lymphocytes % 4.6 %; Mean Corpuscular HGB Conc 33.8 g/dL (30.0-36.0); Mean Corpuscular Hemoglobin 30.4 pg (28.0-34.0); Mean Corpuscular Volume 90.1 fl (81-99); Mean Platelet Volume 11.4 fL (7.4-10.4); Monocytes # 0.6 10^3/uL (0.2-0.9); Monocytes % 3.6 %; Neutrophils # 14.86 10^3/uL (1.8-7.7); Neutrophils % 89.8 %; Nucleated Red Blood Cells % 0 %; Platelet Count 136 10^3/cmm (130-400); Red Blood Count 4.93 10^6/uL (4.1-5.3); Red Cell Distribution Width 13.6 % (12.1-15.1); White Blood Count 16.6 10^3/uL (4.0-10.0)
--- NOTE | 2021-02-12 03:52 | PC.NURSE ---
Interdry Interdry applied to groin area. Education provided to patient as to indication and use of material.
[2021-02-12 04:07] LABS: Alanine Aminotransferase 14 U/L (0-33); Alkaline Phosphatase 142 IU/L (35-105); Anion Gap 20.8 (5-19); Aspartate Amino Transferase 23 U/L (0-32); Blood Urea Nitrogen 10 mg/dL (6-20); Calcium 8.5 mg/dL (8.5-10.5); Carbon Dioxide 25 mmol/L (22-29); Chloride 103 mmol/L (98-107); Globulin 2.9 g/dL (1.3-4.6); Glomerular Filtration Rate 130.1 mL/min (90-130); Glucose 155 mg/dL (65-115); Osmolality Calculated 304 mOsm/kg (285-295); Sodium 146 mmol/L (136-145); Total Bilirubin 0.6 mg/dL (0.15-1.2); Total Protein 5.9 g/dL (6.6-8.7)
[2021-02-12 04:19] LABS: Glucose Point of Care 153 mg/dL (70-110)
[2021-02-12 04:19] LABS: Potassium 2.8 mmol/L (3.5-5.1)
--- NOTE | 2021-02-12 04:41 | PC.NURSE ---
Physician Communication Dr. Brizuela notified of patient potassium level of 2.8, rash in the groin area, and fever of 101.6F. Orders received for Nystatin powder, 40 mEq KCL IV once, and tylenol 650 mg Q6 PRN. Orders carried out per MAY.
[2021-02-12] MEDS: insulin lispro 100 unit/1 mL SUBCUT ×2 (05:05→10:55)
[2021-02-12] MEDS: lidocaine 1% 5 ML in potassium chloride premix 100 ML 25 ML IV (05:05)
[2021-02-12] MEDS: dexamethasone 10 mg/mL INJ 3 MG IVP (05:06)
[2021-02-12] MEDS: acetaminophen 325 mg Tablet 650 MG PO (05:06)
[2021-02-12] MEDS: nystatin powder 15 gm Btl 1 APPLIC TOPICAL (06:05)
--- NOTE | 2021-02-12 06:26 | PC.NURSE ---
Shift Note Frequent safety and comfort rounds continue. Orders and/or nursing care completed as indicated. Patient monitored for response to intervention and treatment(s). Education provided includes use of nystatin, BIPAP use, oxygen saturation, fever/acetaminophen, potassium levels, and treatment plan goals. Patient verbalized understanding. Will continue to monitor.
--- NOTE | 2021-02-12 07:28 | W.ED.AMS ---
HPI - Altered Mental Status General: Chief Complaint: Altered Mental Status Stated Complaint: HIGH BLOOD SUGAR Time Seen by Provider: 02/04/21 02:32 Source: patient and EMS Mode of arrival: EMS Limitations: altered mental status Physical Exam Urinary Catheter Management^: Yo: Cath Placed During This Visit: yes Reason for Continuing Indwelling Catheter: Accurate Measurement of Urinary Output in Critically Ill Patients Urinary Catheter Date of Insertion: 02/04/21 Urinary Catheter Time of Insertion: 03:15 Course Vital Signs: Vital signs: Vital Signs Temperature 100.1 F H 02/12/21 06:00 Pulse Rate 107 H 02/12/21 06:00 Respiratory Rate 29 H 02/12/21 06:00 Blood Pressure 143/61 02/12/21 06:00 Pulse Oximetry 93 02/12/21 06:00 MDM - Altered Mental Status MDM Narrative: Medical decision making narrative: This note is meant to be a brief events noted. Patient is hospitalized in the ICU due to Covid and had an episode of hypoxia. I was asked to come evaluate her at bedside. Upon arrival she was satting in the 80s despite being bagged on 100% oxygen with blow-by. However patient is awake alert and oriented and is adamant that she is DNI and does not want to be intubated. Extensive discussion about risks with had. Patient is adamant she does not want intubated and at this time I do not believe she is altered and I do believe she has capacity to make this decision. Lab Data: Labs: Lab Results 02/04/21 02/04/21 02/04/21 02:36 02:50 02:50 WBC 8.0 10^3/uL 10^3/ uL (4.0-10.0) RBC 5.36 10^6/uL H 10 ^6/uL (4.1-5.3) Hgb 16.4 g/dL H g/dL (11.5-15.3) Hct 48.6 % H % (37.0-47.0) MCV 90.7 fl fl (81-99) MCH 30.6 pg pg (28.0-34.0) MCHC 33.7 g/dL g/dL (30.0-36.0) RDW 13.4 % % (12.1-15.1) Plt Count 343 10^3/cmm 10^3 /cmm (130-400) MPV 10.9 fL H fL (7.4-10.4) Neut % (Auto) 79.8 % % Lymph % (Auto) 14.6 % % [place] % (Auto) 3.2 % % Eos % (Auto) 0.0 % % Baso % (Auto) 0.2 % % Neut # (Auto) 6.41 10^3/uL 10^3 /uL (1.8-7.7) Lymph # (Auto) 1.2 10^3/uL 10^3/ uL (0.8-4.8) [place] # (Auto) 0.3 10^3/uL 10^3/ uL (0.2-0.9) Eos # (Auto) 0.0 10^3/uL 10^3/ uL (0.0-0.8) Baso # (Auto) 0.0 10^3/uL 10^3/ uL (0.0-0.1) Nucleated RBC % (a uto) 0 % % Nucleated RBCs # 0.0 /100WBC /100W BC PT 13.00 SECONDS SEC ONDS (12.1-14.9) INR 0.96 (0.8-1.2) D-Dimer Specimen Type Sample Site ABG pH ABG pCO2 ABG pO2 ABG HCO3 ABG Base Excess Bam Test Hematocrit O2 Delivery Device FiO2 Vector Control Assistant ID Sodium Potassium Chloride Carbon Dioxide Anion Gap BUN Creatinine GFR Calculation Glucose POC Glucose 331 mg/dL H mg/dL (70-110) Calculated Osmolal ity Lactic Acid Lactate Calcium Magnesium Total Bilirubin AST ALT Alkaline Phosphata se Troponin T Baselin e Troponin T 120 Min [place] Troponin T C-Reactive Protein NT-Pro-B Natriuret Pep Total Protein Albumin Globulin Procalcitonin TSH Urine Color Urine Appearance Urine pH Ur Specific Gravit y Urine Protein Urine Glucose (UA) Urine Ketones Urine Blood Urine Nitrate Urine Bilirubin Urine Urobilinogen Ur Leukocyte Danae ase Salicylates Urine Opiates Scre en Acetaminophen Ur Barbiturates Sc reen Ur Phencyclidine S crn Ur Amphetamines Sc reen U Benzodiazepines Scrn Urine Cocaine Scre en U Marijuana (THC) Screen Ethyl Alcohol Serum Ketones SARS-CoV-2 Ag (Rap id) 02/04/21 02/04/21 02/04/21 02:50 02:50 02:50 WBC RBC Hgb Hct MCV MCH MCHC RDW Plt Count MPV Neut % (Auto) Lymph % (Auto) [place] % (Auto) Eos % (Auto) Baso % (Auto) Neut # (Auto) Lymph # (Auto) [place] # (Auto) Eos # (Auto) Baso # (Auto) Nucleated RBC % (a uto) Nucleated RBCs # PT INR D-Dimer Specimen Type Sample Site ABG pH ABG pCO2 ABG pO2 ABG HCO3 ABG Base Excess Bam Test Hematocrit O2 Delivery Device FiO2 Vector Control Assistant ID Sodium 140 mmol/L mmol/L (136-145) Potassium 3.7 mmol/L mmol/L (3.5-5.1) Chloride 94 mmol/L L mmol/ L (98-107) Carbon Dioxide 14 mmol/L L mmol/ L (22-29) Anion Gap 35.7 H (5-19) BUN 15 mg/dL mg/dL (6-20) Creatinine 1.0 mg/dL H mg/dL (0.5-0.9) GFR Calculation 58.5 mL/min L mL/ min (90-130) Glucose 334 mg/dL H mg/dL (65-115) POC Glucose Calculated Osmolal ity 304 mOsm/kg H mOs m/kg (285-295) Lactic Acid Lactate Calcium 8.6 mg/dL mg/dL (8.5-10.5) Magnesium 2.2 mg/dL mg/dL (1.7-2.3) Total Bilirubin 0.4 mg/dL mg/dL (0.15-1.2) AST 72 U/L H U/L (0-32) ALT 27 U/L U/L (0-33) Alkaline Phosphata se 110 IU/L H IU/L (35-105) Troponin T Baselin e 16 ng/L H ng/L (0-10) Troponin T 120 Min [place] Troponin T C-Reactive Protein NT-Pro-B Natriuret Pep Total Protein 6.9 g/dL g/dL (6.6-8.7) Albumin 3.4 g/dL L g/dL (3.5-5.2) Globulin 3.5 g/dL g/dL (1.3-4.6) Procalcitonin TSH 0.80 uIU/mL uIU/m L (0.27-4.20) Urine Color Urine Appearance Urine pH Ur Specific Gravit y Urine Protein Urine Glucose (UA) Urine Ketones Urine Blood Urine Nitrate Urine Bilirubin Urine Urobilinogen Ur Leukocyte Danae ase Salicylates < 0.3 mg/dL L mg/ dL (3-10) Urine Opiates Scre en Acetaminophen < 5.0 ug/mL L ug/ mL (10-30) Ur Barbiturates Sc reen Ur Phencyclidine S crn Ur Amphetamines Sc reen U Benzodiazepines Scrn Urine Cocaine Scre en U Marijuana (THC) Screen Ethyl Alcohol < 10 mg/dL mg/dL (0-10) Serum Ketones Negative (Negative) SARS-CoV-2 Ag (Rap id) 02/04/21 02/04/21 02/04/21 02:50 02:50 02:50 WBC RBC Hgb Hct MCV MCH MCHC RDW Plt Count MPV Neut % (Auto) Lymph % (Auto) [place] % (Auto) Eos % (Auto) Baso % (Auto) Neut # (Auto) Lymph # (Auto) [place] # (Auto) Eos # (Auto) Baso # (Auto) Nucleated RBC % (a uto) Nucleated RBCs # PT INR D-Dimer 1.30 ug/mIFEU H u g/mIFEU (0-0.59) Specimen Type Sample Site ABG pH ABG pCO2 ABG pO2 ABG HCO3 ABG Base Excess Bam Test Hematocrit O2 Delivery Device FiO2 Vector Control Assistant ID Sodium Potassium Chloride Carbon Dioxide Anion Gap BUN Creatinine GFR Calculation Glucose POC Glucose Calculated Osmolal ity Lactic Acid Lactate 12.6 mmol/L H* mm ol/L (0.5-2.2) Calcium Magnesium Total Bilirubin AST ALT Alkaline Phosphata se Troponin T Baselin e Troponin T 120 Min [place] Troponin T C-Reactive Protein 121.1 mg/L H mg/L (0.0-4.9) NT-Pro-B Natriuret Pep 2089 pg/mL H pg/m L (0-125) Total Protein Albumin Globulin Procalcitonin TSH Urine Color Urine Appearance Urine pH Ur Specific Gravit y Urine Protein Urine Glucose (UA) Urine Ketones Urine Blood Urine Nitrate Urine Bilirubin Urine Urobilinogen Ur Leukocyte Danae ase Salicylates Urine Opiates Scre en Acetaminophen Ur Barbiturates Sc reen Ur Phencyclidine S crn Ur Amphetamines Sc reen U Benzodiazepines Scrn Urine Cocaine Scre en U Marijuana (THC) Screen Ethyl Alcohol Serum Ketones SARS-CoV-2 Ag (Rap id) 02/04/21 02/04/21 02/04/21 02:50 02:50 03:05 WBC RBC Hgb Hct MCV MCH MCHC RDW Plt Count MPV Neut % (Auto) Lymph % (Auto) [place] % (Auto) Eos % (Auto) Baso % (Auto) Neut # (Auto) Lymph # (Auto) [place] # (Auto) Eos # (Auto) Baso # (Auto) Nucleated RBC % (a uto) Nucleated RBCs # PT INR D-Dimer Specimen Type Arterial Sample Site Radial, right ABG pH 7.34 L (7.35-7.45) ABG pCO2 31.2 mmHg L mmHg (35-45) ABG pO2 54.9 mmHg L mmHg (80.0-100.0) ABG HCO3 16.9 mmol/L L mmo l/L (22-26) ABG Base Excess -7.5 mmol/L L mmo l/L (-2.0-2.0) Bam Test Pos Hematocrit 49.8 % H % (37-47) O2 Delivery Device Bipap FiO2 100.0 % % Vector Control Assistant ID [id number] Sodium Potassium Chloride Carbon Dioxide Anion Gap BUN Creatinine GFR Calculation Glucose POC Glucose Calculated Osmolal ity Lactic Acid Lactate Calcium Magnesium Total Bilirubin AST ALT Alkaline Phosphata se Troponin T Baselin e Troponin T 120 Min [place] Troponin T C-Reactive Protein NT-Pro-B Natriuret Pep Total Protein Albumin Globulin Procalcitonin 0.25 ng/mL ng/mL (0-0.5) TSH Urine Color Urine Appearance Urine pH Ur Specific Gravit y Urine Protein Urine Glucose (UA) Urine Ketones Urine Blood Urine Nitrate Urine Bilirubin Urine Urobilinogen Ur Leukocyte Danae ase Salicylates Urine Opiates Scre en Acetaminophen Ur Barbiturates Sc reen Ur Phencyclidine S crn Ur Amphetamines Sc reen U Benzodiazepines Scrn Urine Cocaine Scre en U Marijuana (THC) Screen Ethyl Alcohol Serum Ketones SARS-CoV-2 Ag (Rap id) Positive H (Negative) 02/04/21 02/04/21 02/04/21 03:15 03:15 04:50 WBC RBC Hgb Hct MCV MCH MCHC RDW Plt Count MPV Neut % (Auto) Lymph % (Auto) [place] % (Auto) Eos % (Auto) Baso % (Auto) Neut # (Auto) Lymph # (Auto) [place] # (Auto) Eos # (Auto) Baso # (Auto) Nucleated RBC % (a uto) Nucleated RBCs # PT INR D-Dimer Specimen Type Sample Site ABG pH ABG pCO2 ABG pO2 ABG HCO3 ABG Base Excess Bam Test Hematocrit O2 Delivery Device FiO2 Vector Control Assistant ID Sodium Potassium Chloride Carbon Dioxide Anion Gap BUN Creatinine GFR Calculation Glucose POC Glucose Calculated Osmolal ity Lactic Acid Lactate Calcium Magnesium Total Bilirubin AST ALT Alkaline Phosphata se Troponin T Baselin e Troponin T 120 Min [place] 20.22 ng/L H ng/L (0-10) [place] Troponin T 4.22 ABS# ABS# (0-10) C-Reactive Protein NT-Pro-B Natriuret Pep Total Protein Albumin Globulin Procalcitonin TSH Urine Color Yellow (Yellow) Urine Appearance Clear (CLEAR) Urine pH 5 (5-7) Ur Specific Gravit y 1.015 (1.005-1.030) Urine Protein Neg (Negative) Urine Glucose (UA) 4+ H (Normal) Urine Ketones 1+ H (Negative) Urine Blood Neg (Negative) Urine Nitrate Negative (Negative) Urine Bilirubin Neg (Negative) Urine Urobilinogen Norm mg/dL mg/dL (Negative) Ur Leukocyte Danae ase Negative (Negative) Salicylates Urine Opiates Scre en Negative ng/mL ng /mL (Negative) Acetaminophen Ur Barbiturates Sc reen Negative ng/mL ng /mL (Negative) Ur Phencyclidine S crn Negative ng/mL ng /mL (Negative) Ur Amphetamines Sc reen Negative ng/mL ng /mL (Negative) U Benzodiazepines Scrn Negative ng/mL ng /mL (Negative) Urine Cocaine Scre en Negative ng/mL ng /mL (Negative) U Marijuana (THC) Screen Positive ng/mL H ng/mL (Negative) Ethyl Alcohol Serum Ketones SARS-CoV-2 Ag (Rap id) 02/04/21 05:45 WBC RBC Hgb Hct MCV MCH MCHC RDW Plt Count MPV Neut % (Auto) Lymph % (Auto) [place] % (Auto) Eos % (Auto) Baso % (Auto) Neut # (Auto) Lymph # (Auto) [place] # (Auto) Eos # (Auto) Baso # (Auto) Nucleated RBC % (a uto) Nucleated RBCs # PT INR D-Dimer Specimen Type Sample Site ABG pH ABG pCO2 ABG pO2 ABG HCO3 ABG Base Excess Bam Test Hematocrit O2 Delivery Device FiO2 Vector Control Assistant ID Sodium Potassium Chloride Carbon Dioxide Anion Gap BUN Creatinine GFR Calculation Glucose POC Glucose Calculated Osmolal ity Lactic Acid 4.1 mmol/L H* mmo l/L (0.5-2.2) Lactate Calcium Magnesium Total Bilirubin AST ALT Alkaline Phosphata se Troponin T Baselin e Troponin T 120 Min [place] Troponin T C-Reactive Protein NT-Pro-B Natriuret Pep Total Protein Albumin Globulin Procalcitonin TSH Urine Color Urine Appearance Urine pH Ur Specific Gravit y Urine Protein Urine Glucose (UA) Urine Ketones Urine Blood Urine Nitrate Urine Bilirubin Urine Urobilinogen Ur Leukocyte Danae ase Salicylates Urine Opiates Scre en Acetaminophen Ur Barbiturates Sc reen Ur Phencyclidine S crn Ur Amphetamines Sc reen U Benzodiazepines Scrn Urine Cocaine Scre en U Marijuana (THC) Screen Ethyl Alcohol Serum Ketones SARS-CoV-2 Ag (Rap id) Discharge Plan Discharge Patient Disposition: Admitted As Inpatient Admit Provider: Owen Brizuela Coding Level of Care Code ED Periodicals Clerk for [facility] Marilynn
[2021-02-12] MEDS: famotidine 20 mg/2 mL INJ IVP ×2 (07:44→20:30)
[2021-02-12] MEDS: piperacillin-tazobactam 3.375 GM in dextrose 5% (plus) 50 ML IV ×2 (07:45→15:01)
--- NOTE | 2021-02-12 08:14 | PC.NURSE ---
0715 On am rounds patient found unresponsive with low O2 sats. Immediately began to bag patient. Charge nurse called to bedside. Dr. Fisher notified. ER physician called to bedside for possible intubation. Patient's O2 sats improved and patient was alert and oriented. Patient refused intubation. Dr. Fisher notified, states he will talk with patient and her to make code status decisions.
[2021-02-12] MEDS: cetirizine 10 mg Tablet PO (08:52)
[2021-02-12] MEDS: chlorhexidine gluconate 0.12% Btl 473 mL 15 ML MUCOUS MEM ×2 (08:52→18:06)
[2021-02-12] MEDS: topiramate 25 mg Tablet 50 MG PO ×2 (08:52→18:05)
[2021-02-12] MEDS: sertraline 50 mg Tablet 75 MG PO (08:52)
[2021-02-12] MEDS: gabapentin 400 mg Capsule 800 MG PO ×2 (08:52→18:05)
[2021-02-12] MEDS: insulin glargine 100 units/1 mL 60 UNIT SUBCUT (10:57)
[2021-02-12] MEDS: enoxaparin 120 mg/0.8 mL Syringe SUBCUT (10:58)
[2021-02-12 12:03] LABS: Glucose Point of Care 173 mg/dL (70-110)
[2021-02-12] MEDS: morphine 4 mg/mL SDV 1 mL 2 MG IVP (15:22)
--- NOTE | 2021-02-12 16:36 | PM.PN ---
Subjective Subjective: Interval history: Early this morning BiPAP tubing it popped off, and she immediately desaturated down to as low as 45%. To be reconnected. At the time intubation with mechanical ventilation was considered, however, she had declined. Her condition gradually improved, with saturation rising up into the 90s on continued BiPAP support with 100% FiO2. During meeting today with her and her further goals of care discussions, and careful consideration she states that in case of episode last resort she would allow to be intubated, mechanically ventilated, although in case of cardiac arrest would not want to receive CPR. She is okay with continuing current care. She is requesting for something to eat. Discussed with her at this time she would be unable to able to be off BiPAP long enough to have regular consistency diet, however, with understanding that even this is a rather dangerous endeavor currently, at times normally can be made for protein shakes with a straw with long breaks between to make sure saturation is returning. She would also like some M[place] ice. Discussed consideration of NG tube with possible enteric feeding, however, she declines. is present during discussions and is supportive of her wishes. Vitals/I&O/Wt Last Vital Signs Temp 99.6 F 02/12/21 08:00 Pulse 82 02/12/21 16:08 Resp 24 H 02/12/21 15:22 BP 155/82 02/12/21 14:00 Pulse Ox 89 L 02/12/21 16:08 02/12/21 02/12/21 02/12/21 06:59 14:59 22:59 Intake Total 830 / 1861.528 290 / 290 Output Total 900 / 1550 325 / 325 Balance -70 / 311.528 -35 / -35 Weight last 48 hrs Weight 122.515 kg Weight 118.529 kg Physical Exam Narrative: EXAM NARRATIVE: BiPAP Const: COMMON NORMALS: no acute distress GENERAL APPEARANCE: lethargic NUTRITIONAL APPEARANCE: obese morbidly obese ORIENTATION/CONSCIOUSNESS: Yes confused and Yes lethargic OTHER: Awake HENMT: COMMON NORMALS: oropharynx normal Neck/C-Spine: COMMON NORMALS: no JVD Resp: COMMON NORMALS: clear to auscultation bilaterally AUSCULTATION: clear to auscultation bilaterally Cardio: COMMON NORMALS: no JVD, regular rhythm and No murmurs present (Cardio) RATE: bradycardic RHYTHM: regular rhythm GI: COMMON NORMALS: Normal to inspection, nondistended, normoactive bowel sounds present, Soft to palpation and non-tender PALPATION: Yes Soft to palpation Extremity: COMMON NORMALS: no joint enlargement and no pedal edema Neuro: COMMON NORMALS: moves all extremities SENSORIUM/ORIENTATION: Yes lethargic Skin: COMMON NORMALS: no rashes or lesions noted GENERAL SKIN EXAM: no rashes or lesions noted Urinary Catheter Management^: Yo: Cath Placed During This Visit: yes Reason for Continuing Indwelling Catheter: Accurate Measurement of Urinary Output in Critically Ill Patients Urinary Catheter Date of Insertion: 02/04/21 Urinary Catheter Time of Insertion: 03:15 Data : 02/12/21 03:10 02/12/21 03:10 A&P Assessment and plan (1) Acute respiratory failure with hypoxia: Currently she has been doing somewhat better, saturation up into the 90s after morning episodes of desaturation (as above), but on her percent BiPAP. Additional goals per discussion as per above. Would allow/fine acceptable intubation, conclusion only as a last resort. He is okay with continue BiPAP at this time. Requesting for some oral intake. Continue Decadron at this time. Her mental status has been doing well. Continue full dose anticoagulation until able to obtain further imaging assessment to exclude PE. Repeated chest x-ray yesterday, with unchanged bilateral pulmonary opacities. Continue Zosyn. Leukocytosis with worsening today. Will for now resume linezolid. Blood cultures from central line. Repeat chest x-ray in the morning. reported she is severely claustrophobic as well. reports also history of brain tumor for which she was being followed in [place] prior to moving here. Resumed home gabapentin, Topamax, sertraline, trazodone, tizanidine, Zyrtec. Avoid propofol due to hypertriglyceridemia. -Completed remdesivir -Status post 1 dose Actemra Sputum culture growing Staphylococcus aureus. -Continue broad-spectrum antibiotic therapy with Zosyn, linezolid -Central line in place -Lovenox 40 mg twice daily -Pepcid for GI prophylaxis Status: Acute (2) Severe sepsis with septic shock: Status: Acute (3) Pneumonia due to COVID-19 virus: Status: Acute (4) Hypernatremia: Improving Monitor sodium. Status: Acute (5) Lactic acidosis: As above Status: Acute (6) Acute kidney injury: As above Status: Acute (7) Diabetes: Lantus, sliding scale Status: Acute (8) Acute metabolic encephalopathy due to hypoglycemia: Resolving. Status: Acute (9) Acute respiratory distress syndrome: Status: Acute (10) Diabetic ketoacidosis: Resolved Status: Acute (11) Acute respiratory distress syndrome (ARDS) due to 2019 novel coronavirus: Status: Acute (12) Shock: Status: Acute Additional A&P Information Hypokalemia: Received replacement this morning. Recheck level. Rhabdomyolysis: Improving. History of brain tumor: Hospital states she had been followed in [place] Attestations Medical Necessity Statement*: Continue admission for assessment management of hypoxic respite failure secondary to severe COVID-19. Coding Level of Care Code Acute Senior Asset Manager for [facility] Fwd Exam Comprehensive Diagnoses Acute respiratory failure with hypoxia J96.01 Severe sepsis with septic shock A41.9; R65.21 Pneumonia due to COVID-19 virus U07.1; J12.82 Hypernatremia E87.0 Lactic acidosis E87.2 Acute kidney injury N17.9 Diabetes E11.9 Acute metabolic encephalopathy due to hypoglycemia G93.41; E16.2 Acute respiratory distress syndrome J80 Diabetic ketoacidosis E11.10 Acute respiratory distress syndrome (ARDS) due to 2019 novel coronavirus U07.1; J80 Shock R57.9
[2021-02-12 18:09] LABS: Potassium 3.2 mmol/L (3.5-5.1)
[2021-02-12] MEDS: linezolid premix 600 MG/300 ML PREMIX 300 MG IV (18:51)
[2021-02-12 19:47] LABS: Glucose Point of Care 122 mg/dL (70-110)
[2021-02-12] MEDS: tizanidine 4 mg Tablet PO (20:30)
[2021-02-12] MEDS: trazodone 100 mg Tablet 200 MG PO (20:30)
[2021-02-12] MEDS: gabapentin 400 mg Capsule 1600 MG PO (20:30)
[2021-02-13] VITALS (73 sets, daily range): BP systolic 84–197; BP diastolic 37–108; PULSE 54–126; RESP 16–39; TEMP 36.6–37.8; O2SAT 77–93
[2021-02-13] MEDS: piperacillin-tazobactam 3.375 GM in dextrose 5% (plus) 50 ML IV ×3 (00:18→15:29)
[2021-02-13] MEDS: enoxaparin 120 mg/0.8 mL Syringe SUBCUT ×2 (00:18→12:22)
[2021-02-13 00:47] LABS: Glucose Point of Care 101 mg/dL (70-110)
[2021-02-13] MEDS: tizanidine 4 mg Tablet PO ×2 (03:33→20:10)
[2021-02-13 04:15] LABS: Basophils % 0.2 %; Eosinophils # 0.5 10^3/uL (0.0-0.8); Eosinophils % 3.9 %; Hematocrit 40.4 % (37.0-47.0); Hemoglobin 13.2 g/dL (11.5-15.3); Lymphocytes # 0.9 10^3/uL (0.8-4.8); Lymphocytes % 7.8 %; Mean Corpuscular HGB Conc 32.7 g/dL (30.0-36.0); Mean Corpuscular Hemoglobin 30.4 pg (28.0-34.0); Mean Corpuscular Volume 93.1 fl (81-99); Mean Platelet Volume 12.4 fL (7.4-10.4); Monocytes # 0.4 10^3/uL (0.2-0.9); Monocytes % 3.7 %; Neutrophils # 9.97 10^3/uL (1.8-7.7); Neutrophils % 83.6 %; Nucleated Red Blood Cells % 0 %; Platelet Count 132 10^3/cmm (130-400); Red Blood Count 4.34 10^6/uL (4.1-5.3); Red Cell Distribution Width 14.2 % (12.1-15.1); White Blood Count 11.9 10^3/uL (4.0-10.0)
[2021-02-13] MEDS: morphine 4 mg/mL SDV 1 mL 2 MG IVP ×2 (04:37→09:33)
[2021-02-13 04:41] LABS: Alanine Aminotransferase 11 U/L (0-33); Albumin Level 2.7 g/dL (3.5-5.2); Alkaline Phosphatase 94 IU/L (35-105); Anion Gap 13.8 (5-19); Aspartate Amino Transferase 22 U/L (0-32); Blood Urea Nitrogen 10 mg/dL (6-20); Carbon Dioxide 29 mmol/L (22-29); Chloride 104 mmol/L (98-107); Globulin 2.6 g/dL (1.3-4.6); Glomerular Filtration Rate 130.1 mL/min (90-130); Glucose 68 mg/dL (65-115); Osmolality Calculated 295 mOsm/kg (285-295); Sodium 144 mmol/L (136-145); Total Bilirubin 0.5 mg/dL (0.15-1.2); Total Protein 5.3 g/dL (6.6-8.7)
[2021-02-13] MEDS: dextrose 50% syringe 50 mL IVP (04:44)
[2021-02-13 04:56] LABS: Potassium 2.8 mmol/L (3.5-5.1)
[2021-02-13] MEDS: dexamethasone 10 mg/mL INJ 3 MG IVP (05:03)
[2021-02-13] MEDS: dextrose 5%-sod chloride 0.45% 1,000 ML 50 ML IV (05:04)
[2021-02-13 05:08] LABS: Glucose Point of Care 49 mg/dL (70-110)
[2021-02-13] MEDS: potassium chloride premix 100 ML 25 MEQ IV (05:24)
[2021-02-13] MEDS: acetaminophen 325 mg Tablet 650 MG PO (05:25)
[2021-02-13] MEDS: linezolid premix 600 MG/300 ML PREMIX 300 MG IV ×2 (05:25→17:29)
--- NOTE | 2021-02-13 06:00 | XRR_ITS ---
PROCEDURE INFORMATION: Exam: XR Chest Exam date and time: 02/13/2021 6:00 AM Age: 50 years old Clinical indication: Shortness of breath; Patient HX: Resp failure-on bipap; Additional info: Hypoxia TECHNIQUE: Imaging protocol: XR of the chest. Views: 1 view. COMPARISON: CR XR chest 1V portable [id number] 02/11/2021 11:24 AM FINDINGS: Tubes, catheters and devices: There is a stable left internal jugular vein central venous line with its tip at the level of the superior vena cava. EKG leads overlie the chest. Lungs: There are bilateral diffuse interstitial opacities present similar to those seen 02/11/2021 suggesting a diffuse bilateral interstitial pneumonia. Pleural spaces: Unremarkable. No pleural effusion. No pneumothorax. Heart/Mediastinum: Unremarkable. No cardiomegaly. Bones/joints: Unremarkable. XR/XR chest 1V portable [id number] IMPRESSION: 1. Stable left internal jugular vein central venous line. 2. Diffuse bilateral interstitial opacities unchanged from 02/11/2021. Radiation Dose CTDIVOL = (mGy): DLP = (mGy-cm)
--- NOTE | 2021-02-13 06:06 | PC.NURSE ---
Patient fairly stable throughout the shift. Patient unable to take off bipap mask, for medications or foods, without sats declining to mid 70's with 1-3 minutes recovery time. Patient febrile at 0500, tylenol given. Patient c/o of pain in back. BP and heart rate remain stable throughout shift. Patient repositioned Q2. Will continue to monitor.
[2021-02-13] MEDS: famotidine 20 mg/2 mL INJ IVP ×2 (08:37→20:11)
[2021-02-13 08:38] LABS: Magnesium 1.8 mg/dL (1.7-2.3)
[2021-02-13] MEDS: sertraline 50 mg Tablet 75 MG PO (08:38)
[2021-02-13] MEDS: cetirizine 10 mg Tablet PO (08:38)
[2021-02-13] MEDS: gabapentin 400 mg Capsule 800 MG PO ×2 (08:38→17:29)
[2021-02-13] MEDS: chlorhexidine gluconate 0.12% Btl 473 mL 15 ML MUCOUS MEM ×2 (08:38→17:28)
[2021-02-13] MEDS: topiramate 25 mg Tablet 50 MG PO ×2 (08:38→17:29)
--- NOTE | 2021-02-13 11:12 | PC.NURSE ---
Pt's at bedside, this nurse noted not wearing N95 that was provided, nor any other mask.
[2021-02-13] MEDS: fentaNYL 50 mcg/mL INJ 2mL 100 MCG IV (13:42)
[2021-02-13] MEDS: propofol 10 mg/mL SDV 20 mL 200 MG IVP (13:42)
[2021-02-13] MEDS: rocuronium 10 mg/mL INJ 5mL 120 MG IVP (13:42)
--- NOTE | 2021-02-13 13:45 | ANES.PROC ---
Anesthesia Procedures Procedure/Date: 02/13/21 Intubation: Time Out Performed: Yes Consent: requested by attending/covering physician Sedative (amount): other (Propofol 200 mg + fentanyl 100 mg) Paralytic (amount): rocuronium (120 mg) Laryngoscope: Henri (Glidesocpe 3) ET Tube Uncuffed: No Tube Secured Depth (cm): 23 Tube Secured Location: lips Tube Placement Confirmation: visualized tube passing through cords and equal breath sounds bilaterally Patient Tolerated Procedure: well and no complications Intubation Complications: none
--- NOTE | 2021-02-13 13:51 | XRR_ITS ---
PROCEDURE INFORMATION: Exam: XR Chest Exam date and time: 02/13/2021 1:51 PM Age: 50 years old Clinical indication: Device placement; Ett placement (vent status); Additional info: Intubation TECHNIQUE: Imaging protocol: XR of the chest. Views: 1 view. COMPARISON: CR XR chest 1V portable [id number] 02/13/2021 5:08 AM FINDINGS: Tubes, catheters and devices: Tip of the ET tube projects 2.5 cm superior to the bart. G-tube passes below the hemidiaphragms. The tip is not definitely visualized. Lungs: There are hazy bilateral pulmonary opacities, left greater than right. Pleural spaces: Costophrenic angles are obscured and pleural effusions cannot be excluded. Heart/Mediastinum: Unremarkable. No cardiomegaly. Bones/joints: Unremarkable. XR/XR chest 1V portable [id number] IMPRESSION: 1. Tip of the ET tube projects 2.5 cm superior to the bart. 2. There are hazy bilateral pulmonary opacities, left greater than right. Radiation Dose CTDIVOL = (mGy): DLP = (mGy-cm)
[2021-02-13] MEDS: lidocaine 1% INJ 20 mL 10 ML ENDOTRACHE (14:47)
[2021-02-13] MEDS: propofol 1,000 MG/100 ML INJ 7.28 MG IV (14:50)
--- NOTE | 2021-02-13 15:21 | PM.PN ---
Subjective Subjective: Interval history: This morning noted saturation at 83-85. Discussed with RT she has not been able to anything due to palpitations at rest. Respiratory rate high 20s-30s. Additional discussions with supportive care to place with her , Consideration of intubation mechanical ventilation. She decided that she would like her to be able to return if healthcare refusing intubation and then decided to proceed electively currently before leaving for horse decompensation, trying to avoid emergent intubation. Subsequently like to pursue tracheostomy. Denies chest pain or pressure. Was reluctant to start TPN. Reports vaginal burning which she gets during course of antibiotics. Vitals/I&O/Wt Last Vital Signs Temp 100.0 F H 02/13/21 05:00 Pulse 75 02/13/21 13:26 Resp 16 02/13/21 14:39 BP 123/62 02/13/21 06:30 Pulse Ox 90 02/13/21 14:39 02/13/21 02/13/21 02/13/21 06:59 14:59 22:59 Intake Total 400 / 1145 202 / 202 Output Total 450 / 775 Balance -50 / 370 202 / 202 Weight last 48 hrs Weight 122.47 kg Weight 122.515 kg Physical Exam Narrative: EXAM NARRATIVE: and nursing staff at bedside during second meeting. Const: COMMON NORMALS: no acute distress GENERAL APPEARANCE: lethargic NUTRITIONAL APPEARANCE: obese morbidly obese ORIENTATION/CONSCIOUSNESS: Yes confused and Yes lethargic OTHER: Awake HENMT: COMMON NORMALS: oropharynx normal Neck/C-Spine: COMMON NORMALS: no JVD Resp: COMMON NORMALS: clear to auscultation bilaterally AUSCULTATION: clear to auscultation bilaterally Cardio: COMMON NORMALS: no JVD, regular rhythm and No murmurs present (Cardio) RATE: bradycardic RHYTHM: regular rhythm GI: COMMON NORMALS: Normal to inspection, nondistended, normoactive bowel sounds present, Soft to palpation and non-tender PALPATION: Yes Soft to palpation Extremity: COMMON NORMALS: no joint enlargement and no pedal edema Neuro: COMMON NORMALS: moves all extremities SENSORIUM/ORIENTATION: Yes lethargic Skin: COMMON NORMALS: no rashes or lesions noted GENERAL SKIN EXAM: no rashes or lesions noted Urinary Catheter Management^: Yo: Cath Placed During This Visit: yes Reason for Continuing Indwelling Catheter: Accurate Measurement of Urinary Output in Critically Ill Patients Urinary Catheter Date of Insertion: 02/04/21 Urinary Catheter Time of Insertion: 03:15 Data : 02/13/21 03:30 02/13/21 03:30 Micro: Microbiology 02/12/21 17:56 Blood Culture - Preliminary Blood SPECIMEN COLLECTED 02/12/21 18:50 Blood Culture - Preliminary Blood SPECIMEN COLLECTED A&P Assessment and plan (1) Acute respiratory failure with hypoxia: On additional goals of care discussions she has made her power of ip technology transactions attorney of healthcare. Paperwork filled out. Elected to proceed with intubation and mechanical ventilation given worsening hypoxia, inability to tolerate any oral intake. And would like to subsequently proceed with tracheostomy possibly even tomorrow depending on condition. Restarted sedation. Still requiring high percent oxygen to maintain saturation, requesting paralytics for her as well. May require proning. Continue empiric antibiotics with Zosyn and broadened with linezolid at this time. Collect endotracheal cultures. Repeat chest x-ray. Started on low-dose propofol. Intubation due to high sedation requirement, however, please do not continue the medication due to hypertriglyceridemia. Decadron. Continue full dose anticoagulation until able to obtain further imaging assessment to exclude PE. Repeated chest x-ray yesterday, with unchanged bilateral pulmonary opacities. Blood cultures obtained from central line. Consider switching to PICC line once available. Repeat chest x-ray in the morning. reported she is severely claustrophobic as well. reports also history of brain tumor for which she was being followed in [place] prior to moving here. Resumed home gabapentin, Topamax, sertraline, trazodone, tizanidine, Zyrtec. Avoid propofol due to hypertriglyceridemia. -Completed remdesivir -Status post 1 dose Actemra Sputum culture growing Staphylococcus aureus. -Continue broad-spectrum antibiotic therapy with Zosyn, linezolid -Central line in place -Pepcid for GI prophylaxis Status: Acute (2) Severe sepsis with septic shock: Status: Acute (3) Pneumonia due to COVID-19 virus: Status: Acute (4) Hypernatremia: Improving Monitor sodium. Status: Acute (5) Lactic acidosis: As above Status: Acute (6) Acute kidney injury: As above Status: Acute (7) Diabetes: Lantus, sliding scale Status: Acute (8) Acute metabolic encephalopathy due to hypoglycemia: Resolving. Status: Acute (9) Acute respiratory distress syndrome: Status: Acute (10) Diabetic ketoacidosis: Resolved Status: Acute (11) Acute respiratory distress syndrome (ARDS) due to 2019 novel coronavirus: Status: Acute (12) Shock: Status: Acute Additional A&P Information Hypokalemia: Received replacement this morning. Give magnesium replacement. Rhabdomyolysis: Improving. Vulvovaginal candidiasis: Requested dose of Diflucan. History of brain tumor: Hospital states she had been followed in [place] Attestations Medical Necessity Statement*: Continue admission for hypoxic respite failure secondary to severe COVID-19. Coding Level of Care Code Acute Burling And Joining Supervisor for [facility] Fwd Diagnoses Acute respiratory failure with hypoxia J96.01 Severe sepsis with septic shock A41.9; R65.21 Pneumonia due to COVID-19 virus U07.1; J12.82 Hypernatremia E87.0 Lactic acidosis E87.2 Acute kidney injury N17.9 Diabetes E11.9 Acute metabolic encephalopathy due to hypoglycemia G93.41; E16.2 Acute respiratory distress syndrome J80 Diabetic ketoacidosis E11.10 Acute respiratory distress syndrome (ARDS) due to 2019 novel coronavirus U07.1; J80 Shock R57.9
[2021-02-13] MEDS: LORazepam 2 mg/mL INJ 1 mL IVP (15:29)
[2021-02-13] MEDS: dexmedetomidine 400 MCG in sodium chloride 0.9% (100 ml) 100 ML IV (15:30)
[2021-02-13] MEDS: insulin lispro 100 unit/1 mL SUBCUT ×2 (16:26→22:04)
[2021-02-13 16:38] LABS: ABG PCO2 54.4 mmHg (35-45); Alveolar-Arterial Oxygen Gradi 76.5 mmHg (5-10); Arterial Blood Gas Hematocrit 43.9 % (37-47); Base Excess ABG -0.8 mmol/L (-2.0-2.0); Blood Gas Allen Test Pos; Blood Gas Operator Identificat GD; Blood Gas Sample Site Radial, left; Blood Gas Sample Type Arterial; Blood Gas Tidal Volume 0.38; Carboxyhemoglobin 1.4 %THgb (0.4-20.1); HCO3 ABG 26.6 mmol/L (22-26); HGB O2 Sat 86.5 % (95-100); Ionized Calcium Level - ABG 1.2 mmol/L (1.1-1.4); Methemoglobin 0.7 % (0.4-1.5); Oxygen Device VENT; Oxygen Saturation ABG 88.4; PO2 ABG 60.9 mmHg (80.0-100.0); Potassium Level - ABG 3.6 mmol/L (3.5-5.0); Total Hemoglobin 14.3 g/dL (12-16)
[2021-02-13] MEDS: artificial tears Op Oint 3.5 gm 1 APPLIC EYE-BOTH (17:28)
[2021-02-13] MEDS: fluconazole 100 mg Tablet 150 MG PO (17:28)
[2021-02-13] MEDS: propofol 1,000 MG/100 ML INJ 21.83 MG IV (18:37)
--- NOTE | 2021-02-13 19:48 | PC.NURSE ---
[address] Fisher, patient's , and charge nurse. Detailed discussion about patients wishes for her plan of care. Patient states she wants to make her her POA and proceed with intubation. Case management notified, POA papers completed. Consent for intubation obtained. 1345 Dr. Mejia intubated patient. [address] Fisher to report vital signs. [address] Fisher regarding patient's elevated heart rate and blood pressure and low O2 sat. Reviewed current medications. Orders to add Precedex and Nimbex drip.
[2021-02-13] MEDS: gabapentin 400 mg Capsule 1600 MG PO (20:10)
[2021-02-13] MEDS: trazodone 100 mg Tablet 200 MG PO (20:11)
[2021-02-13 22:16] LABS: ABG PH Result 7.23 (7.35-7.45); Arterial Blood Gas Hematocrit 45.6 % (37-47); Base Excess ABG -1.2 mmol/L (-2.0-2.0); Blood Gas Allen Test Pos; Blood Gas Operator Identificat JB; Blood Gas Sample Site Radial, right; Blood Gas Sample Type Arterial; Blood Gas Tidal Volume 0.38; HCO3 ABG 28.2 mmol/L (22-26); Oxygen Device VENT; PO2 ABG 60.7 mmHg (80.0-100.0)
[2021-02-13 22:17] LABS: ABG PCO2 66.9 mmHg (35-45)
[2021-02-14] VITALS (55 sets, daily range): BP systolic 96–167; BP diastolic 45–86; PULSE 60–111; RESP 20–29; TEMP 36.7–37.4; O2SAT 80–90
[2021-02-14] MEDS: piperacillin-tazobactam 3.375 GM in dextrose 5% (plus) 50 ML IV ×4 (00:29→23:27)
[2021-02-14] MEDS: enoxaparin 120 mg/0.8 mL Syringe SUBCUT ×3 (00:29→23:27)
[2021-02-14] MEDS: dextrose 5%-sod chloride 0.45% 1,000 ML 50 ML IV (00:29)
[2021-02-14 03:05] LABS: ABG PH Result 7.24 (7.35-7.45); Arterial Blood Gas Hematocrit 42.3 % (37-47); Base Excess ABG -0.9 mmol/L (-2.0-2.0); Blood Gas Allen Test Pos; Blood Gas Sample Type Arterial; Carboxyhemoglobin 1.5 %THgb (0.4-20.1); Ionized Calcium Level - ABG 1.2 mmol/L (1.1-1.4); Methemoglobin 0.6 % (0.4-1.5); PO2 ABG 67.4 mmHg (80.0-100.0); Potassium Level - ABG 3.6 mmol/L (3.5-5.0); Total Hemoglobin 13.8 g/dL (12-16)
[2021-02-14 03:07] LABS: Alveolar-Arterial Oxygen Gradi 74.4 mmHg (5-10); Blood Gas Operator Identificat JB; Blood Gas Sample Site Radial, right; Blood Gas Tidal Volume 0.38; Oxygen Device VENT
[2021-02-14 03:08] LABS: ABG PCO2 64.6 mmHg (35-45)
[2021-02-14] MEDS: tizanidine 4 mg Tablet PO ×3 (03:26→20:39)
[2021-02-14] MEDS: dexamethasone 10 mg/mL INJ 3 MG IVP (05:08)
[2021-02-14] MEDS: linezolid premix 600 MG/300 ML PREMIX 300 MG IV ×2 (05:08→17:17)
[2021-02-14] MEDS: insulin lispro 100 unit/1 mL SUBCUT ×4 (05:08→22:02)
[2021-02-14 05:24] LABS: Basophils % 0.3 %; Eosinophils # 0.3 10^3/uL (0.0-0.8); Eosinophils % 1.9 %; Hematocrit 41.3 % (37.0-47.0); Lymphocytes # 0.7 10^3/uL (0.8-4.8); Lymphocytes % 5.2 %; Mean Corpuscular HGB Conc 31.5 g/dL (30.0-36.0); Mean Corpuscular Hemoglobin 30.7 pg (28.0-34.0); Mean Corpuscular Volume 97.4 fl (81-99); Mean Platelet Volume 12.9 fL (7.4-10.4); Monocytes # 0.6 10^3/uL (0.2-0.9); Monocytes % 4.4 %; Neutrophils # 12.32 10^3/uL (1.8-7.7); Nucleated Red Blood Cells % 0 %; Platelet Count 155 10^3/cmm (130-400); Red Blood Count 4.24 10^6/uL (4.1-5.3); Red Cell Distribution Width 14.2 % (12.1-15.1); White Blood Count 14.2 10^3/uL (4.0-10.0)
--- NOTE | 2021-02-14 05:32 | PC.NURSE ---
Patient oxygen sats ranging from 83-90% throughout shift. RT to bedside multiple times to adjust vent settings. Dr. Brizuela aware. Patient GSC 3 r/t paralytic and sedation with pinpoint pupils. Patient noted to have generalized mottling throughout shift, with cap refill >3 seconds. Lung sounds coarse and diminished. Heart rate SB to NSR and blood pressure managed with levophed per protocol. Urine output minimal at 350 for 12 hours. Repositioned, and oral care done Q2. All drips titrated per protocol. BIS and TOF monitored Q2. Will continue to monitor.
[2021-02-14 05:48] LABS: Alanine Aminotransferase 13 U/L (0-33); Albumin Level 2.8 g/dL (3.5-5.2); Alkaline Phosphatase 117 IU/L (35-105); Anion Gap 15.6 (5-19); Aspartate Amino Transferase 18 U/L (0-32); Blood Urea Nitrogen 14 mg/dL (6-20); Carbon Dioxide 26 mmol/L (22-29); Chloride 101 mmol/L (98-107); Globulin 2.8 g/dL (1.3-4.6); Glomerular Filtration Rate 88.2 mL/min (90-130); Glucose 202 mg/dL (65-115); Osmolality Calculated 294 mOsm/kg (285-295); Potassium 3.6 mmol/L (3.5-5.1); Sodium 139 mmol/L (136-145); Total Bilirubin 0.3 mg/dL (0.15-1.2); Total Protein 5.6 g/dL (6.6-8.7)
--- NOTE | 2021-02-14 06:00 | XR_ITS ---
WS: [id number] Exam: XR chest 1V portable [id number] Date/Time of Exam: 02/14/2021 6:26 AM Reason For Exam: Hypoxia Comparison 02/13/2021. Extensive widespread pulmonary infiltrates are noted. There is increased consolidation in the lower l [place] zones bilaterally. The lungs are fully expanded. An ET tube is in place ending about 3 cm above t he bart in good position. An enteric tube extends into the stomach but the tip is difficult to iden tify. A left-sided IJ catheter appears to extend into the right atrium. Monitoring leads superimpose the chest. Heart size is within normal limits for technique. XR/XR chest 1V portable [id number] IMPRESSION: 1. Widespread bilateral pulmonary infiltrates showing increasing consolidation in the bilateral lung zones since the last exam. 2. ET tube, central line and enteric tube in place as detailed above.
[2021-02-14 06:33] LABS: ABG PCO2 57.1 mmHg (35-45); ABG PH Result 7.33 (7.35-7.45); Base Excess ABG 2.5 mmol/L (-2.0-2.0); Blood Gas Allen Test Pos; Blood Gas Operator Identificat JB; Blood Gas Sample Site Radial, right; Blood Gas Sample Type Arterial; Blood Gas Tidal Volume 0.36; HCO3 ABG 29.8 mmol/L (22-26); Oxygen Device VENT; PO2 ABG 51.6 mmHg (80.0-100.0)
[2021-02-14] MEDS: topiramate 25 mg Tablet 50 MG PO (08:14)
[2021-02-14] MEDS: famotidine 20 mg/2 mL INJ IVP (08:14)
[2021-02-14] MEDS: sertraline 50 mg Tablet 75 MG PO (08:14)
[2021-02-14] MEDS: gabapentin 400 mg Capsule 800 MG PO ×2 (08:52→17:06)
--- NOTE | 2021-02-14 09:23 | PC.OT ---
OT TREATMENT PLAN UPDATED TO REFLECT SUNDAY-SUNDAY TREATMENTS 5X WEEK. WITH PERMISSION OF EVALUATING THERAPIST
--- NOTE | 2021-02-14 09:35 | PC.CHAP ---
Pastoral Care Encounter/Spiritual Assessment Type of Contact [] Declined maintenance engineer oil field visit [] Patient/Family/Request visit [] Outpatient visit [] Follow-up visit [] Physician referral [] Code/Alert [x] Routine visit [] Staff referral [] Actively dying [x] Patient sleeping [] Family support [] [] Out of room [] Palliative care [] [] Receiving care in room [] Pre-surgical visit [] Trauma [] Long length of stay [x] ICU visit [x] Other: on vent.. Relational/Emotional Strength [] Patient feels connected with others/family/visitors/staff [] Distress [] Loneliness/isolation [] Abandonment Spirituality of Patient [] Person of Annalise [] Attends Rastafarian of their Annalise [] Believes in Prayer [] Reads Bible or Taoist materials [] There are Spiritual issues to be addressed Biomedical Technician Interventions [x] Prayer [] Active listening [] Non-anxious presence [] Spiritual/emotional support [] Crisis/trauma care [] Spiritual counseling [] Bereavement support [] Provided bereavement packet [] Provided Bible/devotional materials [] Provided toy/stuffed animal, coloring book to patient or family member [] Provided Communion [] Anointing/[place] [] Salvation [x] Completed spiritual assessment [] Other: Impact on Illness or Injury [] Angry [] Fearful [] Anxious [] Often cries [] Exhaustion [] Unable to work [] Unable to attend synagogue [] Unable to walk/stand [] Unable to read [] Unable to drive [] Unable to eat/drink [] Unable to sleep [] Unable to be with family [] Patient intubated [] Other: Summary Time spent with patient
[2021-02-14 10:44] LABS: NT Pro B Type Natriuretic Pept 522 pg/mL (0-125); Procalcitonin 0.26 ng/mL (0-0.5)
[2021-02-14 10:55] LABS: Iron 34 ug/dL (37-145); Percent Saturation 19.2 % (20-50); Total Iron Binding Capacity 177 mcg/dl; Unsaturated Iron Binding 143 ug/dL (112-347)
[2021-02-14] MEDS: FUROsemide 10 mg/mL SDV 10mL 80 MG IVP ×2 (11:24→22:01)
[2021-02-14] MEDS: levofloxacin-dextrose 5 % 500 MG/100 ML PREMIX 100 MG IV (11:26)
[2021-02-14] MEDS: sodium chloride 0.9% 500 ML 10 ML IV (11:29)
[2021-02-14] MEDS: ipratropium-albuterol 3 mL Neb INHALATION ×4 (12:03→23:27)
[2021-02-14] MEDS: insulin glargine 100 units/1 mL 60 UNIT SUBCUT ×2 (12:24→22:01)
[2021-02-14] MEDS: dexmedetomidine 400 MCG in sodium chloride 0.9% (100 ml) 100 ML 9.14 MCG IV (13:24)
--- NOTE | 2021-02-14 14:15 | PC.OT ---
OT TREATMENT HELD TODAY DUE TO PATIENT INTUBATION. WILL ATTEMPT AGAIN TOMORROW.
[2021-02-14 15:07] LABS: Urine Appearance Cloudy (CLEAR); Urine Color Straw (Yellow)
[2021-02-14 15:08] LABS: Add Urine Microscopic? YES; Bilirubin Urine Neg (Negative); Blood Urine Neg (Negative); Glucose Urine UA 1+ (Normal); Ketones Urine Negative (Negative); Leukocyte Esterase Urine 1+ (Negative); Nitrate Urine Negative (Negative); Protein Urine Neg (Negative); RBC Urine 0-4 /hpf (0-2); Specific Gravity, Urine 1.005 (1.005-1.030); Urobilinogen Urine Norm (Negative); pH Urine 5 (5-7)
[2021-02-14 15:09] LABS: Add Urine Culture? No
[2021-02-14 16:16] LABS: ABG PCO2 56.2 mmHg (35-45); ABG PH Result 7.38 (7.35-7.45); Alveolar-Arterial Oxygen Gradi 78.1 mmHg (5-10); Arterial Blood Gas Hematocrit 40.7 % (37-47); Base Excess ABG 6.1 mmol/L (-2.0-2.0); Blood Gas Allen Test Pos; Blood Gas Operator Identificat GD; Blood Gas Sample Site Radial, right; Blood Gas Sample Type Arterial; Blood Gas Tidal Volume 0.36; Carboxyhemoglobin 1.6 %THgb (0.4-20.1); HGB O2 Sat 81.7 % (95-100); Ionized Calcium Level - ABG 1.1 mmol/L (1.1-1.4); Methemoglobin 0.6 % (0.4-1.5); Oxygen Device VENT; Oxygen Saturation ABG 83.6; PO2 ABG 45.2 mmHg (80.0-100.0); Potassium Level - ABG 2.9 mmol/L (3.5-5.0); Total Hemoglobin 13.3 g/dL (12-16)
[2021-02-14] MEDS: ascorbic acid 500 mg Tablet 1000 MG PO (17:06)
--- NOTE | 2021-02-14 18:43 | PC.NURSE ---
Addendum entered by Gayle Limon RN 02/14/21 18:46: Pt's Santino has been updated throughout the shift. Original Note: Shift Note Frequent safety and comfort rounds continue. Orders and/or nursing care completed as indicated. Patient monitored for response to intervention and treatment(s). Education provided includes proning. Patient and/or automotive leasing sales representative verbalized understanding. Lasix given with 2800ml out today. Albumin given. Will continue to monitor.
[2021-02-14] MEDS: budesonide 0.5 mg/2 mL Neb INHALATION (20:09)
[2021-02-14] MEDS: gabapentin 400 mg Capsule 1600 MG PO (20:39)
--- NOTE | 2021-02-14 23:25 | PM.PN ---
Subjective Subjective: Interval history: Hospital course, labs appreciated. Patient seen multiple times during the day and care discussed multiple times with patient's RN during the day. Today morning on examination patient is on mechanical ventilation with 100% FiO2, Tidal volume of 360, PEEP of 10 saturating in mid 80s with sedation with Versed, Precedex and fentanyl, Levophed running at 10 with mean arterial pressure of around 70 and fluids running at 50 cc/h. Fluids were stopped and patient was started on IV Lasix 80 mg twice daily. During the day patient saturation continued to remain low to mid 80s after which decision was made to prone the patient after discussing with Dr. Harmon. Patient remained afebrile. Vitals/I&O/Wt Last Vital Signs Temp 98.1 F 02/14/21 22:00 Pulse 75 02/14/21 22:00 Resp 28 H 02/14/21 22:00 BP 136/57 02/14/21 22:00 Pulse Ox 82 L 02/14/21 22:00 02/14/21 02/14/21 02/15/21 14:59 22:59 06:59 Intake Total 264.161 / 105.559 0676 / 2124.161 Output Total 2800 / 2800 Balance 264.161 / 264.161 -940 / -675.839 Weight last 48 hrs Weight 123.377 kg Weight 122.47 kg Physical Exam Narrative: EXAM NARRATIVE: General: Intubated, sedated HEENT: PERRLA, pupils bilaterally equal and reactive Chest: Bilateral bronchial breath sounds, coarse crackles present all over the lung leigh specially in bilateral middle and lower zones CVS: S1-S2 regular, no murmurs, no tachycardia, no gallops, no rubs Abdomen: Soft, nontender, no organomegaly, bowel sounds present Neuro: Intubated, sedated Urinary Catheter Management^: Yo: Cath Placed During This Visit: yes Reason for Continuing Indwelling Catheter: Accurate Measurement of Urinary Output in Critically Ill Patients Urinary Catheter Date of Insertion: 02/04/21 Urinary Catheter Time of Insertion: 03:15 Data : 02/14/21 03:33 02/14/21 03:33 Micro: Microbiology 02/14/21 14:10 Legionella Urinary Antigen - Final Urine Catheterized 02/14/21 14:10 Bacterial Antigens - Final Urine Kidney 02/13/21 14:00 Gram Stain - Final Sputum - Endotracheal Tube Aspirate Sputum Culture - Preliminary 02/12/21 17:56 Blood Culture - Preliminary Blood NEGATIVE TO DATE 02/12/21 18:50 Blood Culture - Preliminary Blood NEGATIVE TO DATE A&P Assessment and plan (1) Acute respiratory distress syndrome (ARDS) due to 2019 novel coronavirus: Status: Acute (2) Severe sepsis with septic shock: Status: Acute (3) Pneumonia due to COVID-19 virus: Status: Acute (4) Acute kidney injury: As above Status: Acute (5) Diabetes: Lantus, sliding scale Status: Acute (6) Hypernatremia: Improving Monitor sodium. Status: Acute (7) Lactic acidosis: As above Status: Acute (8) Acute metabolic encephalopathy due to hypoglycemia: Resolving. Status: Acute (9) Diabetic ketoacidosis: Resolved Status: Acute Additional A&P Information History of brain tumor: Hospital states she had been followed in [place] Plan for the day: Continue with mechanical ventilation with target saturation in high 80s and above. Stop IV fluids. IV Lasix 20 mg twice daily. Strict input output charting with target 1 to 2 L negative in next 24 hours. Keep mean arterial pressure over 65 and try to wean Levophed accordingly. Continue sedation with Nimbex, Versed and fentanyl. Plan to prone to facilitate oxygen saturation. Continue other chronic psych and pain medications to avoid withdrawal. Continue with full dose Lovenox continue antibiotic coverage with linezolid, Zosyn. Start patient on DuoNebs every 4 hour, desonide twice daily, vitamin C, zinc. Check urinalysis, urine Legionella, bacterial antigen, bnp, procal. Start patient on Levaquin for atypical coverage. If not able to provide start patient on tube feedings at 10 cc/h with goal of 60 cc/h, increasing to 10 cc every 6 hour with free water flushes 100 every 6. Monitor inflammatory markers. Attestations Medical Necessity Statement*: Requires further hospitalization for management of ARDS secondary to COVID-19 pneumonia, septic shock Critical Care Time: The high probability of a clinically significant, sudden or life threatening deterioration of the patient's [pulmonology, cardiac] system(s) required my full and direct attention, intervention and personal management. The critical care time is as shown. This time is in addition to time spent performing any reported procedures but includes the following: [x] Data and vital sign review and interpretation [x] Patient assessment, examination and intervention [x] Documentation [x] Medication orders and management Critical Care Time (min): 90 Coding Level of Care Code Acute House Superintendent for g Fwd Diagnoses Acute respiratory distress syndrome (ARDS) due to 2019 novel coronavirus U07.1; J80 Severe sepsis with septic shock A41.9; R65.21 Pneumonia due to COVID-19 virus U07.1; J12.82 Acute kidney injury N17.9 Diabetes E11.9 Hypernatremia E87.0 Lactic acidosis E87.2 Acute metabolic encephalopathy due to hypoglycemia G93.41; E16.2 Diabetic ketoacidosis E11.10
[2021-02-15] VITALS (74 sets, daily range): BP systolic 98–180; BP diastolic 50–99; PULSE 61–87; RESP 28; TEMP 37.2–37.7; O2SAT 80–91
[2021-02-15] MEDS: dexmedetomidine 400 MCG in sodium chloride 0.9% (100 ml) 100 ML 15.24 MCG IV ×3 (00:03→17:41)
[2021-02-15] MEDS: ipratropium-albuterol 3 mL Neb INHALATION ×6 (03:20→23:45)
[2021-02-15 03:42] LABS: Blood Gas Allen Test Pos; Blood Gas Sample Site Radial, right; Blood Gas Sample Type Arterial; Blood Gas Tidal Volume 0.32; Oxygen Device VENT
[2021-02-15] MEDS: tizanidine 4 mg Tablet PO ×3 (04:05→19:34)
[2021-02-15 04:38] LABS: ABG PH Result 7.37 (7.35-7.45); Arterial Blood Gas Hematocrit 39.2 % (37-47); Base Excess ABG 9.9 mmol/L (-2.0-2.0); HCO3 ABG 37.6 mmol/L (22-26); PO2 ABG 52.6 mmHg (80.0-100.0)
[2021-02-15 04:43] LABS: ABG PCO2 64.6 mmHg (35-45)
[2021-02-15] MEDS: linezolid premix 600 MG/300 ML PREMIX 300 MG IV ×2 (05:15→17:27)
[2021-02-15] MEDS: dexamethasone 10 mg/mL INJ 3 MG IVP (05:16)
--- NOTE | 2021-02-15 06:11 | PC.NURSE ---
Patient was proned at approximately 2200. Oxygen saturation noted to be between 80-88%. RT to bedside multiple times to address the issue. Patient noted to be pale, with a mild fever. Lung sounds coarse. HR sr and BP WNL without the any pressors. 4 loose stools noted throughout shift. Patient repositioned and oral care done Q2. BIS and TOF recorded Q2. 2000: BIS: 39, TOF: 04/05 2200: BIS: 35, TOF: 05/06 0000: BIS: 43, TOF: 05/06 0200: BIS: 52, TOF: 04/05 0400: BIS: 49, TOF: 04/05 0600: BIS: 35, TOF: 04/05
[2021-02-15] MEDS: gabapentin 400 mg Capsule 800 MG PO ×2 (07:39→17:27)
[2021-02-15] MEDS: zinc gluconate 50 mg Tablet PO (07:40)
[2021-02-15] MEDS: sertraline 50 mg Tablet 75 MG PO (07:40)
[2021-02-15] MEDS: piperacillin-tazobactam 3.375 GM in dextrose 5% (plus) 50 ML IV ×3 (07:41→23:24)
[2021-02-15] MEDS: ascorbic acid 500 mg Tablet 1000 MG PO ×2 (07:41→17:27)
[2021-02-15] MEDS: chlorhexidine gluconate 0.12% Btl 473 mL 15 ML MUCOUS MEM ×2 (07:42→18:05)
[2021-02-15] MEDS: artificial tears Op Oint 3.5 gm 1 APPLIC EYE-BOTH ×2 (07:43→18:05)
[2021-02-15] MEDS: budesonide 0.5 mg/2 mL Neb INHALATION ×2 (08:01→20:35)
--- NOTE | 2021-02-15 08:19 | PC.NURSE ---
Left IJ will not draw blood, but will flush.
--- NOTE | 2021-02-15 08:45 | XR_ITS ---
WS: [id number] Exam: XR chest 1V portable [id number] Date/Time of Exam: 02/15/2021 8:50 AM Reason For Exam: pna Comparison 02/14/2021. Widespread infiltrates throughout both lungs show slightly less consolidation than noted previously. No pneumothorax or pleural effusion. Cardiomediastinal silhouette is unremarkable. ET tube ends about 3 cm above the bart in good position. Left IJ catheter extends into the right atrium. An enteric t ube extends below the level of the diaphragm but the tip is not visible. Monitoring leads superimpose the chest. XR/XR chest 1V portable [id number] IMPRESSION: 1. Widespread bilateral pulmonary infiltrates showing slightly less consolidati on than noted previously. No other significant change.
[2021-02-15] MEDS: FUROsemide 10 mg/mL SDV 10mL 80 MG IVP (10:18)
[2021-02-15 10:19] LABS: Basophils # 0.1 10^3/uL (0.0-0.1); Basophils % 0.4 %; Eosinophils # 0.2 10^3/uL (0.0-0.8); Eosinophils % 1.7 %; Hematocrit 39.5 % (37.0-47.0); Hemoglobin 12.3 g/dL (11.5-15.3); Lymphocytes # 0.3 10^3/uL (0.8-4.8); Lymphocytes % 2.5 %; Mean Corpuscular HGB Conc 31.1 g/dL (30.0-36.0); Mean Corpuscular Hemoglobin 30.4 pg (28.0-34.0); Mean Corpuscular Volume 97.8 fl (81-99); Monocytes # 0.2 10^3/uL (0.2-0.9); Monocytes % 1.8 %; Neutrophils # 11.64 10^3/uL (1.8-7.7); Neutrophils % 92.3 %; Nucleated Red Blood Cells % 0 %; Platelet Count 187 10^3/cmm (130-400); Red Blood Count 4.04 10^6/uL (4.1-5.3); Red Cell Distribution Width 14.1 % (12.1-15.1); White Blood Count 12.6 10^3/uL (4.0-10.0)
[2021-02-15] MEDS: sodium chloride 0.9% 500 ML 10 ML IV (10:23)
[2021-02-15 10:59] LABS: Alanine Aminotransferase 14 U/L (0-33); Albumin Level 3.4 g/dL (3.5-5.2); Alkaline Phosphatase 113 IU/L (35-105); Anion Gap 20.6 (5-19); Aspartate Amino Transferase 22 U/L (0-32); Blood Urea Nitrogen 8 mg/dL (6-20); C Reactive Protein 12.2 mg/L (0.0-4.9); Calcium 8.2 mg/dL (8.5-10.5); Carbon Dioxide 27 mmol/L (22-29); Chloride 96 mmol/L (98-107); Globulin 2.5 g/dL (1.3-4.6); Glomerular Filtration Rate 130.1 mL/min (90-130); Glucose 189 mg/dL (65-115); NT Pro B Type Natriuretic Pept 449 pg/mL (0-125); Osmolality Calculated 293 mOsm/kg (285-295); Potassium 3.6 mmol/L (3.5-5.1); Sodium 140 mmol/L (136-145); Total Bilirubin 0.3 mg/dL (0.15-1.2); Total Protein 5.9 g/dL (6.6-8.7)
[2021-02-15] MEDS: enoxaparin 120 mg/0.8 mL Syringe SUBCUT ×2 (11:18→23:24)
[2021-02-15] MEDS: insulin glargine 100 units/1 mL 60 UNIT SUBCUT ×2 (11:19→21:53)
[2021-02-15] MEDS: insulin lispro 100 unit/1 mL SUBCUT ×3 (11:20→21:49)
[2021-02-15] MEDS: levofloxacin-dextrose 5 % 500 MG/100 ML PREMIX 100 MG IV (11:52)
--- NOTE | 2021-02-15 13:05 | PC.OT ---
Patient treatment held due to currently in prone position on vent. Will attempt again tomorrow.
[2021-02-15 15:22] LABS: ABG PCO2 49.4 mmHg (35-45); Alveolar-Arterial Oxygen Gradi 77.3 mmHg (5-10); Arterial Blood Gas Hematocrit 39.1 % (37-47); Base Excess ABG 13.2 mmol/L (-2.0-2.0); Blood Gas Allen Test Pos; Blood Gas Operator Identificat BD; Blood Gas Sample Site Radial, left; Blood Gas Sample Type Arterial; Blood Gas Tidal Volume 0.36; Carboxyhemoglobin 1.6 %THgb (0.4-20.1); HCO3 ABG 38.4 mmol/L (22-26); HGB O2 Sat 90.2 % (95-100); Ionized Calcium Level - ABG 1.1 mmol/L (1.1-1.4); Methemoglobin 0.9 % (0.4-1.5); Oxygen Device VENT; Oxygen Saturation ABG 92.4; PO2 ABG 55.3 mmHg (80.0-100.0); Potassium Level - ABG 3.2 mmol/L (3.5-5.0); Total Hemoglobin 12.8 g/dL (12-16)
--- NOTE | 2021-02-15 16:22 | P.PN_ITS ---
Subjective Subjective: Interval history: Overnight patient was prolonged yesterday evening. Her saturations have remained in the mid to high 80s. Levophed was turned off. Overnight ventilator settings were changed to a tidal volume of 320 and PEEP of 12. Morning ABG appreciated and ventilator settings changed to PEEP of 10 and tidal volume of 360. Repeat ABG appreciated from afternoon. She has had around 7 L of urine output in last 24 hours after IV Lasix. During the day patient developed diarrhea for which rectal tube was placed. Has remained afebrile Patient was made supine at around 4:30 PM. Medications: Reviewed: Yes Vitals/I&O/Wt Last Vital Signs Temp 98.9 F 02/15/21 16:00 Pulse 69 02/15/21 16:00 Resp 28 H 02/15/21 11:16 BP 124/76 02/15/21 16:00 Pulse Ox 87 L 02/15/21 16:00 02/15/21 02/15/21 02/15/21 06:59 14:59 22:59 Intake Total 542.469 / 2851.288 868.017 / 868.017 100 / 968.017 Output Total 4300 / 7100 2800 / 2800 Balance -3757.531 / -4248.712 -1931.983 / -1931.983 100 / -1831.983 Weight last 48 hrs Weight 123.831 kg Weight 123.377 kg Physical Exam Narrative: EXAM NARRATIVE: General: Intubated, sedated, prone, tube feeds stopped HEENT: PERRLA, pupils bilaterally equal and reactive Chest: Bilateral bronchial breath sounds, coarse crackles present all over the lung leigh specially in bilateral middle and lower zones CVS: S1-S2 regular, no murmurs, no tachycardia, no gallops, no rubs Abdomen: Soft, nontender, no organomegaly, bowel sounds present Neuro: Intubated, sedated Urinary Catheter Management^: Yo: Cath Placed During This Visit: yes Reason for Continuing Indwelling Catheter: Accurate Measurement of Urinary Output in Critically Ill Patients Urinary Catheter Date of Insertion: 02/04/21 Urinary Catheter Time of Insertion: 03:15 Data : 02/15/21 09:40 02/15/21 09:40 Micro: Microbiology 02/14/21 13:35 MRSA Culture - Final Nose 02/13/21 14:00 Gram Stain - Final Sputum - Endotracheal Tube Aspirate Sputum Culture - Preliminary Gram Negative Rods 02/14/21 14:10 Legionella Urinary Antigen - Final Urine Catheterized 02/14/21 14:10 Bacterial Antigens - Final Urine Kidney A&P Assessment and plan (1) Acute respiratory distress syndrome (ARDS) due to 2019 novel coronavirus: Status: Acute (2) Gram-negative pneumonia: Status: Acute (3) Severe sepsis with septic shock: Status: Acute (4) Pneumonia due to COVID-19 virus: Status: Acute (5) Acute kidney injury: As above Status: Acute (6) Diabetes: Lantus, sliding scale Status: Acute Additional A&P Information History of brain tumor: Hospital states she had been followed in [place] ARDS secondary to COVID-19 pneumonia along with obstructive sleep apnea: Severe disease. Post completion of course with IV remdesivir and 1 dose of Actemra. Post 3 proning sessions. Earlier in the admission patient's sputum culture grew staph aureus. Patient has remained on IV antibiotic therapy with Zosyn and linezolid. Patient reintubated on 02/13. Patient prone for 1 session on 02/14. Continue sedation with Versed and fentanyl. Stop Precedex. Keep paralyzed with Nimbex. We will plan for a proning session depending on saturations tomorrow morning. Urinalysis, urine Legionella, bacterial antigen negative. Sputum culture from repeat intubation growing gram-negative rods. MRSA negative. For now continue with Zosyn and Levaquin. Overall has received 7 days of linezolid during hospitalization. We will continue for 24 hours and stop tomorrow. Check C. difficile. Rectal tube in place. D-dimer down to 2.9. Continue to monitor inflammatory markers including CRP, ESR, D-dimer every 48 hourly. Continue with full dose Lovenox for now. Will transition to Eliquis once done with 5 days of full dose Lovenox. Dexamethasone 3 mg IV daily. Budesonide twice daily, DuoNebs every 4 hours. Given severe ARDS we will try to keep patient as net negative as possible. Continue with IV Lasix 80 mg twice daily. Echocardiogram done earlier in the admission shows an EF 55%, grade 1 diastolic dysfunction, trace MR. Net 6.2 L negative this hospitalization. Type 2 diabetes mellitus continue with insulin sliding scale every 6 hourly. Monitor electrolytes. Metabolic alkalosis: Most likely secondary to diarrhea and aggressive diuresis. Will repeat CMP in afternoon. Replete electrolytes accordingly. Severely guarded prognosis. Patient's prognosis and medical update discussed in detail with patient's Mr. Lenard Martin. We discussed unfortunately patient is requiring high oxygen supplementation and is still not able to maintain saturations in high 80s. We discussed it is not amenable for patient to get tracheostomy right now given high PEEP and FiO2 requirement. All the questions were answered. Limited resuscitation. DNR. Restart tube feeds once prone for more than 2 hours. Famotidine for PUD prophylaxis Attestations Medical Necessity Statement*: Utilization for management of ARDS secondary COVID-19 pneumonia, ventilator dependent, requiring proning Critical Care Time: The high probability of a clinically significant, sudden or life threatening deterioration of the patient's [pulmonary, cardiac] system(s) required my full and direct attention, intervention and personal management. The critical care time is as shown. 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
--- NOTE | 2021-02-15 16:55 | PC.NURSE ---
Patient supine at approximately 1636. Oxygen saturation currently at 92%.
[2021-02-15 17:12] LABS: Alanine Aminotransferase 16 U/L (0-33); Albumin Level 3.6 g/dL (3.5-5.2); Alkaline Phosphatase 82 IU/L (35-105); Anion Gap 16.3 (5-19); Aspartate Amino Transferase 21 U/L (0-32); Blood Urea Nitrogen 10 mg/dL (6-20); Calcium 8.3 mg/dL (8.5-10.5); Carbon Dioxide 34 mmol/L (22-29); Chloride 95 mmol/L (98-107); Globulin 2.4 g/dL (1.3-4.6); Glomerular Filtration Rate 130.1 mL/min (90-130); Glucose 204 mg/dL (65-115); Osmolality Calculated 299 mOsm/kg (285-295); Potassium 3.3 mmol/L (3.5-5.1); Sodium 142 mmol/L (136-145); Total Bilirubin 0.4 mg/dL (0.15-1.2)
[2021-02-15] MEDS: famotidine 20 mg/2 mL INJ IVP (17:26)
--- NOTE | 2021-02-15 18:30 | PC.NURSE ---
Shift Note Frequent safety and comfort rounds continue. Orders and/or nursing care completed as indicated. Patient monitored for response to intervention and treatment(s). Education provided includes mechanical ventilation settings, current IV medications, medication educations at administration. Patient intubated, sedated, paralyzed and unable to comprehend. Patent's spouse updated on condition and current care plan. Verbalized understanding. Supine at approximately 1636. Blood pressure increased resulting in increase of Fentanyl from 100 to 150mcg/hr, Nimbex increased from 4 to 6ml/hr, and precedex restarted to 0.7 after order to stop. Contacted Dr. Santana for new order. Current vent settings: FIO2 100 PEEP 10 TV 360 Oxygen saturation currently 89%. BIS 40 TOF 4
[2021-02-15] MEDS: potassium chloride oral liq 20 mEq/15 mL UDC 40 MEQ PO ×2 (19:33→20:32)
[2021-02-15] MEDS: FUROsemide 10 mg/mL SDV 10mL 40 MG IVP (19:34)
[2021-02-15] MEDS: gabapentin 400 mg Capsule 1600 MG PO (20:32)
[2021-02-15] MEDS: dexmedetomidine 400 MCG in sodium chloride 0.9% (100 ml) 100 ML 22.54 MCG IV (22:05)
[2021-02-16] VITALS (88 sets, daily range): BP systolic 94–186; BP diastolic 47–103; PULSE 59–104; RESP 28; TEMP 29.4–37.4; O2SAT 80–91
[2021-02-16] MEDS: ipratropium-albuterol 3 mL Neb INHALATION ×6 (03:20→23:30)
[2021-02-16] MEDS: tizanidine 4 mg Tablet PO ×3 (03:34→19:28)
[2021-02-16] MEDS: dexmedetomidine 400 MCG in sodium chloride 0.9% (100 ml) 100 ML 22.54 MCG IV ×2 (03:38→09:30)
[2021-02-16 04:26] LABS: Basophils # 0.1 10^3/uL (0.0-0.1); Basophils % 0.5 %; Eosinophils # 0.3 10^3/uL (0.0-0.8); Eosinophils % 2.3 %; Hematocrit 36.5 % (37.0-47.0); Hemoglobin 12.1 g/dL (11.5-15.3); Lymphocytes # 1.1 10^3/uL (0.8-4.8); Lymphocytes % 10.1 %; Mean Corpuscular HGB Conc 33.2 g/dL (30.0-36.0); Mean Corpuscular Hemoglobin 30.8 pg (28.0-34.0); Mean Corpuscular Volume 92.9 fl (81-99); Mean Platelet Volume 12.5 fL (7.4-10.4); Monocytes # 0.8 10^3/uL (0.2-0.9); Monocytes % 7.4 %; Neutrophils # 8.88 10^3/uL (1.8-7.7); Neutrophils % 78.5 %; Nucleated Red Blood Cells % 0 %; Platelet Count 220 10^3/cmm (130-400); Red Blood Count 3.93 10^6/uL (4.1-5.3); Red Cell Distribution Width 13.9 % (12.1-15.1); White Blood Count 11.3 10^3/uL (4.0-10.0)
[2021-02-16] MEDS: famotidine 20 mg/2 mL INJ IVP ×2 (05:00→17:38)
[2021-02-16 05:08] LABS: Alanine Aminotransferase 17 U/L (0-33); Albumin Level 3.3 g/dL (3.5-5.2); Alkaline Phosphatase 93 IU/L (35-105); Aspartate Amino Transferase 25 U/L (0-32); Blood Urea Nitrogen 13 mg/dL (6-20); Calcium 8.6 mg/dL (8.5-10.5); Carbon Dioxide 30 mmol/L (22-29); Chloride 95 mmol/L (98-107); Globulin 2.6 g/dL (1.3-4.6); Glomerular Filtration Rate 105.4 mL/min (90-130); Glucose 123 mg/dL (65-115); NT Pro B Type Natriuretic Pept 377 pg/mL (0-125); Osmolality Calculated 295 mOsm/kg (285-295); Sodium 142 mmol/L (136-145); Total Bilirubin 0.4 mg/dL (0.15-1.2); Total Protein 5.9 g/dL (6.6-8.7)
[2021-02-16] MEDS: linezolid premix 600 MG/300 ML PREMIX 300 MG IV (05:56)
[2021-02-16] MEDS: dexamethasone 10 mg/mL INJ 3 MG IVP (05:56)
--- NOTE | 2021-02-16 06:12 | XR_ITS ---
WS: [id number] Exam: XR chest 1V portable [id number] Date/Time of Exam: 02/16/2021 6:19 AM Reason For Exam: SOB Comparison 02/15/2021. Widespread pulmonary infiltrates show little change since the last study. Normal cardiomediastinal si lhouette for technique. ET tube ends about 4 cm above the bart in satisfactory position. An enteric tube extends into the stomach. A left-sided IJ catheter ends at about the cavoatrial junction. The l ungs are fully inflated. XR/XR chest 1V portable [id number] IMPRESSION: 1. Widespread pulmonary infiltrates showing no significant change. 2. ET tube, central line and enteric tube all in satisfactory position without change.
--- NOTE | 2021-02-16 06:15 | NUR.SHIFT ---
Shift Summary: Patient O2 sat 78-82 this AM, during patient bath. Patient not bathed do to oxygen saturation decrease, attempted to allow patient to recover. Patient has not been able to recover, Dr Rockwell notified-STAT ABG and CXR ordered. Patient has been tolerating Q2 turns and oral care before this event. Currently O2 sat 82, RR 23, patient has sedated, nonlabored breaths. BIS and TOF monitored Q2.
[2021-02-16 06:30] LABS: ABG PCO2 47.5 mmHg (35-45); Alveolar-Arterial Oxygen Gradi 79.1 mmHg (5-10); Arterial Blood Gas Hematocrit 38.4 % (37-47); Base Excess ABG 11.7 mmol/L (-2.0-2.0); Blood Gas Allen Test Pos; Blood Gas Operator Identificat JB; Blood Gas Sample Site Radial, right; Blood Gas Sample Type Arterial; Blood Gas Tidal Volume 0.36; Carboxyhemoglobin 1.4 %THgb (0.4-20.1); HCO3 ABG 36.5 mmol/L (22-26); HGB O2 Sat 81.5 % (95-100); Ionized Calcium Level - ABG 1.2 mmol/L (1.1-1.4); Methemoglobin 0.6 % (0.4-1.5); Oxygen Device VENT; Oxygen Saturation ABG 83.1; PO2 ABG 43.9 mmHg (80.0-100.0); Total Hemoglobin 12.5 g/dL (12-16)
[2021-02-16] MEDS: FUROsemide 10 mg/mL SDV 10mL 40 MG IVP ×2 (07:07→19:28)
[2021-02-16] MEDS: piperacillin-tazobactam 3.375 GM in dextrose 5% (plus) 50 ML IV (07:08)
[2021-02-16] MEDS: potassium chloride premix 100 ML 25 MEQ IV (07:50)
[2021-02-16] MEDS: budesonide 0.5 mg/2 mL Neb INHALATION ×2 (08:42→20:33)
[2021-02-16] MEDS: zinc gluconate 50 mg Tablet PO (09:07)
[2021-02-16] MEDS: ascorbic acid 500 mg Tablet 1000 MG PO ×2 (09:07→17:39)
[2021-02-16] MEDS: gabapentin 400 mg Capsule 800 MG PO ×2 (09:08→17:39)
[2021-02-16] MEDS: sertraline 50 mg Tablet 75 MG PO (09:08)
--- NOTE | 2021-02-16 09:08 | PC.CHAP ---
Pastoral Care Encounter/Spiritual Assessment Type of Contact [] Declined location director visit [] Patient/Family/Request visit [] Outpatient visit [] Follow-up visit [] Physician referral [] Code/Alert [x] Routine visit [] Staff referral [] Actively dying [x] Patient sleeping [] Family support [] [] Out of room [] Palliative care [] [] Receiving care in room [] Pre-surgical visit [] Trauma [] Long length of stay [x] ICU visit [x] Other: isolated Relational/Emotional Strength [] Patient feels connected with others/family/visitors/staff [] Distress [] Loneliness/isolation [] Abandonment Spirituality of Patient [] Person of Annalise [] Attends Hinduism of their Annalise [] Believes in Prayer [] Reads Bible or Mu-Ism materials [] There are Spiritual issues to be addressed Supply Chain Buyer Interventions [x] Prayer [] Active listening [] Non-anxious presence [] Spiritual/emotional support [] Crisis/trauma care [] Spiritual counseling [] Bereavement support [] Provided bereavement packet [] Provided Bible/devotional materials [] Provided toy/stuffed animal, coloring book to patient or family member [] Provided Communion [] Anointing/[place] [] Salvation [x] Completed spiritual assessment [] Other: Impact on Illness or Injury [] Angry [] Fearful [] Anxious [] Often cries [] Exhaustion [] Unable to work [] Unable to attend jainism [] Unable to walk/stand [] Unable to read [] Unable to drive [] Unable to eat/drink [] Unable to sleep [] Unable to be with family [] Patient intubated [] Other: Summary Time spent with patient x
[2021-02-16] MEDS: chlorhexidine gluconate 0.12% Btl 473 mL 15 ML MUCOUS MEM ×2 (09:09→17:39)
[2021-02-16] MEDS: artificial tears Op Oint 3.5 gm 1 APPLIC EYE-BOTH ×2 (09:10→17:39)
[2021-02-16] MEDS: insulin lispro 100 unit/1 mL SUBCUT ×3 (10:23→21:47)
[2021-02-16] MEDS: sodium chloride 0.9% 500 ML 10 ML IV (10:24)
[2021-02-16] MEDS: insulin glargine 100 units/1 mL 60 UNIT SUBCUT ×2 (10:27→21:47)
[2021-02-16] MEDS: enoxaparin 120 mg/0.8 mL Syringe SUBCUT ×2 (11:00→23:23)
[2021-02-16] MEDS: levofloxacin-dextrose 5 % 500 MG/100 ML PREMIX 100 MG IV (11:00)
[2021-02-16 12:33] LABS: Glucose Point of Care 201 mg/dL (70-110)
[2021-02-16 12:33] LABS: Glucose Point of Care 173 mg/dL (70-110)
[2021-02-16 12:33] LABS: Glucose Point of Care 186 mg/dL (70-110)
[2021-02-16 12:33] LABS: Glucose Point of Care 180 mg/dL (70-110)
[2021-02-16 12:33] LABS: Glucose Point of Care 178 mg/dL (70-110)
[2021-02-16 12:33] LABS: Glucose Point of Care 144 mg/dL (70-110)
[2021-02-16 12:33] LABS: Glucose Point of Care 134 mg/dL (70-110)
[2021-02-16 12:33] LABS: Glucose Point of Care 171 mg/dL (70-110)
[2021-02-16 12:33] LABS: Glucose Point of Care 189 mg/dL (70-110)
[2021-02-16 12:34] LABS: Glucose Point of Care 193 mg/dL (70-110)
[2021-02-16 12:34] LABS: Glucose Point of Care 220 mg/dL (70-110)
[2021-02-16 12:34] LABS: Glucose Point of Care 193 mg/dL (70-110)
[2021-02-16 12:34] LABS: Glucose Point of Care 216 mg/dL (70-110)
[2021-02-16 12:35] LABS: Glucose Point of Care 197 mg/dL (70-110)
[2021-02-16 12:35] LABS: Glucose Point of Care 124 mg/dL (70-110)
[2021-02-16 12:35] LABS: Glucose Point of Care 200 mg/dL (70-110)
--- NOTE | 2021-02-16 14:04 | PC.NURSE ---
Tube feeding, Nepro Started at approximately 1300 at 10cc/hr free water flushes 100 Q6hr.
--- NOTE | 2021-02-16 14:36 | PC.NURSE ---
Increase in Versed @ 1435 Increase in Versed from 4 to 5mg/hr due to patient BP 188/90, BIS 97, and patient exhibiting slight movement of legs and arms.
--- NOTE | 2021-02-16 15:18 | PM.PN ---
Subjective Subjective: Interval history: Patient was supine and again in the evening yesterday. She tolerated proning better. Saturations on supine later in the evening yesterday were more than 91% but overnight saturations have drifted down again to mid to high 80s. ABG from today morning appreciated. She is currently on 320 tidal volume, PEEP of 12, FiO2 100%. Off pressors. Wean sedated with fentanyl, Versed, Precedex, paralyzed with Nimbex. Medications: Reviewed: Yes Vitals/I&O/Wt Last Vital Signs Temp 98.8 F 02/16/21 08:30 Pulse 63 02/16/21 14:17 Resp 28 H 02/16/21 11:35 BP 114/67 02/16/21 14:00 Pulse Ox 90 02/16/21 14:00 02/16/21 02/16/21 02/16/21 06:59 14:59 22:59 Intake Total 519.283 / 2063.564 1025.300 / 1025.300 Output Total 500 / 4850 Balance 19.283 / -2786.436 1025.300 / 1025.300 Weight last 48 hrs Weight 115.751 kg Weight 123.831 kg Physical Exam Narrative: EXAM NARRATIVE: General: Intubated, sedated, prone, tube feeds stopped HEENT: PERRLA, pupils bilaterally equal and reactive Chest: Bilateral bronchial breath sounds, coarse crackles present all over the lung leigh specially in bilateral middle and lower zones CVS: S1-S2 regular, no murmurs, no tachycardia, no gallops, no rubs Abdomen: Soft, nontender, no organomegaly, bowel sounds present Neuro: Intubated, sedated Urinary Catheter Management^: Yo: Cath Placed During This Visit: yes Reason for Continuing Indwelling Catheter: Accurate Measurement of Urinary Output in Critically Ill Patients Urinary Catheter Date of Insertion: 02/04/21 Urinary Catheter Time of Insertion: 03:15 Data : 02/16/21 03:28 02/16/21 03:28 Micro: Microbiology 02/13/21 14:00 Gram Stain - Final Sputum - Endotracheal Tube Aspirate Sputum Culture - Final Klebsiella oxytoca 02/15/21 15:00 C.difficile Toxin B Gene (PCR) - Final Stool Routine Collection 02/14/21 13:35 MRSA Culture - Final Nose A&P Assessment and plan (1) Acute respiratory distress syndrome (ARDS) due to 2019 novel coronavirus: Status: Acute (2) Gram-negative pneumonia: Status: Acute (3) Severe sepsis with septic shock: Status: Acute (4) Pneumonia due to COVID-19 virus: Status: Acute (5) Acute kidney injury: As above Status: Acute (6) Diabetes: Lantus, sliding scale Status: Acute Additional A&P Information ARDS secondary to COVID-19 pneumonia along with obstructive sleep apnea: Severe disease. Post completion of course with IV remdesivir and 1 dose of Actemra. Post 3 proning sessions. Earlier in the admission patient's sputum culture grew staph aureus. Patient has remained on IV antibiotic therapy with Zosyn and linezolid. Patient reintubated on 02/13. Patient prone for 1 session on 02/14. Continue sedation with Versed and fentanyl, Precedex keep paralyzed with Nimbex. Urinalysis, urine Legionella, bacterial antigen negative. Sputum culture growing Klebsiella. Sensitivities appreciated. Stop Zosyn, linezolid. Start patient on imipenem. Continue Levaquin. C. difficile negative. Rectal tube in place. Start Imodium. Can remove rectal tube accordingly. D-dimer down to 2.9. Continue to monitor inflammatory markers including CRP, ESR, D-dimer every 48 hourly. Continue with full dose Lovenox for now. Will transition to Eliquis once done with 5 days of full dose Lovenox most likely tomorrow on February 17 depending on goals of care discussion with . Dexamethasone 3 mg IV daily. Budesonide twice daily, DuoNebs every 4 hours. Given severe ARDS we will try to keep patient as net negative as possible. Continue with IV Lasix 80 mg twice daily. Echocardiogram done earlier in the admission shows an EF 55%, grade 1 diastolic dysfunction, trace MRAnahi Net 6.2 L negative this hospitalization. Type 2 diabetes mellitus continue with insulin sliding scale every 6 hourly. Monitor electrolytes. Metabolic alkalosis: Most likely secondary to diarrhea and aggressive diuresis. Will repeat CMP in afternoon. Replete electrolytes accordingly. Severely guarded prognosis. Patient's prognosis and medical update discussed in detail with patient's Mr. Lenard Martin. We discussed unfortunately patient is requiring high oxygen supplementation and is still not able to maintain saturations in high 80s. We discussed it is not amenable for patient to get tracheostomy right now given high PEEP and FiO2 requirement. All the questions were answered. Limited resuscitation. DNR. Restart tube feeds once prone for more than 2 hours. Famotidine for PUD prophylaxis Goals of care discussion: I had a long talk with patient's /DPOA Mr. Lenard Martin over the phone. We discussed unfortunately patient is still requiring high oxygen supplementation at maximum ventilator support and continues to saturate in mid 80s at the best even after maximal effort with diuresis, extra proning sessions and multiple prolonged antibiotics. We discussed about switching of antibiotics today. After the discussion plan for now would be to continue current treatment without escalation with CODE STATUS of limited resuscitation/DNR with very visitation of goals of care tomorrow with physically present at bedside early childhood director. All the questions were answered. Attestations Medical Necessity Statement*: Requires further hospitalization for management of ARDS secondary COVID-19 pneumonia requiring high oxygen supplementation and maximum ventilator support Critical Care Time: The high probability of a clinically significant, sudden or life threatening deterioration of the patient's [pulmonology, cardiac] system(s) required my full and direct attention, intervention and personal management. The critical care time is as shown. 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 Fwd Diagnoses Acute respiratory distress syndrome (ARDS) due to 2019 novel coronavirus U07.1; J80 Gram-negative pneumonia J15.6 Severe sepsis with septic shock A41.9; R65.21 Pneumonia due to COVID-19 virus U07.1; J12.82 Acute kidney injury N17.9 Diabetes E11.9
--- NOTE | 2021-02-16 15:52 | PC.NURSE ---
Increased Versed 1552 Increased Versed from 5 to 6mg/hr. BIZ 79, BP 169/84. Patient exhibiting slight movement of extremities and head.
[2021-02-16 17:49] LABS: Glucose Point of Care 145 mg/dL (70-110)
[2021-02-16 17:54] LABS: Glucose Point of Care 181 mg/dL (70-110)
--- NOTE | 2021-02-16 18:39 | PC.NURSE ---
Shift Note Frequent safety and comfort rounds continue. Orders and/or nursing care completed as indicated. Patient monitored for response to intervention and treatment(s). Education provided includes medication education, ventilator settings, patient condition and updates. Patient spouse/major account representative verbalized understanding. Patient receiving tube feeding per providers orders. TOF 4, consistently. BIS currently at 41 Drips: Fentanyl- 200 Nimbex-2 Versed- 6 (max)
[2021-02-16 21:47] LABS: Glucose Point of Care 145 mg/dL (70-110)
[2021-02-16] MEDS: gabapentin 400 mg Capsule 1600 MG PO (21:48)
[2021-02-17] VITALS (43 sets, daily range): BP systolic 91–220; BP diastolic 45–136; PULSE 0–151; RESP 28–40; TEMP 36.8–37.2; O2SAT 72–93
[2021-02-17] MEDS: hyDRALAzine 20 mg/mL INJ 1 mL 10 MG IVP (03:33)
[2021-02-17] MEDS: tizanidine 4 mg Tablet PO (03:33)
[2021-02-17] MEDS: ipratropium-albuterol 3 mL Neb INHALATION ×2 (03:50→08:02)
[2021-02-17 04:10] LABS: Glucose Point of Care 136 mg/dL (70-110)
[2021-02-17 04:11] LABS: Basophils # 0.1 10^3/uL (0.0-0.1); Basophils % 0.7 %; Eosinophils # 0.6 10^3/uL (0.0-0.8); Hematocrit 43.7 % (37.0-47.0); Hemoglobin 14.5 g/dL (11.5-15.3); Lymphocytes # 2.6 10^3/uL (0.8-4.8); Lymphocytes % 13.1 %; Mean Corpuscular HGB Conc 33.2 g/dL (30.0-36.0); Mean Corpuscular Hemoglobin 31.3 pg (28.0-34.0); Mean Corpuscular Volume 94.4 fl (81-99); Mean Platelet Volume 11.2 fL (7.4-10.4); Monocytes # 1.7 10^3/uL (0.2-0.9); Monocytes % 8.6 %; Neutrophils # 14.31 10^3/uL (1.8-7.7); Neutrophils % 73.1 %; Nucleated Red Blood Cells % 0.1 %; Platelet Count 367 10^3/cmm (130-400); Red Blood Count 4.63 10^6/uL (4.1-5.3); Red Cell Distribution Width 15.2 % (12.1-15.1); White Blood Count 19.6 10^3/uL (4.0-10.0)
[2021-02-17] MEDS: famotidine 20 mg/2 mL INJ IVP (04:11)
[2021-02-17] MEDS: metoprolol tartrate 1 mg/1 mL SDV 5 mL 5 MG IVP (04:11)
[2021-02-17 04:27] LABS: D Dimer 3.03 ug/mIFEU (0-0.59)
[2021-02-17 04:35] LABS: Anion Gap 18.5 (5-19); Blood Urea Nitrogen 20 mg/dL (6-20); Calcium 9.3 mg/dL (8.5-10.5); Carbon Dioxide 29 mmol/L (22-29); Chloride 93 mmol/L (98-107); Glomerular Filtration Rate 130.1 mL/min (90-130); Glucose 152 mg/dL (65-115); Magnesium 1.8 mg/dL (1.7-2.3); Osmolality Calculated 290 mOsm/kg (285-295); Potassium 3.5 mmol/L (3.5-5.1); Sodium 137 mmol/L (136-145)
[2021-02-17 04:45] LABS: C Reactive Protein 17.8 mg/L (0.0-4.9); NT Pro B Type Natriuretic Pept 230 pg/mL (0-125)
[2021-02-17] MEDS: dexamethasone 10 mg/mL INJ 3 MG IVP (06:07)
--- NOTE | 2021-02-17 06:19 | NUR.SHIFT ---
Shift Summary: Patient had an episode where SBP>200, HR 120. Dr Rockwell notified, one time dose hydralazine given with minimal response, metoprolol given afterwards-heart rate decrease to 90-100s, BP resolved. Q2 turns, oral care, BIS, TOF done and maintained per protocols. updated on patient status, patient remains on FiO2 100% desats with activity.
[2021-02-17 07:41] LABS: Glucose Point of Care 208 mg/dL (70-110)
[2021-02-17] MEDS: budesonide 0.5 mg/2 mL Neb INHALATION (08:02)
[2021-02-17] MEDS: FUROsemide 10 mg/mL SDV 10mL 40 MG IVP (08:38)
[2021-02-17] MEDS: sertraline 50 mg Tablet 75 MG PO (08:39)
[2021-02-17] MEDS: artificial tears Op Oint 3.5 gm 1 APPLIC EYE-BOTH (08:39)
[2021-02-17] MEDS: gabapentin 400 mg Capsule 800 MG PO (08:40)
[2021-02-17] MEDS: ascorbic acid 500 mg Tablet 1000 MG PO (08:40)
[2021-02-17] MEDS: zinc gluconate 50 mg Tablet PO (08:40)
[2021-02-17] MEDS: hyDRALAzine 25 mg Tablet PO (08:40)
--- NOTE | 2021-02-17 09:15 | PC.NURSE ---
here. Provided N95 for him to wear, he refuses. Updated him: her oxygenation, 79%, FIO2 maxed at 100%, She is on Fentanyl and Versed and , She has HTN now, B/P given. She is breathing over vent.She is not doing well. We will notifiy that you are here. Dr Jose notified, see physician notification. Informed . visibly upset, will wait in waiting room. This nurse attempted to show him the button to push to open automatic doors as he was pushing other buttons. He replied REALLY! LADY! I just want to be alone for awhile offered Kleenex, water and/or coffee. All declined. now sobbing in waiting room.
--- NOTE | 2021-02-17 09:55 | PC.OT ---
PER NURSING, PATIENT IS BEING PLACED ON COMFORT CARE THIS MORNING. DISCHARGE SKILLED OT. WILL AWAIT NEW ORDERS IF A STATUS CHANGE.
--- NOTE | 2021-02-17 10:37 | PC.RESP ---
pt terminally extubated per family wishes, pt's at bedside
[2021-02-17] MEDS: morphine 4 mg/mL SDV 1 mL IVP (10:41)
[2021-02-17] MEDS: LORazepam 2 mg/mL INJ 1 mL IVP (10:42)
--- NOTE | 2021-02-17 11:35 | PC.NURSE ---
Patient terminally extubated at 10:37 at bedside. Medications given for comfort, see MAR. Time of 1104. No heart sounds auscultated and no rhythm noted. at bedside. Dr. Santana notified at 1115. [facility] and [facility] also notified. Post mortem care provided.
--- NOTE | 2021-02-17 12:00 | PC.NURSE ---
Post mortem care provided. All lines and tubed removed.
--- NOTE | 2021-02-17 12:00 | PC.NURSE ---
Addendum entered by Trixie Ramirez RN 02/17/21 13:42: Witnessed Fentanyl and Versed waste, see amounts in MAR. Original Note: IV medications wasted, see MAR. Fentanyl and Versed waste witnessed by MARLEE Marcum.
--- NOTE | 2021-02-17 12:56 | P.DES_ITS ---
Discharge Providers DDS Date of Admission: 02/04/21 06:39 Date Summary Completed: 02/17/21 Attending Provider at Admission: Owen Brizuela Time of : 11:04 Attending Provider at Discharge: Abdulaziz Santana MD Consults: Pulmonology/stadium manager: Dr. Eden GAN Diagnoses Hospital Diagnoses (1) Acute respiratory distress syndrome (ARDS) due to 2019 novel coronavirus: (2) Gram-negative pneumonia: (3) Severe sepsis with septic shock: (4) Pneumonia due to COVID-19 virus: (5) Acute kidney injury: (6) Diabetes: Reason for Visit Reason for Visit: HIGH BLOOD SUGAR Summary Date and Time of Date of : 02/17/21 Time of : 11:04 Summary Summary: alee Martin is a 50 year old female with a past medical history of hypertension, diabetes mellitus, obstructive sleep apnea, morbid obesity who was brought to the hospital on February 04 with altered mental status. In the emergency department the patient was hypoxic with an oxygen saturation in the 30s, she was hypotensive. Chest x-ray revealed diffuse bilateral infiltrate. She tested positive for COVID-19. Her symptoms started last which has been progressively getting worse. The patient was found to have blood sugar in the 300s, she was hypotensive received 2 L normal saline bolus and started on peripheral Levophed. Her mental status improved after fluid boluses. Eventually, the patient was saturating in the 90s on BiPAP 100%. On admission patient was in DKA and septic shock which resolved quickly with IV fluids and insulin. Patient was admitted to the ICU and started on treatment with IV dexamethasone, remdesivir and even received 1 dose of Actemra on February 04. She was also started on empiric broad-spectrum antibiotics.. During the day patient continued to have low oxygen saturation for which she received IV diuresis. As she had high inflammatory markers and was unable to maintain her oxygenation at 100% FiO2 with BiPAP decision was made to intubate the patient on February 04. Patient was continued on treatment and was eventually extubated to BiPAP on February 09. Patient had a difficult extubation and post extubation time secondary to agitation from claustrophobia from CPAP and withdrawal from multiple psych medications. Eventually medications were adjusted and she did better with BiPAP. Unfortunately patient had respiratory distress again on February 13 when she was not able to maintain her oxygen supplementation and after confirming about the CODE STATUS with patient and her she was intubated again. Post intubation patient had 1 additional session of proning. Urine culture from second intubation grew Klebsiella. Antibiotics were further tailored accordingly. As even with high oxygen of supplementation with maximum ventilator support patient's oxygen saturations continued to lag behind because of which further goals of care discussions were done with her and she was admitted comfort care measures only on February 17 and eventually she at a comfortable state on February 17 at 11:04 AM with at bedside. Additional Data Confirmation of as documented by pronouncing clinician: no pulse Family: at bedside Additional persons at bedside: nursing staff Attending/PCP notified?: I am attending Was code activated?: No Autopsy requested?: No Advance directives?: No Hospice patient?: No Discharge Plan Discharge Patient Disposition: Condition: Stable Prescriptions: No Action Zyrtec 10 mg Tablet 10 mg PO DAILY RF: 0 tizanidine 4 mg Tablet 4 mg PO Q8H RF: 0 Zofran 4 mg Tablet 4 mg PO Q6H PRN (Reason: Nausea And Vomiting) RF: 0 metoprolol succinate 100 mg Tablet Extended Release 24 Hr 100 mg PO DAILY RF: 0 amlodipine 5 mg Tablet 5 mg PO DAILY RF: 0 Aspir-81 81 mg Tablet,Delayed Release (Dr/Ec) 81 mg PO DAILY RF: 0 gabapentin 800 mg Tablet See Rx Instructions .ROUTE .COMPLEX RF: 0 trazodone 100 mg Tablet 200 mg PO BEDTIME RF: 0 Singulair 10 mg Tablet 10 mg PO DAILY RF: 0 Nystop 100,000 unit/gram Powder 1 applic TOPICAL TID PRN (Reason: UNKNOWN) RF: 0 ProAir HFA 90 mcg/actuation Hfa Aerosol Inhaler 2 puff INHALATION QID PRN (Reason: Shortness Of Breath) RF: 0 lisinopril 40 mg Tablet 40 mg PO DAILY RF: 0 Flonase 50 mcg/actuation [place],Suspension 1 spray INTRANASAL EVERY OTHER DAY PRN (Reason: Allergy Symptoms) RF: 0 metformin 500 mg Tablet Extended Release 24 Hr 500 mg PO BID RF: 0 Zoloft 50 mg Tablet 75 mg PO DAILY RF: 0 oxycodone 5 mg Tablet 5 mg PO Q6H MDD 4 TABS PRN (Reason: Pain) RF: 0 Admelog SoloStar U-100 Insulin 100 unit/mL Insulin Pen 20 unit SUBCUT TID RF: 0 topiramate 50 mg Tablet 50 mg PO BID RF: 0 melatonin 5 mg Tablet 5 mg PO BEDTIME PRN (Reason: Sleep) RF: 0 sumatriptan succinate 6 mg/0.5 mL Syringe 6 mg SUBCUT DAILY PRN (Reason: Migraine Headache) RF: 0 potassium chloride 20 mEq Tablet Extended Release 20 meq PO BID RF: 0 Steglatro 15 mg Tablet 15 mg PO QAM RF: 0 Toujeo Max U-300 SoloStar 300 unit/mL (3 mL) Insulin Pen 75 unit SUBCUT BID RF: 0 Patient Instructions: Opioid Safety Probable Cause of Probable cause of : COVID-19 DS Attestations Time Spent in /Discharge Care*: greater than 30 min Quality - AMI: AMI present?: No Quality - Stroke: CVA present?: No Quality - VTE: VTE present?: No Coding Level of Care Code Acute [employer] Operations [employer] for [facility] Fwd Diagnoses Acute respiratory distress syndrome (ARDS) due to 2019 novel coronavirus U07.1; J80 Gram-negative pneumonia J15.6 Severe sepsis with septic shock A41.9; R65.21 Pneumonia due to COVID-19 virus U07.1; J12.82 Acute kidney injury N17.9 Diabetes E11.9
--- NOTE | 2021-02-17 13:30 | PC.NURSE ---
Body transfer to [facility].
--- NOTE | 2021-02-17 13:44 | PC.NURSE ---
took all patient belongings home.
--- NOTE | 2021-02-17 13:45 | PC.NURSE ---
Patient belongings sent with at 1115.
== END 2021-02-17 13:30 | disposition expired | DRG 870 ==
LOC: ER 04:30 → ICU 05:55
PROVIDERS: Family Medicine; Internal Medicine; Internal Medicine Critical Care Medicine; Student in an Organized Health Care Education/Training Program; Admitting Provider Internal Medicine; Emergency Provider Emergency Medicine; Visit Provider Student in an Organized Health Care Education/Training Program
DX: A41.9 Sepsis, unspecified organism (principal); E11.10 Type 2 diabetes mellitus with ketoacidosis without coma; R65.21 Severe sepsis with septic shock; U07.1 COVID-19; J12.82 Pneumonia due to coronavirus disease 2019; G93.41 Metabolic encephalopathy; J15.9 Unspecified bacterial pneumonia; J80 Acute respiratory distress syndrome; Z68.42 Body mass index [BMI] 45.0-49.9, adult; N17.9 Acute kidney failure, unspecified; N39.0 Urinary tract infection, site not specified; E87.1 Hypo-osmolality and hyponatremia; M62.82 Rhabdomyolysis; I95.9 Hypotension, unspecified; E66.01 Morbid (severe) obesity due to excess calories; Z87.891 Personal history of nicotine dependence; Z51.5 Encounter for palliative care; B96.1 Klebsiella pneumoniae [K. pneumoniae] as the cause of diseases classified elsewhere; F40.240 Claustrophobia; E78.1 Pure hyperglyceridemia; B95.8 Unspecified staphylococcus as the cause of diseases classified elsewhere; G47.33 Obstructive sleep apnea (adult) (pediatric)
CPT/HCPCS: 36415; 36416; 36592; 36600; 51702; 71045; 80048; 80051; 80053; 80306; 80307; 81001; 81003; 82009; 82330; 82550; 82803; 82805; 82962; 83540; 83550; 83605; 83721; 83735; 83880; 84100; 84132; 84145; 84295; 84443; 84478; 84484; 85007; 85025; 85378; 85610; 85651; 86140; 86403; 87040; 87070; 87077; 87186; 87205; 87426; 87449; 87493; 87641; 93005; 93306; 93970; 94002; 94003; 94640; 94660; 94799; 96365; 96366; 96372; 96375; 97110; 97161; 97165; 99291; J0330; J0360; J0456; J0743; J1100; J1630; J1650; J1815 ×2; J1940; J1956; J2020; J2060; J2250; J2270; J2543; J2704; J2930; J3010; J3262; J3370; J3475; J3480; J3490; J7030; J7040; J7050; J7626; J7799; P9047